=== PATIENT | male | born 1945 | race Caucasian/White ===

== ENCOUNTER 2019-08-05 06:35 | Outpatient (CLI) | payer MEDICARE, SELFPAY ==
[2019-08-05 07:47] LABS: Hemoglobin A1C 5.8 % (<5.7)
[2019-08-05 07:48] LABS: Blood Urea Nitrogen 21 mg/dL (9-20); Calcium 9.7 mg/dL (8.4-10.2); Carbon Dioxide 32 mmol/L (22-30); Chloride 104 mmol/L (98-107); Cholesterol 126 mg/dL (0-200); Estimated Glomerular Filt Rate > 60; Glucose 107 mg/dL (75-110); HDL Direct 40 mg/dL; Potassium 4.3 mmol/L (3.4-5.0); Sodium 141 mmol/L (137-145); Triglycerides 66 mg/dL (<150)
[2019-08-05 08:21] LABS: LDL Cholesterol Direct 67 mg/dL
== END 2019-08-05 06:36 | disposition home or self-care (01) ==
PROVIDERS: PCP Internal Medicine; Visit Provider Internal Medicine
DX: E11.9 Type 2 diabetes mellitus without complications (principal); E78.2 Mixed hyperlipidemia; I10 Essential (primary) hypertension; Z79.899 Other long term (current) drug therapy
CPT/HCPCS: 36415; 80048; 80061; 83036; 84443

== ENCOUNTER 2019-12-15 06:35 | Outpatient (CLI) | payer MEDICARE, SELFPAY ==
[2019-12-15 07:28] LABS: Anion Gap 7 mmol/L (8-16); Blood Urea Nitrogen 20 mg/dL (9-20); Calcium 9.5 mg/dL (8.4-10.2); Carbon Dioxide 30 mmol/L (22-30); Chloride 102 mmol/L (98-107); Cholesterol 118 mg/dL (0-200); Estimated Glomerular Filt Rate > 60; Glucose 111 mg/dL (75-110); HDL Direct 36 mg/dL; Potassium 4.4 mmol/L (3.4-5.0); Sodium 139 mmol/L (137-145); Triglycerides 66 mg/dL (<150)
[2019-12-15 07:39] LABS: LDL Cholesterol Direct 60 mg/dL
[2019-12-15 07:44] LABS: Hemoglobin A1C 5.8 % (<5.7)
== END 2019-12-15 06:36 | disposition home or self-care (01) ==
PROVIDERS: PCP Internal Medicine; Visit Provider Internal Medicine
DX: E11.9 Type 2 diabetes mellitus without complications (principal); I10 Essential (primary) hypertension; E78.2 Mixed hyperlipidemia
CPT/HCPCS: 36415; 80048; 80061; 83036

== ENCOUNTER 2020-03-02 06:36 | Outpatient (CLI) | payer MEDICARE, SELFPAY ==
[2020-03-02 07:44] LABS: Basophils Absolute Auto 0.1 K/mm3 (0.0-0.1); Basophils Percent Auto 0.6 % (0.2-1.2); Eosinophils Absolute Auto 0.3 K/mm3 (0-0.3); Eosinophils Percent Auto 3.2 % (0-4.4); Hematocrit 38.7 % (42.0-52.0); Hemoglobin 13.1 g/dL (14.0-18.0); Immature Granulocyte Absolute 0.03 K/mm3 (0.00-0.031); Immature Granulocyte Percent A 0.4 % (0-0.5); Lymphocytes Absolute Auto 2.14 K/mm3 (0.9-3.2); Lymphocytes Percent Auto 27.5 % (18.3-44.2); Mean Corpuscular HGB Conc 33.9 g/dl (32-36); Mean Corpuscular Hemoglobin 31.9 pg (26-34); Mean Corpuscular Volume 94.2 fl (80-100); Mean Platelet Volume 11.2 fl (7.4-10.4); Monocytes Absolute Auto 0.6 K/mm3 (0.1-0.6); Monocytes Percent Auto 7.4 % (2.6-8.5); Neutrophils Absolute Auto 4.7 K/mm3 (1.3-6.7); Neutrophils Percent Auto 60.9 % (45.5-73.1); Platelet Count Result 259 k/mm3 (150-375); Red Blood Count 4.11 M/mm3 (4.6-6.20); Red Cell Distribution Width 12.6 % (11.5-14.5); White Blood Count 7.8 K/mm3 (4.5-10.0)
[2020-03-02 07:53] LABS: Alanine Aminotransferase 32 U/L (4-50); Albumin Level 4.2 g/dL (3.5-5.1); Alkaline Phosphatase 94 U/L (38-126); Anion Gap 7 mmol/L (8-16); Aspartate Amino Transferase 30 U/L (17-59); Bilirubin,Total 0.9 mg/dL (0.2-1.3); Blood Urea Nitrogen 21 mg/dL (9-20); Calcium 9.8 mg/dL (8.4-10.2); Carbon Dioxide 32 mmol/L (22-30); Chloride 103 mmol/L (98-107); Cholesterol 119 mg/dL (0-200); Estimated Glomerular Filt Rate > 60; Glucose 109 mg/dL (75-110); HDL Direct 40 mg/dL; Potassium 4.7 mmol/L (3.4-5.0); Sodium 142 mmol/L (137-145); Triglycerides 72 mg/dL (<150)
[2020-03-02 08:04] LABS: LDL Cholesterol Direct 58 mg/dL
[2020-03-02 08:10] LABS: Hemoglobin A1C 5.5 % (<5.7)
[2020-03-02 09:43] LABS: Free T4 Free Thyroxine 0.89 ng/mL (0.78-2.19)
== END 2020-03-02 06:37 | disposition home or self-care (01) ==
PROVIDERS: PCP Internal Medicine; Visit Provider Internal Medicine
DX: E78.2 Mixed hyperlipidemia (principal); I10 Essential (primary) hypertension; E11.9 Type 2 diabetes mellitus without complications; Z79.899 Other long term (current) drug therapy
CPT/HCPCS: 36415; 80048; 80061; 80076; 83036; 84439; 84443; 85025

== ENCOUNTER 2020-03-08 07:32 | Outpatient (CLI) | payer MEDICARE, SELFPAY ==
[2020-03-08 09:39] LABS: Iron 112 ug/dL (49-181)
[2020-03-08 09:52] LABS: Percent Iron Saturation 35 % (20-50)
[2020-03-08 10:10] LABS: Prostate Specific Antigen 3.1 ng/mL (< OR = 4.0)
[2020-03-08 10:55] LABS: Folic Acid > 20.0 ng/mL (2.76->20)
[2020-03-10 23:41] LABS: Testosterone Total 671 ng/dL (250-1100)
[2020-03-11 04:32] LABS: Methylmalonic Acid 166 nmol/L (87-318)
[2020-03-11 04:54] LABS: Triiodothyronine T3 Free 2.9 pg/mL (2.3-4.2)
== END 2020-03-08 07:33 | disposition home or self-care (01) ==
PROVIDERS: PCP Internal Medicine; Visit Provider Internal Medicine
DX: R53.83 Other fatigue (principal); E11.9 Type 2 diabetes mellitus without complications; Z79.899 Other long term (current) drug therapy; R97.20 Elevated prostate specific antigen [PSA]; Z12.5 Encounter for screening for malignant neoplasm of prostate
CPT/HCPCS: 36415; 82607; 82728; 82746; 83540; 83550; 83921; 84153; 84403; 84481; G0103

== ENCOUNTER 2020-09-01 06:33 | Outpatient (CLI) | payer MEDICARE, SELFPAY ==
[2020-09-01 07:41] LABS: Potassium 4.3 mmol/L (3.4-5.0)
[2020-09-01 07:42] LABS: Hemoglobin A1C 5.9 % (<5.7)
[2020-09-01 07:44] LABS: Alanine Aminotransferase 36 U/L (4-50); Albumin Level 4.4 g/dL (3.5-5.1); Alkaline Phosphatase 98 U/L (38-126); Anion Gap 5 mmol/L (8-16); Aspartate Amino Transferase 35 U/L (17-59); Bilirubin,Total 0.7 mg/dL (0.2-1.3); Blood Urea Nitrogen 25 mg/dL (9-20); Calcium 10.1 mg/dL (8.4-10.2); Carbon Dioxide 34 mmol/L (22-30); Chloride 103 mmol/L (98-107); Cholesterol 132 mg/dL (0-200); Estimated Glomerular Filt Rate > 60; Glucose 119 mg/dL (75-110); HDL Direct 39 mg/dL; Sodium 142 mmol/L (137-145); Triglycerides 70 mg/dL (<150)
[2020-09-01 07:53] LABS: LDL Cholesterol Direct 72 mg/dL
[2020-09-04 07:56] LABS: Homocysteine 11.5 umol/L (<11.4)
[2020-09-05 12:05] LABS: Vitamin D 1,25 (OH)2 Total 29 pg/mL (18-72); Vitamin D2 1,25 (OH)2 <8 pg/mL; Vitamin D3 1,25 (OH)2 29 pg/mL
== END 2020-09-01 06:34 | disposition home or self-care (01) ==
PROVIDERS: PCP Internal Medicine; Visit Provider Internal Medicine
DX: E55.9 Vitamin D deficiency, unspecified (principal); E11.9 Type 2 diabetes mellitus without complications; E78.2 Mixed hyperlipidemia; R79.89 Other specified abnormal findings of blood chemistry; I10 Essential (primary) hypertension
CPT/HCPCS: 36415; 80053; 80061; 82652; 83036; 83090

== ENCOUNTER 2020-10-01 07:49 | Outpatient (CLI) | payer MEDICARE, SELFPAY ==
[2020-10-01 08:41] LABS: Prostate Specific Antigen 4.9 ng/mL (< OR = 4.0)
== END 2020-10-01 07:50 | disposition home or self-care (01) ==
PROVIDERS: PCP Internal Medicine; Visit Provider Internal Medicine
DX: R97.20 Elevated prostate specific antigen [PSA] (principal)
CPT/HCPCS: 36415; 84153

== ENCOUNTER 2020-11-15 02:33 | Day surgery (SDC) | payer MEDICARE, SELFPAY ==
[2020-11-04 13:46] VITALS: BMI 25.9
[2020-11-15 10:33] VITALS: BP 154/81; PULSE 68; RESP 18; TEMP 36.3; O2SAT 97
[2020-11-15] MEDS: LACTATED RINGERS 1,000 ML 150 ML IV CONT (10:45)
[2020-11-15 10:51] LABS: Glucose Point of Care 89 mg/dl (65-105)
--- NOTE | 2020-11-15 11:19 | WPDANESEPPF ---
Anes - Initial Pre Proc Eval Procedure: Operation Date: 11/15/20 11:00 Proposed Procedures p Colonoscopy - Don Ashby MD Date/Time: 11/15/20 11:19 Surgeon: Don Ashby MD Pre Op Diagnosis: iron deficiency anemia Patient Data Age: 75 Gender: M Height: 1.7 m Weight: 74.8 kg Last Vital Signs Temp 97.3 F L 11/15/20 10:33 Pulse 68 11/15/20 10:33 Resp 18 11/15/20 10:33 BP 154/81 H 11/15/20 10:33 Pulse Ox 97 11/15/20 10:33 Allergies Allergy/AdvReac Type Severity Reaction Status Date / Time adhesive tape Allergy Blister Verified 11/15/20 10:32 Home Medications Medication Instructions Recorded Confirmed Type xdbkqtom-irq-xflna acid 300 1 tablet PO DAILY #90 tablet 03/31/19 11/04/20 Rx mcg-lycopene 600 mcg-lutein 300 mcg tablet atorvastatin 80 mg tablet See Rx Instructions .ROUTE 02/26/20 11/04/20 Rx .COMPLEX #90 tablet famotidine 20 mg tablet See Rx Instructions .ROUTE 03/15/20 11/04/20 Rx .COMPLEX #90 tablet folic acid-vit B6-vit B12 2.2 1 tablet PO DAILY #90 tablet 04/29/20 11/04/20 Rx mg-25 mg-0.5 mg tablet amlodipine 5 mg tablet See Rx Instructions .ROUTE 07/02/20 11/04/20 Rx .COMPLEX #90 tablet losartan 50 mg tablet See Rx Instructions .ROUTE 07/20/20 11/04/20 Rx .COMPLEX #90 tablet isosorbide mononitrate 30 mg See Rx Instructions .ROUTE 08/13/20 11/04/20 Rx tablet,extended release 24 hr .COMPLEX #90 tablet metformin 1,000 mg tablet 1,000 mg PO DAILY #90 tablet 09/09/20 11/04/20 Rx Laboratory Tests 11/15/20 10:43 POC Capillary Glucose 89 mg/dl mg/dl (65-105) Patient hx anesthesia problems: none Family hx anesthesia problems: none PMFSH Past Medical History Medical History (Updated 11/03/20 @ 09:24 by Luda Quinonez) ASHD (arteriosclerotic heart disease) Benign essential HTN BMI 27.0-27.9,adult BMI 29.0-29.9,adult DJD (degenerative joint disease) DM2 (diabetes mellitus, type 2) Elevated PSA Encounter for Medicare annual wellness exam Encounter for routine adult health examination without abnormal findings Fatigue Follow up Grade I diastolic dysfunction Echo Hearing loss Hyperlipidemia Hypogonadism Iron deficiency anemia Lung nodule On penitentiary drug therapy Shingles Trochanteric bursitis, left hip Surgical History Surgical History (Updated 11/03/20 @ 09:24 by Luda Quinonez) History of bowel resection Hx of total knee replacement Family History Family History Mother Family history of diabetes mellitus in first degree relative Diabetes mellitus Other Family history of gout Hypertension Social History Social History Alcohol intake: current Substance use: never Substance use type: does not use Living arrangements: with family Gender identity (if verbalized by the patient): Male Anes - Eval Final PreProcedure Day of Procedure 11/15/20 11:19 Patient weight: overweight Heart: regular rate and rhythm Lungs: clear to auscultation Airway: Mallampati scale class III Neurological: alert and oriented Last oral intake: >/= 8 hours ASA classification: III Emergent: no Anesthetic plan: proceed Anesthesia type and monitoring: general GIVS and standard monitoring Informed Consent: The patient's anesthetic plan and its attendant risks and benefits were discussed with the patient/family/POA. Questions were solicited and answers provided to the satisfaction of the patient/family/POA.
--- NOTE | 2020-11-15 11:28 | PM.HPGS ---
History of Present Illness History of Present Illness Consent: Risks, benefits, and alternatives have been discussed and questions answered. Patient agrees to proceed with procedure. Chief complaint: iron deficiency anemia Narrative: Herb Rendon is a 75 year old male Who has been found to have dropping blood counts. His hemoglobin is now 13.1. 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 After that surgical procedure he lost 3 units of blood. One small polyp was removed when he had a colonoscopy not quite 2 years ago. He does not see blood in his stools Review of Systems Review of Systems: All systems reviewed & are unremarkable except as noted in HPI and below PMFSH Past Medical History Medical History ASHD (arteriosclerotic heart disease) Benign essential HTN BMI 27.0-27.9,adult BMI 29.0-29.9,adult DJD (degenerative joint disease) DM2 (diabetes mellitus, type 2) Elevated PSA Encounter for Medicare annual wellness exam Encounter for routine adult health examination without abnormal findings Fatigue Follow up Grade I diastolic dysfunction Echo Hearing loss Hyperlipidemia Hypogonadism Iron deficiency anemia Lung nodule 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 Shingles Trochanteric bursitis, left hip Surgical History Surgical History History of bowel resection Hx of total knee replacement Family History Family History Mother Family history of diabetes mellitus in first degree relative Diabetes mellitus Other Family history of gout Hypertension Social History Social History Alcohol intake: current Substance use: never Substance use type: does not use Living arrangements: with family Gender identity (if verbalized by the patient): Male Meds Home Medications and Allergies Home Medications Medication Instructions Recorded Confirmed Type fzvqofzx-iai-zipaz acid 300 1 tablet PO DAILY #90 tablet 03/31/19 11/04/20 Rx mcg-lycopene 600 mcg-lutein 300 mcg tablet atorvastatin 80 mg tablet See Rx Instructions .ROUTE 02/26/20 11/04/20 Rx .COMPLEX #90 tablet famotidine 20 mg tablet See Rx Instructions .ROUTE 03/15/20 11/04/20 Rx .COMPLEX #90 tablet folic acid-vit B6-vit B12 2.2 1 tablet PO DAILY #90 tablet 04/29/20 11/04/20 Rx mg-25 mg-0.5 mg tablet amlodipine 5 mg tablet See Rx Instructions .ROUTE 07/02/20 11/04/20 Rx .COMPLEX #90 tablet losartan 50 mg tablet See Rx Instructions .ROUTE 07/20/20 11/04/20 Rx .COMPLEX #90 tablet isosorbide mononitrate 30 mg See Rx Instructions .ROUTE 08/13/20 11/04/20 Rx tablet,extended release 24 hr .COMPLEX #90 tablet metformin 1,000 mg tablet 1,000 mg PO DAILY #90 tablet 09/09/20 11/04/20 Rx Allergies Allergy/AdvReac Type Severity Reaction Status Date / Time adhesive tape Allergy Blister Verified 11/15/20 10:32 Vital Signs Vital Signs - 24 hr 11/15/20 10:33 Temperature 36.3 C L Pulse Rate 68 Respiratory Rate 18 Blood Pressure 154/81 H Pulse Oximetry 97 Exam Resp: Auscultation: clear to auscultation bilaterally Cardio: Rate: regular rate Rhythm: regular rhythm GI: GI Palp: Yes Soft to palpation and No Tenderness to palpation present (GI) Assessment and Plan Assessment and plan (1) Iron deficiency anemia: Code(s): D50.9 - Iron deficiency anemia, unspecified Status: Acute Assessment and Plan: Colonoscopy with possible biopsy or polypectomy or cautery or injection of substances.
[2020-11-15 11:46] VITALS: BP 115/65; PULSE 67; RESP 22; O2SAT 95
[2020-11-15 11:56] VITALS: BP 122/70; PULSE 60; RESP 22; O2SAT 96
[2020-11-15 12:06] VITALS: BP 118/21; PULSE 74; RESP 21; O2SAT 98
[2020-11-15 12:11] VITALS: BP 118/21; PULSE 74; RESP 21; O2SAT 98
== END 2020-11-15 12:41 | disposition home or self-care (01) ==
PROVIDERS: PCP Internal Medicine; Visit Provider Internal Medicine Gastroenterology
PROC: 0DJD8ZZ Inspection of Lower Intestinal Tract, Via Natural or Artificial Opening Endoscopic (ICD-10-PCS; CPT 45378; principal; 2020-11-15 11:00)
DX: D50.9 Iron deficiency anemia, unspecified (principal); I25.10 Atherosclerotic heart disease of native coronary artery without angina pectoris; I10 Essential (primary) hypertension; E11.9 Type 2 diabetes mellitus without complications; E78.5 Hyperlipidemia, unspecified; K57.30 Diverticulosis of large intestine without perforation or abscess without bleeding; K64.8 Other hemorrhoids; M19.90 Unspecified osteoarthritis, unspecified site; R91.1 Solitary pulmonary nodule; R97.20 Elevated prostate specific antigen [PSA]; Z90.49 Acquired absence of other specified parts of digestive tract; Z96.659 Presence of unspecified artificial knee joint; Z79.899 Other long term (current) drug therapy
CPT/HCPCS: 45378; 82948; J7120

== ENCOUNTER 2020-12-22 09:58 | Outpatient (CLI) | payer MEDICARE, SELFPAY ==
[2020-12-22 10:25] LABS: Basophils Absolute Auto 0.1 K/mm3 (0.0-0.1); Basophils Percent Auto 0.5 % (0.2-1.2); Eosinophils Absolute Auto 0.2 K/mm3 (0-0.3); Eosinophils Percent Auto 1.9 % (0-4.4); Hematocrit 37.9 % (42.0-52.0); Hemoglobin 12.7 g/dL (14.0-18.0); Immature Granulocyte Absolute 0.06 K/mm3 (0.00-0.031); Immature Granulocyte Percent A 0.6 % (0-0.5); Lymphocytes Absolute Auto 1.78 K/mm3 (0.9-3.2); Lymphocytes Percent Auto 16.5 % (18.3-44.2); Mean Corpuscular HGB Conc 33.5 g/dl (32-36); Mean Corpuscular Hemoglobin 32.8 pg (26-34); Mean Corpuscular Volume 97.9 fl (80-100); Mean Platelet Volume 10.6 fl (7.4-10.4); Monocytes Absolute Auto 0.8 K/mm3 (0.1-0.6); Monocytes Percent Auto 7.1 % (2.6-8.5); Neutrophils Absolute Auto 7.9 K/mm3 (1.3-6.7); Neutrophils Percent Auto 73.4 % (45.5-73.1); Platelet Count Result 233 k/mm3 (150-375); Red Blood Count 3.87 M/mm3 (4.6-6.20); White Blood Count 10.8 K/mm3 (4.5-10.0)
[2020-12-22 10:39] LABS: Anion Gap 1 mmol/L (8-16); Blood Urea Nitrogen 23 mg/dL (9-20); Calcium 9.7 mg/dL (8.4-10.2); Carbon Dioxide 33 mmol/L (22-30); Chloride 104 mmol/L (98-107); Estimated Glomerular Filt Rate > 60; Glucose 121 mg/dL (65-110); Potassium 4.4 mmol/L (3.4-5.0); Sodium 138 mmol/L (137-145)
[2020-12-22 10:50] LABS: Troponin I < 0.012 ng/mL (0.000-0.034)
== END 2020-12-22 09:59 | disposition home or self-care (01) ==
PROVIDERS: PCP Internal Medicine; Visit Provider Internal Medicine
DX: I25.10 Atherosclerotic heart disease of native coronary artery without angina pectoris (principal); I10 Essential (primary) hypertension; I51.9 Heart disease, unspecified
CPT/HCPCS: 36415; 80048; 84484; 85025

== ENCOUNTER 2021-01-15 07:21 | Outpatient (CLI) | payer MEDICARE, SELFPAY ==
[2021-01-15 08:20] LABS: Basophils Percent Auto 0.4 % (0.2-1.2); Eosinophils Absolute Auto 0.3 K/mm3 (0-0.3); Eosinophils Percent Auto 3.6 % (0-4.4); Hematocrit 37.6 % (42.0-52.0); Hemoglobin 12.8 g/dL (14.0-18.0); Immature Granulocyte Absolute 0.03 K/mm3 (0.00-0.031); Immature Granulocyte Percent A 0.4 % (0-0.5); Lymphocytes Absolute Auto 2.06 K/mm3 (0.9-3.2); Lymphocytes Percent Auto 29.3 % (18.3-44.2); Mean Corpuscular Hemoglobin 32.6 pg (26-34); Mean Corpuscular Volume 95.7 fl (80-100); Mean Platelet Volume 11.1 fl (7.4-10.4); Monocytes Absolute Auto 0.6 K/mm3 (0.1-0.6); Monocytes Percent Auto 8.5 % (2.6-8.5); Neutrophils Absolute Auto 4.1 K/mm3 (1.3-6.7); Neutrophils Percent Auto 57.8 % (45.5-73.1); Platelet Count Result 272 k/mm3 (150-375); Red Blood Count 3.93 M/mm3 (4.6-6.20); Red Cell Distribution Width 12.6 % (11.5-14.5)
[2021-01-15 08:25] LABS: Add Urine Microscopic? YES; Appearance Urine Clear (Clear); Bilirubin Urine Negative (Negative); Blood Urine 3+ (Negative); Color Urine Yellow (Yellow); Glucose Urine UA Negative (Negative); Ketones Urine Negative (Negative); Leukocyte Esterase Ur Negative LEU/UL (Negative); Mucus Urine Rare /lpf; Nitrate Urine Negative (Negative); Protein Urine Negative (Negative); Specific Grav Ur 1.019 (1.001-1.035); Squamous Epithelial Cell Urine Rare /hpf (Few); Urobilinogen Urine Negative mg/dL (<2.0); WBC Urine 0-3 /hpf
[2021-01-15 08:35] LABS: Anion Gap 10 mmol/L (8-16); Blood Urea Nitrogen 24 mg/dL (9-20); Calcium 9.6 mg/dL (8.4-10.2); Carbon Dioxide 29 mmol/L (22-30); Chloride 103 mmol/L (98-107); Cholesterol 128 mg/dL (0-200); Estimated Glomerular Filt Rate > 60; Glucose 107 mg/dL (65-110); HDL Direct 42 mg/dL; Potassium 4.2 mmol/L (3.4-5.0); Sodium 142 mmol/L (137-145); Triglycerides 43 mg/dL (<150)
[2021-01-15 08:36] LABS: Hemoglobin A1C 5.6 % (<5.7)
[2021-01-15 08:45] LABS: LDL Cholesterol Direct 56 mg/dL
[2021-01-20 11:03] LABS: Vitamin D 1,25 (OH)2 Total 28 pg/mL (18-72); Vitamin D2 1,25 (OH)2 <8 pg/mL; Vitamin D3 1,25 (OH)2 28 pg/mL
== END 2021-01-15 07:22 | disposition home or self-care (01) ==
PROVIDERS: PCP Internal Medicine; Visit Provider Internal Medicine
DX: Z51.81 Encounter for therapeutic drug level monitoring (principal); Z79.899 Other long term (current) drug therapy; I25.10 Atherosclerotic heart disease of native coronary artery without angina pectoris; I10 Essential (primary) hypertension; E78.2 Mixed hyperlipidemia; E11.9 Type 2 diabetes mellitus without complications; R79.89 Other specified abnormal findings of blood chemistry; E55.9 Vitamin D deficiency, unspecified
CPT/HCPCS: 36415; 80048; 80061; 81001; 82652; 83036; 85025

== ENCOUNTER 2021-01-31 14:54 | Outpatient (CLI) | payer MEDICARE, SELFPAY ==
--- NOTE | ~2021-01-31 | XR_ITS ---
XR lumbar spine min 4V DATE: 01/31/2021 15:17 INDICATION: Injury 30+ years ago. Mid low back pain radiating to legs and feet TECHNIQUE: AP, lateral, bilateral oblique, coned lateral lumbosacral views COMPARISON: None FINDINGS: There is moderate rotatory levoscoliosis. There is severe degenerative disc disease throughout the lumbar and lumbosacral spine. There is degenerative changes apophyseal joints; the left L5 pars interarticularis area is not defini tively cleared; pars defect is not excluded. No spondylolysis is noted otherwise. There is grade 1 anterolisthesis at L4-5 due to degenerative change at the apophyseal joints. Otherwise no fracture or bone destruction is evident. The lumbar pedicles appear intact. The sacroiliac joints are unremarkable. Pelvis suture overlies the mid pelvic area. Status post bilateral inguinal herniorrhaphy. Prominent abdominal aortic calcification, without evidence of aneurysm IMPRESSION: Moderately prominent rotatory levoscoliosis and multilevel severe degenerative disc disea se of the lumbar spine Grade 1 anterolisthesis at L4-5 due to degenerative change at the apophyseal joints Cannot exclude a left L5 pars interarticularis defect Reviewed, dictated and finalized at location A. IMPRESSION: Moderately prominent rotatory levoscoliosis and multilevel severe d egenerative disc disease of the lumbar spine Grade 1 anterolisthesis at L4-5 due to degenerative change at the apophyseal star ints Cannot exclude a left L5 pars interarticularis defect
== END 2021-01-31 14:55 | disposition home or self-care (01) ==
LOC: ANHIMG 14:58
PROVIDERS: PCP Internal Medicine; Visit Provider Internal Medicine
DX: M54.50 Low back pain, unspecified (principal); M41.86 Other forms of scoliosis, lumbar region; M51.36 Other intervertebral disc degeneration, lumbar region; M43.16 Spondylolisthesis, lumbar region
CPT/HCPCS: 72110

== ENCOUNTER 2021-02-06 07:43 | Outpatient (CLI) | payer MEDICARE, SELFPAY ==
--- NOTE | ~2021-02-06 | MR_ITS ---
EXAMINATION: MR cervical spine wo con EXAM DATE: 02/06/2021 08:29 INDICATION: M54.10 - Radiculopathy, site unspecified. TECHNIQUE: Multi-sequential, multiplanar MR images of the cervical spine were obtained without contra st. Axial T2, axial T2 MERGE sequence. Sagittal T1, T2, T2 fat saturation images also obtained. Com parison is made to prior examination from 10/05/2016. Correlation was made with thyroid ultrasound 10/17. FINDINGS: There is moderate to severe loss of the disc height from C3 through T1. There is 2 mm dege nerative retrolisthesis C2 on C3. The spinal cord signal intensity and intrinsic morphology is normal . Cervicomedullary junction is normal in appearance. There are no suspicious marrow signal abnormalit ies. There is a left thyroid lobe nodule measuring about 4 cm, may have increased in size compared to 2017 thyroid ultrasound. Recommend thyroid ultrasound. Level by level evaluation: C2-C3: Disc does not extend beyond the endplate margin. Uncovertebral joint arthropathy: None. Facet joint arthropathy: Moderate bilateral. Neural foraminal stenosis: No stenosis. Central canal stenosis: No stenosis. C3-C4: There is a mild to moderate diffuse disc bulge. Uncovertebral joint arthropathy: Moderate to severe. Facet joint arthropathy: Moderate to severe. Neural foraminal stenosis: Moderate to severe bilateral, right greater than left. Central canal stenosis: Mild. C4-C5: There is a mild to moderate diffuse disc bulge. Uncovertebral joint arthropathy: Moderate to severe. Facet joint arthropathy: Moderate to severe. Neural foraminal stenosis: Severe left, moderate to severe right. Central canal stenosis: Mild. C5-C6: There is a mild to moderate diffuse disc bulge asymmetric to the right Uncovertebral joint arthropathy: Severe right, moderate left. Facet joint arthropathy: Moderate bilateral. Neural foraminal stenosis: Severe right, moderate to severe left. Central canal stenosis: Mild. C6-C7: There is a mild to moderate diffuse disc bulge. Uncovertebral joint arthropathy: Severe right, moderate to severe left. Facet joint arthropathy: Moderate bilateral. Neural foraminal stenosis: Severe right, moderate to severe left. Central canal stenosis: Mild. C7-T1: There is a mild diffuse disc bulge. Uncovertebral joint arthropathy: Moderate bilateral. Facet joint arthropathy: Mild to moderate bilateral. Neural foraminal stenosis: Moderate left, mild right. Central canal stenosis: Mild. There was advanced arthropathy, significant neural foraminal stenosis on prior study, but this may mcdonald ve demonstrated mild progression. IMPRESSION: 1. Left thyroid lobe nodule; follow-up thyroid ultrasound for risk stratification. 2. Severe cervical spondylosis, significant multilevel neural foraminal stenosis. Reviewed, dictated and finalized at location A. IMPRESSION: 1. Left thyroid lobe nodule; follow-up thyroid ultrasound for risk stratificat ion. 2. Severe cervical spondylosis, significant multilevel neural foraminal stenos is.
== END 2021-02-06 07:44 | disposition home or self-care (01) ==
LOC: ANHIMG 07:44
PROVIDERS: PCP Internal Medicine; Visit Provider Internal Medicine
DX: M47.22 Other spondylosis with radiculopathy, cervical region (principal)
CPT/HCPCS: 72141

== ENCOUNTER 2021-02-08 12:16 | Outpatient (CLI) | payer MEDICARE, SELFPAY ==
--- NOTE | ~2021-02-08 | MR_ITS ---
EXAMINATION: MR thoracic spine wo con DATE: 02/08/2021 13:45 INDICATION: Radiculopathy, site unspecified. TECHNIQUE: Magnetic resonance imaging (MRI) of the thoracic spine was performed without intravenous c ontrast. Sagittal localizer T1-weighted FSE of the cervical spine was obtained. Thoracic spine sequen addis included sagittal T2-weighted FSE, sagittal T1-weighted FSE, sagittal T2-weighted FS FSE, and axi al T2-weighted FSE. COMPARISON: None FINDINGS: There is 13 degrees dextroscoliosis of thoracic spine. There is mild chronic anterior wedgi ng of T3-T8 vertebral bodies. There is decreased disc height at all levels, severe at T4-T5 and from T6-T7 through T10-T11 with endplate remodeling. There is multilevel facet joint osteoarthritis bilate rally, severe on the right at T4-T5. There is multilevel mild neural foraminal stenosis bilaterally. On the right, there is moderate neural foraminal stenosis at T4-T5 and T10-T11. On the left, there is moderate neural foraminal stenosis at T8-T9, T9-T10, and T11-T12. The discs are bulging at all thora cic levels with the exception of T5-T6 with mild central canal stenosis. The spinal cord signal inten sity is normal. IMPRESSION: 1. Severe thoracic spondylosis. 2. Thoracic dextroscoliosis. Reviewed, dictated and finalized at location A.
--- NOTE | ~2021-02-08 | MR_ITS ---
EXAMINATION: MR lumbar spine wo con DATE: 02/08/2021 13:45 INDICATION: Radiculopathy, site unspecified. TECHNIQUE: Magnetic resonance imaging (MRI) of the lumbar spine was performed without intravenous con trast. Sequences included sagittal T2-weighted FSE, sagittal T2-weighted FS FSE, sagittal T1-weighted FSE, and axial T2-weighted FSE. COMPARISON: Lumbar spine MRI 10/18/2015 FINDINGS: There is 22 degrees levoscoliosis of lumbar spine. There is 3 mm retrolisthesis of L2 on L3 and 3 mm anterolisthesis of L4 on L5. Vertebral body heights are normal. There is severely decreased disc height from L1-L2 through L5-S1 with endplate remodeling. Epidural lipomatosis is noted. The di stal spinal cord signal intensity is normal. The conus medullaris is at T12-L1. The following disc le vels are specifically discussed: L1-L2: The disc is bulging. There is moderate right and mild left facet joint osteoarthritis. There i s moderate right and mild left neural foraminal stenosis. There is mild central canal stenosis. L2-L3: The disc is bulging and has an annular fissure. There is severe bilateral facet joint osteoart hritis. There is moderate right and mild left neural foraminal stenosis. There is mild central canal stenosis. L3-L4: The disc is bulging and has an annular fissure. There is severe bilateral facet joint osteoart hritis. There is moderate right and mild left neural foraminal stenosis. There is moderate central ca nal stenosis. L4-L5: The disc is bulging and has an annular fissure. There is severe bilateral facet joint osteoart hritis. There is moderate bilateral neural foraminal stenosis. There is severe central canal stenosis . L5-S1: The disc is bulging and has an annular fissure. There is severe bilateral facet joint osteoart hritis. There is moderate bilateral neural foraminal stenosis. There is mild central canal stenosis. IMPRESSION: 1. Severe lumbar spondylosis, stable from 10/18/15. 2. Lumbar levoscoliosis. Reviewed, dictated and finalized at location A.
== END 2021-02-08 12:17 | disposition home or self-care (01) ==
LOC: ANHIMG 12:19
PROVIDERS: PCP Internal Medicine; Visit Provider Internal Medicine
DX: M54.10 Radiculopathy, site unspecified (principal); M54.14 Radiculopathy, thoracic region; M54.12 Radiculopathy, cervical region; M47.814 Spondylosis without myelopathy or radiculopathy, thoracic region; M41.86 Other forms of scoliosis, lumbar region; M41.84 Other forms of scoliosis, thoracic region; M47.816 Spondylosis without myelopathy or radiculopathy, lumbar region
CPT/HCPCS: 72146; 72148

== ENCOUNTER 2021-03-21 07:47 | Outpatient (CLI) | payer MEDICARE, SELFPAY ==
[2021-03-21 08:40] LABS: Anion Gap 6 mmol/L (8-16); Blood Urea Nitrogen 26 mg/dL (9-20); Calcium 10.1 mg/dL (8.4-10.2); Carbon Dioxide 31 mmol/L (22-30); Chloride 104 mmol/L (98-107); Estimated Glomerular Filt Rate > 60; Glucose 106 mg/dL (65-110); Potassium 4.5 mmol/L (3.4-5.0); Sodium 141 mmol/L (137-145)
== END 2021-03-21 07:48 | disposition home or self-care (01) ==
LOC: ANHSURGERY 07:52
PROVIDERS: Anesthesiology; PCP Internal Medicine; Visit Provider Otolaryngology
DX: Z01.818 Encounter for other preprocedural examination (principal); E11.9 Type 2 diabetes mellitus without complications
CPT/HCPCS: 36415; 80048

== ENCOUNTER 2021-03-29 00:54 | Day surgery (SDC) | payer MEDICARE, SELFPAY ==
[2021-03-15 13:42] VITALS: BMI 26.6
--- NOTE | 2021-03-15 14:01 | PC.NURSE ---
Report to the Outpatient Waiting Room, entrance under the green pavilion located off [facility], at time ___6:00AM____ on date __03/29/21 . OR Time: __7:30AM . - You and your visitor will be asked a series of questions to screen for COVID 19 for your protection. - A mask is required within the hospital. - Only one visitor is allowed at this time. Patient visitors will be guided where to wait when not with patient. Preoperative COVID Testing Requirements: No COVID Test needed if: (proof is required; if not received patient will have Rapid Test prior to entry) - Patient has received COVID Vaccine at least 14 days prior to procedure date or - Patient has positive COVID test result within last 90 days of surgery date. COVID Test needed if above criteria is not met If not COVID vaccinated a COVID test must be conducted within 72 hours of surgery and patient is asked to isolate self from time of testing until procedure. You will go to the [facility] for your COVID testing. The [facility] site is located at the corner of [address] [facility]. You will only be called if COVID results are positive and your surgeon may reschedule your elective surgery date. Patients may have clear liquids (water, carbonated beverages, clear teas, apple juice) until 3 hours prior to surgery with a maximum of 20 ounces. - No food from midnight until time of surgery - Infants may have breast milk until 4 hours before surgery, infant formula 6 hours prior to surgery. - Children will be allowed to drink immediately following surgery. If applicable, please bring a bottle or sippy cup to assist with drinking. Juice, water, soda, and popsicles are readily available. For infants on formula, please bring formula the day of surgery. Pacifiers are allowed. Take the following medications with a SIP of water the morning of surgery: ___AMLODIPINE, ISOSORBIDE Medications to discontinue per physician ASPIRIN-7 DAYS PRE-OP PER DR DUARTE, ALL VITAMINS/SUPPLEMENTS 3 DAYS PRE-OP Date to take last dose__03/22/21 & 03/24/21 Please no make-up, nail kiswahili, hairspray, perfume, deodorant, or body powder the day of surgery. No jewelry (including any body piercings) or valuables the day of surgery, leave them at home. Please take a shower or bath the night before, or the morning of, surgery with an antibacterial soap. Wear comfortable, loose fitting clothing. Children are encouraged to wear pajamas. - Jewelry must be removed prior to entering the operating room. Rings and piercings that are not removed may be cut off. - The hospital will not accept responsibility for valuables. - Please leave all valuables, including medications, at home the day of surgery. If you are going home after surgery, a licensed auto transport driver must drive you home. - NO public transportation without another adult. - We recommend that an adult stay with you for 24 hours following discharge. - We also recommend that you do not drive, make important decision, drink alcoholic beverages, or take any drugs that were not prescribed by your health care provider for at least 24 hours after your discharge time. For Pediatric surgeries, we recommend two adults accompany the child home (only one inside the building at this time). Follow any additional instructions given to you from your surgeon. Telephone instructions given to ____PATIENT and asked if any additional questions and then verbalized understanding. Patient advised to call surgeon office or pre surgery nurse liaison [phone] if any additional questions.
--- NOTE | 2021-03-23 12:07 | P.HP_ITS ---
History of Present Illness History of Present Illness Consent: Risks, benefits, and alternatives have been discussed and questions answered. Patient agrees to proceed with procedure. Chief complaint: left thyroid mass Narrative: Herb Rendon is a 75 year old male with a left thyroid nodule that is been enlarging in the last lolis Review of Systems Review of Systems: All systems reviewed & are unremarkable except as noted in HPI and below PMFSH Past Medical History Medical History ASHD (arteriosclerotic heart disease) Benign essential HTN BMI 26.0-26.9,adult BMI 27.0-27.9,adult BMI 29.0-29.9,adult Diaphoresis DJD (degenerative joint disease) DM2 (diabetes mellitus, type 2) Elevated PSA Encounter for Medicare annual wellness exam Encounter for routine adult health examination without abnormal findings Fatigue Follow up Grade I diastolic dysfunction Echo Hearing loss Hx of colonic polyps Hyperlipidemia Hypogonadism Iron deficiency anemia Levoscoliosis of lumbar spine Light headedness Lung nodule Microscopic hematuria On retirement drug therapy Peripheral neuropathy Shingles Spondylosis Trochanteric bursitis, left hip Surgical History Surgical History History of bowel resection Hx of total knee replacement Family History Family History Mother Family history of diabetes mellitus in first degree relative Diabetes mellitus Other Family history of gout Hypertension Social History Social History Smoking status: Never smoker Alcohol intake: current Substance use: never Substance use type: does not use Additional living arrangements comments: Gender identity (if verbalized by the patient): Male Spiritual care concerns: No Meds Home Medications and Allergies Home Medications Medication Instructions Recorded Confirmed Type bsggfile-oou-bhrcp acid 300 1 tablet PO DAILY #90 tablet 03/31/19 03/15/21 Rx mcg-lycopene 600 mcg-lutein 300 mcg tablet folic acid-vit B6-vit B12 2.2 1 tablet PO DAILY #90 tablet 04/29/20 03/15/21 Rx mg-25 mg-0.5 mg tablet cholecalciferol (vitamin D3) 25 25 mcg PO DAILY 01/26/21 03/15/21 History mcg (1,000 unit) tablet blood sugar diagnostic #100 ea 03/02/21 Rx amlodipine 5 mg PO QAM 03/15/21 03/15/21 History aspirin 81 mg PO DAILY 03/15/21 03/15/21 History atorvastatin 80 mg PO DAILY 03/15/21 03/15/21 History isosorbide mononitrate 30 mg PO QAM 03/15/21 03/15/21 History losartan 50 mg PO QAM 03/15/21 03/15/21 History metformin 1,000 mg PO QAM 03/15/21 03/15/21 History famotidine 20 mg tablet See Rx Instructions .ROUTE 03/21/21 Rx .COMPLEX #90 tablet Allergies Allergy/AdvReac Type Severity Reaction Status Date / Time adhesive tape Allergy Blister Verified 03/15/21 13:35 Exam Narrative: chest clear heart rhythm murmurs abdomen soft extremities negative enlarged a large left thyroid nodule Assessment and Plan Additional Plan plan left thyroidectomy
--- NOTE | 2021-03-28 09:58 | WPDANESEPPF ---
Anes - Initial Pre Proc Eval Procedure: Operation Date: 03/29/21 09:00 Proposed Procedures p Left Thyroidectomy - Errol Hernandez MD Date/Time: 03/28/21 09:58 Surgeon: Errol Hernandez MD Pre Op Diagnosis: left thyroid mass Patient Data Age: 75 Gender: M Height: 1.7 m Weight: 77 kg Allergies Allergy/AdvReac Type Severity Reaction Status Date / Time adhesive tape Allergy Blister Verified 03/29/21 07:12 Home Medications Medication Instructions Recorded Confirmed Type vjmaebau-hxk-aclui acid 300 1 tablet PO DAILY #90 tablet 03/31/19 03/29/21 Rx mcg-lycopene 600 mcg-lutein 300 mcg tablet folic acid-vit B6-vit B12 2.2 1 tablet PO DAILY #90 tablet 04/29/20 03/29/21 Rx mg-25 mg-0.5 mg tablet cholecalciferol (vitamin D3) 25 25 mcg PO DAILY 01/26/21 03/29/21 History mcg (1,000 unit) tablet blood sugar diagnostic #100 ea 03/02/21 Rx amlodipine 5 mg PO QAM 03/15/21 03/29/21 History aspirin 81 mg PO DAILY 03/15/21 03/29/21 History atorvastatin 80 mg PO DAILY 03/15/21 03/29/21 History isosorbide mononitrate 30 mg PO QAM 03/15/21 03/29/21 History losartan 50 mg PO QAM 03/15/21 03/29/21 History metformin 1,000 mg PO QAM 03/15/21 03/29/21 History famotidine 20 mg tablet See Rx Instructions .ROUTE 03/21/21 Rx .COMPLEX #90 tablet Patient hx anesthesia problems: none Family hx anesthesia problems: none Results Review: All pre-operative results and documents have been reviewed as part of the pre-operative evaluation. [facility] Past Medical History Medical History (Updated 03/28/21 @ 10:03 by Flaquito Cespedes DO) ASHD (arteriosclerotic heart disease) Benign essential HTN BMI 26.0-26.9,adult BMI 27.0-27.9,adult BMI 29.0-29.9,adult CAD (coronary artery disease) LAD stenosis Diaphoresis DJD (degenerative joint disease) DM2 (diabetes mellitus, type 2) Elevated PSA Encounter for Medicare annual wellness exam Encounter for routine adult health examination without abnormal findings Fatigue Follow up Grade I diastolic dysfunction Echo Hearing loss Hx of colonic polyps Hyperlipidemia Hypogonadism Iron deficiency anemia Levoscoliosis of lumbar spine Light headedness Lung nodule Microscopic hematuria MVP (mitral valve prolapse) On [employer] drug therapy Peripheral neuropathy Shingles Spondylosis Trochanteric bursitis, left hip Surgical History Surgical History History of bowel resection Hx of total knee replacement Family History Family History Mother Family history of diabetes mellitus in first degree relative Diabetes mellitus Other Family history of gout Hypertension Social History Social History Smoking status: Never smoker Alcohol intake: current Substance use: never Substance use type: does not use Living arrangements: with family Additional living arrangements comments: Gender identity (if verbalized by the patient): Male Spiritual care concerns: No Anes - Eval Final PreProcedure Day of Procedure 03/28/21 09:58 Patient weight: overweight Heart: regular rate and rhythm Lungs: clear to auscultation and normal air movement Airway: Mallampati scale class II Neurological: alert and oriented Last oral intake: >/= 8 hours ASA classification: III Emergent: no Anesthetic plan: proceed Anesthesia type and monitoring: general ETT and standard monitoring Results Review: All pre-operative results and documents have been reviewed as part of the pre-operative evaluation. Informed Consent: The patient's anesthetic plan and its attendant risks and benefits were discussed with the patient/family/POA. Questions were solicited and answers provided to the satisfaction of the patient/family/POA.
[2021-03-29] VITALS (7 sets, daily range): BP systolic 138–175; BP diastolic 76–87; PULSE 62–72; RESP 16; TEMP 36.1–36.4; O2SAT 98–100
--- NOTE | 2021-03-29 05:50 | WPDHPUPDATE1 ---
History and Physical Update Update Date/Time: 03/29/21 05:50 History and Physical has been reviewed, including an updated exam of the patient. There are NO changes in the patient's condition. Risks, benefits, and alternatives have been discussed and questions answered. Patient agrees to proceed with procedure.
[2021-03-29] MEDS: LACTATED RINGERS 1,000 ML 30 ML IV CONT ×2 (07:30→09:59)
[2021-03-29] MEDS: ACETAMINOPHEN 500 MG TABLET 1000 MG PO (07:30)
[2021-03-29 07:36] LABS: Glucose Point of Care 97 mg/dl (65-105)
[2021-03-29] MEDS: ceFAZolin 2 GM/D5W 50 ML 2 GM/50 ML BAG IVPB (08:59)
[2021-03-29] MEDS: LIDO 1%/EPINEPHRINE 1:100,000 50 ML VIAL 10 ML INFILTRATE (09:15)
--- NOTE | 2021-03-29 09:42 | W.PM.PROC2 ---
Procedure Note - Detailed Date of Procedure 03/29/21 Pre-op Diagnosis left thyroid mass Post-op Diagnosis same Procedure Performed Left thyroidectomy Surgeon Errol Hernandez MD Anesthesia general Description of Procedure Patient prepped and draped usual fashion duction general anesthesia a low collar incision was made and subplatysmal flaps elevated midline strap muscle divided the [] thyroid was identified a large cyst was identified in the [] thyroid lobe with the the ligature of the superior mid middle middle pedicles were removed the isthmus was divided the parathyroid was identified and left undisturbed the recurrent laryngeal nerve was identified hematuria placed for hemostasis and closed in layers with chromic and Monocryl Drains No Packing No Pathology yes Complications No immediate complications Condition stable Disposition PACU
[2021-03-29 10:09] LABS: Glucose Point of Care 95 mg/dl (65-105)
[2021-03-29] MEDS: fentaNYL CITRATE INJ (*CRX) 100 MCG/2 ML VIAL 25 MCG IV PUSH ×2 (10:09→10:18)
[2021-03-29] MEDS: oxyCODONE HCL (*CRX) 5 MG TAB IR PO (11:02)
== END 2021-03-29 11:30 | disposition home or self-care (01) ==
PROVIDERS: PCP Internal Medicine; Visit Provider Otolaryngology
PROC: (CPT 60220; principal; 2021-03-29 09:00)
DX: E04.2 Nontoxic multinodular goiter (principal); I25.10 Atherosclerotic heart disease of native coronary artery without angina pectoris; I11.9 Hypertensive heart disease without heart failure; E11.40 Type 2 diabetes mellitus with diabetic neuropathy, unspecified; E78.5 Hyperlipidemia, unspecified; D50.9 Iron deficiency anemia, unspecified; I34.1 Nonrheumatic mitral (valve) prolapse; Z79.84 Long term (current) use of oral hypoglycemic drugs
CPT/HCPCS: 60220; 82948; 88307; A9270; J0330; J0690; J1100; J2405; J2704; J3010; J7120

== ENCOUNTER 2021-05-24 07:18 | Outpatient (CLI) | payer MEDICARE, SELFPAY ==
[2021-05-24 08:04] LABS: Basophils Absolute Auto 0.1 K/mm3 (0.0-0.1); Basophils Percent Auto 0.6 % (0.2-1.2); Eosinophils Absolute Auto 0.3 K/mm3 (0-0.3); Eosinophils Percent Auto 3.3 % (0-4.4); Hematocrit 39.8 % (42.0-52.0); Hemoglobin 13.5 g/dL (14.0-18.0); Immature Granulocyte Absolute 0.04 K/mm3 (0.00-0.031); Immature Granulocyte Percent A 0.5 % (0-0.5); Lymphocytes Absolute Auto 1.87 K/mm3 (0.9-3.2); Lymphocytes Percent Auto 22.3 % (18.3-44.2); Mean Corpuscular HGB Conc 33.9 g/dl (32-36); Mean Corpuscular Hemoglobin 32.5 pg (26-34); Mean Corpuscular Volume 95.7 fl (80-100); Mean Platelet Volume 10.8 fl (7.4-10.4); Monocytes Absolute Auto 0.7 K/mm3 (0.1-0.6); Neutrophils Absolute Auto 5.5 K/mm3 (1.3-6.7); Neutrophils Percent Auto 65.3 % (45.5-73.1); Platelet Count Result 250 k/mm3 (150-375); Red Blood Count 4.16 M/mm3 (4.6-6.20); Red Cell Distribution Width 13.2 % (11.5-14.5); White Blood Count 8.4 K/mm3 (4.5-10.0)
[2021-05-24 09:08] LABS: Alanine Aminotransferase 32 U/L (4-50); Albumin Level 4.5 g/dL (3.5-5.1); Alkaline Phosphatase 107 U/L (38-126); Anion Gap 10 mmol/L (8-16); Aspartate Amino Transferase 34 U/L (17-59); Bilirubin,Total 0.9 mg/dL (0.2-1.3); Blood Urea Nitrogen 29 mg/dL (9-20); Calcium 10.1 mg/dL (8.4-10.2); Carbon Dioxide 28 mmol/L (22-30); Chloride 103 mmol/L (98-107); Cholesterol 141 mg/dL (0-200); Estimated Glomerular Filt Rate > 60; Glucose 111 mg/dL (65-110); HDL Direct 43 mg/dL; Potassium 4.7 mmol/L (3.4-5.0); Sodium 141 mmol/L (137-145); Triglycerides 54 mg/dL (<150)
[2021-05-24 09:09] LABS: Free T4 Free Thyroxine 0.87 ng/mL (0.78-2.19)
[2021-05-24 09:19] LABS: Hemoglobin A1C 5.7 % (<5.7)
[2021-05-24 09:20] LABS: LDL Cholesterol Direct 75 mg/dL
[2021-05-24 10:28] LABS: Folic Acid > 20.0 ng/mL (2.76->20)
== END 2021-05-24 07:19 | disposition home or self-care (01) ==
PROVIDERS: PCP Internal Medicine; Visit Provider Internal Medicine
DX: I10 Essential (primary) hypertension (principal); E11.9 Type 2 diabetes mellitus without complications; R79.89 Other specified abnormal findings of blood chemistry; E78.2 Mixed hyperlipidemia; Z79.899 Other long term (current) drug therapy
CPT/HCPCS: 36415; 80053; 80061; 82607; 82746; 83036; 84439; 84443; 85025

== ENCOUNTER → 2021-06-27 11:02 | Outpatient (CLI) | payer MEDICARE, SELFPAY ==
--- NOTE | ~2021-06-27 | CT_ITS ---
EXAMINATION: CT abdomen pelvis wo con DATE: 06/27/2021 11:18 INDICATION: Incisional hernia without obstruction or gangrene TECHNIQUE: Computed tomography (CT) of the abdomen and pelvis was performed without intravenous contr ast. The dose-length product (DLP) was 776.80 mGy-cm. Automated exposure control and iterative recons truction technique were employed. COMPARISON: 10/21/2015 FINDINGS: A 4 mm nodule of right middle lobe is stable since the 2016 comparison, consistent with old granulomatous disease. The heart size is normal. There is calcified coronary artery atherosclerosis. A small sliding hiatal hernia is noted. The liver, spleen, gallbladder, and adrenal glands are nazia l. Punctate calcifications in the tail of the pancreas are consistent with chronic pancreatitis. Ther e are punctate nonobstructing stones of the kidneys. There is calcified atherosclerosis of the aorta and many of the other arteries. A surgical anastomosis is noted in the sigmoid colon. There are kuhn es of bilateral renal hernia repair. No pathologically enlarged abdominal or pelvic lymph nodes are i dentified. There is no free intraperitoneal gas or evidence of bowel obstruction. There is an umbilic al hernia with a 3.2 cm neck containing fat and a short segment of nonobstructed small bowel. Colonic diverticulosis is present without evidence of diverticulitis. There is severe thoracic and lumbar sp ondylosis. IMPRESSION: 1. Umbilical hernia containing fat and a short segment of nonobstructed small bowel. Reviewed, dictated and finalized at location A. [employer]SEM[employer] SUPERVISOR IMPRESSION: 1. Umbilical hernia containing fat and a short segment of nonobstructed small b owel.
== END ==
PROVIDERS: PCP Internal Medicine; Visit Provider Surgery
DX: K43.2 Incisional hernia without obstruction or gangrene (principal); R10.31 Right lower quadrant pain; K42.9 Umbilical hernia without obstruction or gangrene
CPT/HCPCS: 74176

== ENCOUNTER 2021-07-22 01:45 | Day surgery (SDC) | payer MEDICARE, SELFPAY ==
[2021-07-13 15:14] VITALS: BMI 26.9
--- NOTE | 2021-07-13 15:49 | PC.NURSE ---
Report to the Outpatient Waiting Room, entrance under the green pavilion located off [facility], at time _10:00AM__ on date _07/22/21____. OR Time: ___12:00PM . - You and your visitor will be asked a series of questions to screen for COVID 19 for your protection. - A mask is required within the hospital. Preoperative COVID Testing Requirements: No COVID Test needed if: (proof is required; if not received patient will have Rapid Test prior to entry) - Patient has received COVID Vaccine at least 14 days prior to procedure date or - Patient has positive COVID test result within last 90 days of surgery date. COVID Test needed if above criteria is not met If not COVID vaccinated a COVID test must be conducted within 72 hours of surgery and patient is asked to isolate self from time of testing until procedure. You will go to the [facility] for your COVID testing. The [facility] site is located at the corner of [address] [facility]. You will only be called if COVID results are positive and your surgeon may reschedule your elective surgery date. Patients may have clear liquids (water, carbonated beverages, clear teas, apple juice) until 3 hours prior to surgery with a maximum of 20 ounces. - No food from midnight until time of surgery - Infants may have breast milk until 4 hours before surgery, formula 6 hours prior to surgery. - Children will be allowed to drink immediately following surgery. If applicable, please bring a bottle or sippy cup to assist with drinking. Juice, water, soda, and popsicles are readily available. For infants on formula, please bring formula the day of surgery. Pacifiers are allowed. Take the following medications with a SIP of water the morning of surgery: ____AMLODIPINE, ISOSORBIDE Medications to discontinue per physician ALL VITAMINS/SUPPLEMENTS 3 DAYS PRE-OP.__OK TO CONTINUE ASPIRIN PER DR HAYES Date to take last dose 07/18/21 HIBICLEN SHOWER MORNING OF SURGERY Please no make-up, nail sinhala, hairspray, perfume, deodorant, or body powder the day of surgery. No jewelry (including any body piercings) or valuables the day of surgery, leave them at home. Please take a shower or bath the night before, or the morning of, surgery with an antibacterial soap. Wear comfortable, loose fitting clothing. Children are encouraged to wear pajamas. - Jewelry must be removed prior to entering the operating room. Rings and piercings that are not removed may be cut off. - The hospital will not accept responsibility for valuables. - Please leave all valuables, including medications, at home the day of surgery. If you are going home after surgery, a licensed test car driver must drive you home. - NO public transportation without another adult. - We recommend that an adult stay with you for 24 hours following discharge. - We also recommend that you do not drive, make important decision, drink alcoholic beverages, or take any drugs that were not prescribed by your health care provider for at least 24 hours after your discharge time. For Pediatric surgeries, we recommend two adults accompany the child home (only one inside the building at this time). One visitor will be allowed to accompany the patient into the hospital. Patients visitor will be instructed to remain with patient at all times or leave the building. We will allow the visitor to come back to the postoperative area when patient is ready. Follow any additional instructions given to you from your surgeon. Telephone instructions given to PATIENT & , KUSH and asked if any additional questions and then verbalized understanding. Patient advised to call surgeon office or pre surgery nurse liaison [phone] if any additional questions.
[2021-07-22] VITALS (12 sets, daily range): BP systolic 136–167; BP diastolic 72–102; PULSE 58–80; RESP 12–19; TEMP 36.5; O2SAT 92–100; BMI 27.8
[2021-07-22] MEDS: ACETAMINOPHEN 500 MG TABLET 1000 MG PO (10:32)
[2021-07-22] MEDS: KETOROLAC 15 MG/ML VIAL (*BKC) IV PUSH (10:32)
[2021-07-22 10:37] LABS: Glucose Point of Care 95 mg/dl (65-105)
--- NOTE | 2021-07-22 10:58 | WPDANESEPPF ---
Anes - Initial Pre Proc Eval Procedure: Operation Date: 07/22/21 12:00 Proposed Procedures p Laparoscopic Recurrent Incisional Hernia Repair with Mesh Davinci Assisted - Adria Washington DO Date/Time: 07/22/21 10:58 Surgeon: Adria Washington DO Pre Op Diagnosis: recurrent incisional hernia Patient Data Age: 76 Gender: M Height: 1.7 m Weight: 80.6 kg Last Vital Signs Temp 36.5 C 07/22/21 10:08 Pulse 72 07/22/21 10:08 Resp 18 07/22/21 10:08 BP 136/87 07/22/21 10:08 Pulse Ox 97 07/22/21 10:08 Allergies Allergy/AdvReac Type Severity Reaction Status Date / Time adhesive tape Allergy Blister Verified 07/22/21 09:56 Home Medications Medication Instructions Recorded Confirmed Type itdlstwa-ysf-hpynr acid 300 1 tablet PO DAILY #90 tablet 03/31/19 07/22/21 Rx mcg-lycopene 600 mcg-lutein 300 mcg tablet cholecalciferol (vitamin D3) 25 25 mcg PO DAILY 01/26/21 07/22/21 History mcg (1,000 unit) tablet blood sugar diagnostic #100 ea 03/02/21 06/24/21 Rx aspirin 81 mg PO DAILY 03/15/21 07/22/21 History atorvastatin 80 mg PO DAILY 03/15/21 07/22/21 History folic acid-vit B6-vit B12 2.2 1 tablet PO DAILY #90 tablet 05/05/21 07/22/21 Rx mg-25 mg-0.5 mg tablet amlodipine 5 mg tablet 5 mg PO QAM #90 tablet 07/08/21 07/22/21 Rx isosorbide mononitrate 30 mg 30 mg PO QAM #90 tablet 07/08/21 07/22/21 Rx tablet,extended release 24 hr losartan 50 mg tablet 50 mg PO QAM #90 tablet 07/08/21 07/22/21 Rx metformin 1,000 mg tablet 1,000 mg PO QAM #90 tablet 07/08/21 07/22/21 Rx Prevagen 1 tab-cap PO DAILY 07/13/21 07/22/21 History cyanocobalamin (vitamin B-12) 1,000 mcg PO DAILY 07/13/21 07/22/21 History famotidine 20 mg PO QAM 07/13/21 07/22/21 History Laboratory Tests 07/22/21 10:28 POC Capillary Glucose 95 mg/dl mg/dl (65-105) Patient hx anesthesia problems: none Family hx anesthesia problems: none Results Review: All pre-operative results and documents have been reviewed as part of the pre-operative evaluation. [facility] Past Medical History Medical History ASHD (arteriosclerotic heart disease) Benign essential HTN CAD (coronary artery disease) LAD stenosis Diaphoresis DJD (degenerative joint disease) DM2 (diabetes mellitus, type 2) Elevated PSA Encounter for Medicare annual wellness exam Encounter for routine adult health examination without abnormal findings Fatigue Follow up Grade I diastolic dysfunction Echo Hearing loss Hx of colonic polyps Hyperlipidemia Hypogonadism Iron deficiency anemia Levoscoliosis of lumbar spine Light headedness Lung nodule Microscopic hematuria MVP (mitral valve prolapse) On correction drug therapy Peripheral neuropathy Shingles Spondylosis Trochanteric bursitis, left hip Surgical History Surgical History History of bowel resection Open sigmoid colectomy and incisional hernia [place] [address] Moss History of right inguinal hernia repair Laparoscopic right inguinal hernia repair around 2004. Hx of total knee replacement Family History Family History Mother Family history of diabetes mellitus in first degree relative Diabetes mellitus Other Cancer Family history of gout Hypertension Social History Social History Smoking status: Never smoker Alcohol intake: current Substance use: never Substance use type: does not use Living arrangements: with family Additional living arrangements comments: KUSH- Additional occupation/education comments: [employer] Gender identity (if verbalized by the patient): Male Spiritual care concerns: No Anes - Eval Final PreProcedure Day of Procedure 07/22/21 10:58 Patient weight: overweight He
[2021-07-22] MEDS: LACTATED RINGERS 1,000 ML 30 ML IV CONT ×2 (11:10→14:26)
--- NOTE | 2021-07-22 11:47 | WPDHPUPDATE1 ---
History and Physical Update Update Date/Time: 07/22/21 11:47 History and Physical has been reviewed, including an updated exam of the patient. There are NO changes in the patient's condition. Risks, benefits, and alternatives have been discussed and questions answered. Patient agrees to proceed with procedure.
--- NOTE | 2021-07-22 11:47 | PM.IMHP ---
H&P: HPI History of Present Illness Date/Time: 07/22/21 11:47 Chief Complaint: Incisional hernia Narrative: 76 yo man presents for recurrent incisional hernia repair. He reports no changes since last seen in office. Review of Systems Review of Systems: All systems reviewed & are unremarkable except as noted in HPI and below Constitutional: Constitutional: Denies chills, Denies fever(s), Denies headache(s) and Denies weight loss Eyes: Eyes: Denies change in vision ENT: Denies dizziness, Denies headache(s), Denies neck mass and Denies throat swelling Cardiovascular: Cardiovascular: Denies chest pain, Denies lightheadedness and Denies dyspnea Respiratory: Respiratory: Denies cough, Denies dyspnea and Denies wheezing Gastrointestinal: Gastrointestinal: Denies abdominal pain, Denies change in bowel habits, Denies nausea and Denies vomiting Genitourinary: Genitourinary: Denies hematuria and Denies dysuria Musculoskeletal: Musculoskeletal: Reports as per HPI Integumentary/Breasts: Skin/Breast: Reports as per HPI Neurologic: Denies dizziness and Denies headache(s) Allergic/Immunologic: Allergic/Immunologic: Denies throat swelling and Denies wheezing [facility] Past Medical History Medical History ASHD (arteriosclerotic heart disease) Benign essential HTN CAD (coronary artery disease) LAD stenosis Diaphoresis DJD (degenerative joint disease) DM2 (diabetes mellitus, type 2) Elevated PSA Encounter for Medicare annual wellness exam Encounter for routine adult health examination without abnormal findings Fatigue Follow up Grade I diastolic dysfunction Echo Hearing loss Hx of colonic polyps Hyperlipidemia Hypogonadism Iron deficiency anemia Levoscoliosis of lumbar spine Light headedness Lung nodule Microscopic hematuria MVP (mitral valve prolapse) On prison drug therapy Peripheral neuropathy Shingles Spondylosis Trochanteric bursitis, left hip Surgical History Surgical History History of bowel resection Open sigmoid colectomy and incisional hernia [place] [address] Moss History of right inguinal hernia repair Laparoscopic right inguinal hernia repair around 2004. Hx of total knee replacement Family History Family History Mother Family history of diabetes mellitus in first degree relative Diabetes mellitus Other Cancer Family history of gout Hypertension Social History Social History Smoking status: Never smoker Alcohol intake: current Substance use: never Substance use type: does not use Living arrangements: with family Additional living arrangements comments: KUSH- Additional occupation/education comments: [employer] Gender identity (if verbalized by the patient): Male Spiritual care concerns: No Meds Home Medications and Allergies Home Medications Medication Instructions Recorded Confirmed Type bsmaeofr-cmv-bfdih acid 300 1 tablet PO DAILY #90 tablet 03/31/19 07/22/21 Rx mcg-lycopene 600 mcg-lutein 300 mcg tablet cholecalciferol (vitamin D3) 25 25 mcg PO DAILY 01/26/21 07/22/21 History mcg (1,000 unit) tablet blood sugar diagnostic #100 ea 03/02/21 06/24/21 Rx aspirin 81 mg PO DAILY 03/15/21 07/22/21 History atorvastatin 80 mg PO DAILY 03/15/21 07/22/21 History folic acid-vit B6-vit B12 2.2 1 tablet PO DAILY #90 tablet 05/05/21 07/22/21 Rx mg-25 mg-0.5 mg tablet amlodipine 5 mg tablet 5 mg PO QAM #90 tablet 07/08/21 07/22/21 Rx isosorbide mononitrate 30 mg 30 mg PO QAM #90 tablet 07/08/21 07/22/21 Rx tablet,extended release 24 hr losartan 50 mg tablet 50 mg PO QAM #90 tablet 07/08/21 07/22/21 Rx metformin 1,000 mg tablet 1,000 mg PO QAM #90 tablet 07/08/21 07/22/21 Rx Prevagen 1 tab-cap PO
[2021-07-22] MEDS: ceFAZolin 2 GM/D5W 50 ML 2 GM/50 ML BAG IVPB (12:02)
--- NOTE | 2021-07-22 14:20 | W.PM.PROC2 ---
Procedure Note - Detailed Date of Procedure 07/22/21 Pre-op Diagnosis recurrent incisional hernia Post-op Diagnosis Same Procedure Performed Laparoscopic Recurrent Incisional Hernia Repair with Mesh, da Carrie assisted Surgeon Adria Washington DO Anesthesia General and Local (Exparel) Indications This is a 76-year-old man who presents with a bulge and pain near his umbilicus that he has noticed over the past 2 years. This has gradually increased in size. He has a history of open sigmoid colectomy and ventral hernia repair and 2016. The hernia repair was performed primarily and no mesh was used. A CT of his abdomen and pelvis was performed and this showed evidence of a hernia near the umbilicus containing a loop of small bowel and fat. Discussions were made with the patient about treatment options and decision was made to proceed with robotic assisted laparoscopic recurrent incisional hernia repair with mesh. Findings Laparoscopic recurrent incisional hernia repair was performed. Upon inspecting the abdomen laparoscopically, there were few adhesions that had taken down to adequately visualize hernia defect. Once I was able to visualize the entire abdominal wall actually identified 2 hernias along the scar from his previous colectomy. He had a 3 cm x 3 cm hernia located near the umbilicus and this was containing some omentum and a loop of small bowel. This came down very easily with adhesiolysis. He then also had a 6 cm x 6 cm hernia defect just inferior to this. The total dimensions of the hernias together was 9 cm vertically by 6 cm wide. The decision was made to run the entire length the fascia closed and repair this using a 20 cm x [address] mesh with Echo2 positioning device. No specimens were obtained for pathology. Description of Procedure Procedure as well as risks, benefits, and alternatives were discussed with the patient. Written consent was obtained and placed in chart prior to procedure. Patient was brought back to surgical suite. He was placed supine on operating table. Time-out was done to confirm patient and procedure. He was then intubated by the anesthesia department. A bump was placed under his left hip, and the bed was flexed slightly to extend the space between his costal margin and iliac crest. His abdomen was prepped and draped in sterile fashion using chlorhexidine prep. A 5 millimeter incision was made in the left upper quadrant, and a 5 millimeter Optiview trocar was advanced through the abdominal layers under direct visualization. Once inside the abdominal cavity, carbon dioxide insufflation was used to create a pneumoperitoneum. His abdomen was inspected. An 8 millimeter incision was made in the left lower quadrant, and an 8 millimeter robotic trocar was placed under direct visualization. Another 8 millimeter incision was made in the left lateral abdomen, and an 8 millimeter robotic trocar was placed under direct visualization. Exparel was infiltrated along the lateral abdominal escamilla to perform a transversus abdominis plane block bilaterally. The 5 millimeter port was removed, the incision was extended to 12 millimeters, and a 12 millimeter robotic port was placed under direct visualization. A Luciano-Carreno cone was also used to place an 0-Vicryl simple interrupted suture at this trocar site. The robotic arms were brought up to the patient's bedside and secured to the ports. The camera and instruments were inserted, and I then moved over to the robotic console and took control of the camera and instruments. After careful thorough inspection of the abdominal cavity, I began my dissection at the hernia. The adhesions were carefully taken down using scissors with electrocautery. The falciform ligament was then also taken down for about 5 cm cephalad to allow for adequate space for the mesh placement. I then measured the hernia size. The superior hernia near the umbilicus measured about 3 cm x 3 cm and the
[2021-07-22 14:35] LABS: Glucose Point of Care 87 mg/dl (65-105)
[2021-07-22] MEDS: fentaNYL CITRATE INJ (*CRX) 100 MCG/2 ML VIAL 25 MCG IV PUSH ×6 (14:37→15:22)
--- NOTE | 2021-07-22 16:11 | SUR.PHASEI ---
1600-O2 SATURATION VARIES, PT NOT TAKING DEEP BREATHS, SPLINTING. ASSISTED TO RECLINER AND I/S TEACHING DONE. SATURATIONS IMPROVING IN UPRIGHT POSITION IN RECLINER AFTER I/S COMPLETED.
[2021-07-22] MEDS: oxyCODONE HCL (*CRX) 5 MG TAB IR PO (16:49)
== END 2021-07-22 17:26 | disposition home or self-care (01) ==
PROVIDERS: PCP Internal Medicine; Visit Provider Surgery
PROC: (CPT 49657; principal; 2021-07-22 12:00)
DX: K43.0 Incisional hernia with obstruction, without gangrene (principal); I25.10 Atherosclerotic heart disease of native coronary artery without angina pectoris; E11.42 Type 2 diabetes mellitus with diabetic polyneuropathy; I11.9 Hypertensive heart disease without heart failure; E78.5 Hyperlipidemia, unspecified; D50.9 Iron deficiency anemia, unspecified; I34.1 Nonrheumatic mitral (valve) prolapse; Z79.84 Long term (current) use of oral hypoglycemic drugs
CPT/HCPCS: 49657; S2900; 36415; 82948; 86850; 86900; 86901; 86902; 86922; A9270; C1781; C9290; J0690; J1885; J2704; J3010; J7120

== ENCOUNTER 2021-08-08 13:16 | Outpatient (CLI) | payer MEDICARE, SELFPAY ==
--- NOTE | ~2021-08-08 | CT_ITS ---
EXAMINATION:CT diagnostic chest wo con DATE: 08/08/2021 13:42 INDICATION: Solitary pulmonary nodule. TECHNIQUE: Computed tomography (CT) of the chest was performed without intravenous contrast. Automate d exposure control and iterative reconstruction technique were employed. The dose-length product (DLP ) was 204.12 mGy-cm. COMPARISON: Chest CT 07/13/2017 FINDINGS: There is mild bronchiectasis in the lungs with an inferior predominance. There is mild augusto on artifact. There is a 5 mm nodule in right middle lobe without change, likely benign. No pleural ef fusion. The heart size is normal. There are coronary artery calcifications. No pericardial effusion. There is a small sliding hiatal hernia. There is severe thoracic spondylosis. Thoracic dextroscoliosi s is noted. IMPRESSION: 1. Stable small pulmonary nodule, likely benign. Reviewed, dictated and finalized at location A.
== END 2021-08-08 13:17 | disposition home or self-care (01) ==
LOC: ANHIMG 13:20
PROVIDERS: PCP Internal Medicine; Visit Provider Internal Medicine
DX: R91.1 Solitary pulmonary nodule (principal)
CPT/HCPCS: 71250

== ENCOUNTER 2021-10-17 06:45 | Outpatient (CLI) | payer MEDICARE, SELFPAY ==
[2021-10-17 08:18] LABS: Basophils Absolute Auto 0.1 K/mm3 (0.0-0.1); Basophils Percent Auto 0.7 % (0.2-1.2); Eosinophils Absolute Auto 0.3 K/mm3 (0-0.3); Eosinophils Percent Auto 3.5 % (0-4.4); Hematocrit 36.7 % (42.0-52.0); Hemoglobin 12.5 g/dL (14.0-18.0); Immature Granulocyte Absolute 0.04 K/mm3 (0.00-0.031); Immature Granulocyte Percent A 0.5 % (0-0.5); Lymphocytes Absolute Auto 2.21 K/mm3 (0.9-3.2); Lymphocytes Percent Auto 29.6 % (18.3-44.2); Mean Corpuscular HGB Conc 34.1 g/dl (32-36); Mean Corpuscular Hemoglobin 32.1 pg (26-34); Mean Corpuscular Volume 94.3 fl (80-100); Mean Platelet Volume 11.6 fl (7.4-10.4); Monocytes Absolute Auto 0.7 K/mm3 (0.1-0.6); Monocytes Percent Auto 8.7 % (2.6-8.5); Neutrophils Absolute Auto 4.3 K/mm3 (1.3-6.7); Platelet Count Result 235 k/mm3 (150-375); Red Blood Count 3.89 M/mm3 (4.6-6.20); Red Cell Distribution Width 13.3 % (11.5-14.5); White Blood Count 7.5 K/mm3 (4.5-10.0)
[2021-10-17 08:50] LABS: Free T4 Free Thyroxine 0.97 ng/mL (0.78-2.19); Vitamin D 25 Hydroxy 67.4 ng/mL
[2021-10-17 10:18] LABS: Alanine Aminotransferase 22 U/L (6-50); Albumin Level 4.3 g/dL (3.5-5.1); Alkaline Phosphatase 93 U/L (38-126); Anion Gap 3 mmol/L (8-16); Aspartate Amino Transferase 26 U/L (17-59); Bilirubin,Total 0.9 mg/dL (0.2-1.3); Blood Urea Nitrogen 22 mg/dL (9-20); Carbon Dioxide 31 mmol/L (22-30); Chloride 105 mmol/L (98-107); Cholesterol 119 mg/dL (0-200); Estimated Glomerular Filt Rate > 60; Glucose 113 mg/dL (65-110); HDL Direct 42 mg/dL; Sodium 139 mmol/L (137-145); Triglycerides 62 mg/dL (<150)
[2021-10-17 10:28] LABS: Hemoglobin A1C 5.6 % (<5.7); LDL Cholesterol Direct 51 mg/dL
== END 2021-10-17 06:46 | disposition home or self-care (01) ==
PROVIDERS: PCP Internal Medicine; Visit Provider Internal Medicine
DX: R53.83 Other fatigue (principal); R79.89 Other specified abnormal findings of blood chemistry; M89.49 Other hypertrophic osteoarthropathy, multiple sites; I10 Essential (primary) hypertension; E78.2 Mixed hyperlipidemia; E11.9 Type 2 diabetes mellitus without complications; Z79.899 Other long term (current) drug therapy; I25.10 Atherosclerotic heart disease of native coronary artery without angina pectoris
CPT/HCPCS: 36415; 80053; 80061; 82306; 83036; 84439; 84443; 85025

== ENCOUNTER 2021-10-24 07:41 | Outpatient (CLI) | payer MEDICARE, SELFPAY ==
[2021-10-24 08:34] LABS: Iron 103 ug/dL (49-181)
[2021-10-24 08:43] LABS: Percent Iron Saturation 33 % (20-50)
== END 2021-10-24 07:42 | disposition home or self-care (01) ==
PROVIDERS: PCP Internal Medicine; Visit Provider Internal Medicine
DX: D50.9 Iron deficiency anemia, unspecified (principal)
CPT/HCPCS: 36415; 82728; 83540; 83550

== ENCOUNTER 2021-11-01 17:46 | Outpatient (CLI) | payer MEDICARE, SELFPAY ==
[2021-11-01 18:17] LABS: Basophils Percent Auto 0.3 % (0.2-1.2); Eosinophils Absolute Auto 0.3 K/mm3 (0-0.3); Eosinophils Percent Auto 2.8 % (0-4.4); Immature Granulocyte Absolute 0.03 K/mm3 (0.00-0.031); Immature Granulocyte Percent A 0.3 % (0-0.5); Lymphocytes Absolute Auto 2.32 K/mm3 (0.9-3.2); Lymphocytes Percent Auto 26.2 % (18.3-44.2); Mean Corpuscular HGB Conc 34.3 g/dl (32-36); Mean Corpuscular Hemoglobin 32.3 pg (26-34); Mean Corpuscular Volume 94.3 fl (80-100); Mean Platelet Volume 11.5 fl (7.4-10.4); Monocytes Absolute Auto 1.1 K/mm3 (0.1-0.6); Monocytes Percent Auto 12.5 % (2.6-8.5); Neutrophils Absolute Auto 5.1 K/mm3 (1.3-6.7); Neutrophils Percent Auto 57.9 % (45.5-73.1); Platelet Count Result 243 k/mm3 (150-375); Red Blood Count 3.71 M/mm3 (4.6-6.20); Red Cell Distribution Width 13.3 % (11.5-14.5); White Blood Count 8.9 K/mm3 (4.5-10.0)
== END 2021-11-01 17:47 | disposition home or self-care (01) ==
PROVIDERS: PCP Internal Medicine; Visit Provider Internal Medicine
DX: R30.0 Dysuria (principal); R35.0 Frequency of micturition; R68.83 Chills (without fever)
CPT/HCPCS: 36415; 85025

== ENCOUNTER 2021-11-02 07:34 | Outpatient (CLI) | payer MEDICARE, SELFPAY ==
[2021-11-02 08:37] LABS: Appearance Urine Cloudy (Clear); Bilirubin Urine Negative (Negative); Blood Urine 3+ (Negative); Color Urine Yellow (Yellow); Glucose Urine UA Negative (Negative); Ketones Urine Negative (Negative); Leukocyte Esterase Ur 3+ LEU/UL (Negative); Nitrate Urine Positive (Negative); Protein Urine 2+ mg/dL (Negative); Urobilinogen Urine 0.2 mg/dL (<2.0)
[2021-11-02 08:40] LABS: Bacteria Urine 2+ /hpf; Mucus Urine Few /lpf; RBC Urine >75 /hpf (0-2); WBC Clumps Urine Present /HPF; WBC Urine >75 /hpf
[2021-11-02 08:45] LABS: Add Urine Microscopic? YES
== END 2021-11-02 07:35 | disposition home or self-care (01) ==
LOC: ANHLAB 07:36
PROVIDERS: PCP Internal Medicine; Visit Provider Internal Medicine
DX: R30.0 Dysuria (principal)
CPT/HCPCS: 81001; 87077; 87086; 87186

== ENCOUNTER 2022-03-21 07:21 | Outpatient (CLI) | payer MEDICARE, SELFPAY ==
--- NOTE | ~2022-03-21 | US_ITS ---
EXAMINATION: US thyroid DATE: 03/21/2022 07:47 INDICATION: Nontoxic single thyroid nodule. TECHNIQUE: Multiple ultrasound images of the thyroid were obtained. COMPARISON: Ultrasound 09/2716 FINDINGS: The right thyroid lobe measures 4.0 x 1.5 x 1.4 cm. The left thyroid lobe measures 2.1 x 1.2 x 1.4 c m. In the right thyroid lobe, there is a 9 mm solid, hypoechoic, wider than tall nodule with ill-def ined margin without echogenic foci (TI-RADS TR4). IMPRESSION: 1. Right thyroid nodule, likely not clinically significant. No follow-up is needed. Reviewed, dictated and finalized at location A. ICAL SCRUB TECH IMPRESSION: 1. Right thyroid nodule, likely not clinically significant. No follow-up is nee ded.
== END 2022-03-21 07:22 | disposition home or self-care (01) ==
PROVIDERS: PCP Internal Medicine; Visit Provider Internal Medicine
DX: E04.1 Nontoxic single thyroid nodule (principal); R13.10 Dysphagia, unspecified
CPT/HCPCS: 76536

== ENCOUNTER 2022-05-18 06:34 | Outpatient (CLI) | payer MEDICARE, SELFPAY ==
[2022-05-18 07:20] LABS: Basophils Absolute Auto 0.1 K/mm3 (0.0-0.1); Basophils Percent Auto 0.8 % (0.2-1.2); Eosinophils Absolute Auto 0.4 K/mm3 (0-0.3); Eosinophils Percent Auto 5.1 % (0-4.4); Hematocrit 37.9 % (42.0-52.0); Immature Granulocyte Absolute 0.03 K/mm3 (0.00-0.031); Immature Granulocyte Percent A 0.4 % (0-0.5); Lymphocytes Absolute Auto 2.03 K/mm3 (0.9-3.2); Lymphocytes Percent Auto 27.3 % (18.3-44.2); Mean Corpuscular HGB Conc 34.3 g/dl (32-36); Mean Corpuscular Hemoglobin 33.3 pg (26-34); Mean Corpuscular Volume 97.2 fl (80-100); Monocytes Absolute Auto 0.7 K/mm3 (0.1-0.6); Monocytes Percent Auto 8.7 % (2.6-8.5); Neutrophils Absolute Auto 4.3 K/mm3 (1.3-6.7); Neutrophils Percent Auto 57.7 % (45.5-73.1); Platelet Count Result 271 k/mm3 (150-375); Red Cell Distribution Width 13.2 % (11.5-14.5); White Blood Count 7.4 K/mm3 (4.5-10.0)
[2022-05-18 07:56] LABS: Free T4 Free Thyroxine 1.07 ng/mL (0.78-2.19)
[2022-05-18 08:44] LABS: Alanine Aminotransferase 34 U/L (6-50); Albumin Level 4.4 g/dL (3.5-5.1); Alkaline Phosphatase 108 U/L (38-126); Anion Gap 6 mmol/L (8-16); Aspartate Amino Transferase 33 U/L (17-59); Bilirubin,Total 0.7 mg/dL (0.2-1.3); Blood Urea Nitrogen 25 mg/dL (9-20); Calcium 9.7 mg/dL (8.4-10.2); Carbon Dioxide 31 mmol/L (22-30); Chloride 106 mmol/L (98-107); Cholesterol 122 mg/dL (0-200); Estimated Glomerular Filt Rate > 60; Glucose 103 mg/dL (65-110); HDL Direct 41 mg/dL; Potassium 4.9 mmol/L (3.4-5.0); Sodium 143 mmol/L (137-145); Triglycerides 49 mg/dL (<150)
[2022-05-18 08:55] LABS: LDL Cholesterol Direct 58 mg/dL
[2022-05-18 09:15] LABS: Prostate Specific Antigen 4.5 ng/mL (< OR = 4.0)
[2022-05-18 14:14] LABS: Hemoglobin A1C 5.5 % (<5.7)
== END 2022-05-18 06:35 | disposition home or self-care (01) ==
PROVIDERS: PCP Internal Medicine; Visit Provider Internal Medicine
DX: E04.1 Nontoxic single thyroid nodule (principal); I10 Essential (primary) hypertension; Z79.899 Other long term (current) drug therapy; Z13.29 Encounter for screening for other suspected endocrine disorder; E11.9 Type 2 diabetes mellitus without complications; E78.2 Mixed hyperlipidemia; Z12.5 Encounter for screening for malignant neoplasm of prostate
CPT/HCPCS: 36415; 80053; 80061; 83036; 84153; 84439; 84443; 85025; G0103

== ENCOUNTER 2023-02-26 08:09 | Outpatient (CLI) | payer MEDICARE, SELFPAY ==
[2023-02-26 09:01] LABS: Basophils Percent Auto 0.4 % (0.2-1.2); Eosinophils Absolute Auto 0.3 K/mm3 (0-0.3); Eosinophils Percent Auto 2.5 % (0-4.4); Hematocrit 35.5 % (42.0-52.0); Hemoglobin 11.5 g/dL (14.0-18.0); Immature Granulocyte Absolute 0.06 K/mm3 (0.00-0.031); Immature Granulocyte Percent A 0.6 % (0-0.5); Lymphocytes Absolute Auto 2.37 K/mm3 (0.9-3.2); Lymphocytes Percent Auto 23.1 % (18.3-44.2); Mean Corpuscular HGB Conc 32.4 g/dl (32-36); Mean Corpuscular Hemoglobin 32.1 pg (26-34); Mean Corpuscular Volume 99.2 fl (80-100); Mean Platelet Volume 11.2 fl (7.4-10.4); Monocytes Absolute Auto 0.7 K/mm3 (0.1-0.6); Monocytes Percent Auto 6.5 % (2.6-8.5); Neutrophils Absolute Auto 6.9 K/mm3 (1.3-6.7); Neutrophils Percent Auto 66.9 % (45.5-73.1); Platelet Count Result 306 k/mm3 (150-375); Red Blood Count 3.58 M/mm3 (4.6-6.20); Red Cell Distribution Width 13.2 % (11.5-14.5); White Blood Count 10.3 K/mm3 (4.5-10.0)
[2023-02-26 09:12] LABS: Alanine Aminotransferase 31 U/L (6-50); Albumin Level 4.5 g/dL (3.5-5.1); Alkaline Phosphatase 98 U/L (38-126); Anion Gap 5 mmol/L (8-16); Aspartate Amino Transferase 35 U/L (17-59); Bilirubin,Total 0.7 mg/dL (0.2-1.3); Blood Urea Nitrogen 16 mg/dL (9-20); Calcium 10.2 mg/dL (8.4-10.2); Carbon Dioxide 30 mmol/L (22-30); Chloride 103 mmol/L (98-107); Cholesterol 134 mg/dL (0-200); Estimated Glomerular Filt Rate > 60; Glucose 104 mg/dL (65-110); HDL Direct 46 mg/dL; Potassium 4.4 mmol/L (3.4-5.0); Sodium 138 mmol/L (137-145); Triglycerides 74 mg/dL (<150)
[2023-02-26 09:23] LABS: LDL Cholesterol Direct 66 mg/dL
[2023-02-26 09:42] LABS: Prostate Specific Antigen 4.1 ng/mL (< OR = 4.0)
[2023-02-26 09:50] LABS: Appearance Urine Clear (Clear); Bilirubin Urine Negative (Negative); Blood Urine Negative (Negative); Color Urine Yellow (Yellow); Glucose Urine UA Negative (Negative); Ketones Urine Negative (Negative); Leukocyte Esterase Ur Negative LEU/UL (Negative); Nitrate Urine Negative (Negative); Protein Urine Negative (Negative); Specific Grav Ur 1.012 (1.001-1.035); Urobilinogen Urine 0.2 mg/dL (<2.0); pH Urine 6.5 (5.0-9.0)
[2023-02-26 09:50] LABS: Hemoglobin A1C 5.5 % (<5.7)
[2023-02-26 09:55] LABS: Add Urine Microscopic? NO
[2023-02-26 10:02] LABS: Free T4 Free Thyroxine 0.87 ng/mL (0.78-2.19); Vitamin D 25 Hydroxy 61.3 ng/mL
== END 2023-02-26 08:10 | disposition home or self-care (01) ==
PROVIDERS: PCP Internal Medicine; Visit Provider Internal Medicine
DX: E55.9 Vitamin D deficiency, unspecified (principal); E11.9 Type 2 diabetes mellitus without complications; E78.2 Mixed hyperlipidemia; R97.20 Elevated prostate specific antigen [PSA]; I10 Essential (primary) hypertension; E04.1 Nontoxic single thyroid nodule; Z13.29 Encounter for screening for other suspected endocrine disorder; Z79.899 Other long term (current) drug therapy
CPT/HCPCS: 36415; 80053; 80061; 81003; 82306; 83036; 84153; 84439; 84443; 84550; 85025; 85652; 86038; 86140; 86430; 86812

== ENCOUNTER 2023-02-26 16:52 | Outpatient (CLI) | payer MEDICARE, SELFPAY ==
[2023-02-26 18:15] LABS: Alanine Aminotransferase 31 U/L (6-50); Albumin Level 4.4 g/dL (3.5-5.1); Alkaline Phosphatase 93 U/L (38-126); Anion Gap 7 mmol/L (8-16); Aspartate Amino Transferase 33 U/L (17-59); Bilirubin,Total 0.5 mg/dL (0.2-1.3); Blood Urea Nitrogen 18 mg/dL (9-20); CRP 0.5 mg/dL (<1.0); Calcium 9.9 mg/dL (8.4-10.2); Carbon Dioxide 27 mmol/L (22-30); Chloride 105 mmol/L (98-107); Estimated Glomerular Filt Rate > 60; Glucose 154 mg/dL (65-110); Potassium 4.2 mmol/L (3.4-5.0); Sodium 139 mmol/L (137-145); Uric Acid 5.2 mg/dL (3.5-8.5)
[2023-02-26 18:47] LABS: Rheumatoid Factor < 12.0 IU/ML (<12)
[2023-02-26 19:21] LABS: Erythrocyte Sedimentation Rate 34 mm/hr (0-20)
[2023-02-28 18:38] LABS: HLA B27 Negative (Negative)
== END 2023-02-26 16:53 | disposition home or self-care (01) ==
PROVIDERS: PCP Internal Medicine; Visit Provider Podiatrist Foot & Ankle Surgery
DX: M10.9 Gout, unspecified (principal)
CPT/HCPCS: 36415; 80053; 84550; 85652; 86038; 86140; 86430; 86812

== ENCOUNTER 2023-03-13 14:59 | Outpatient (CLI) | payer MEDICARE, SELFPAY ==
[2023-03-17 11:48] LABS: Testosterone Total 216 ng/dL (250-1100)
== END 2023-03-13 15:00 | disposition home or self-care (01) ==
PROVIDERS: PCP Internal Medicine; Visit Provider Urology
DX: E29.1 Testicular hypofunction (principal)
CPT/HCPCS: 36415; 84403

== ENCOUNTER 2023-06-04 08:29 | Outpatient (CLI) | payer MEDICARE, SELFPAY ==
[2023-06-04 08:55] LABS: Basophils Absolute Auto 0.1 K/mm3 (0.0-0.1); Basophils Percent Auto 0.6 % (0.2-1.2); Eosinophils Absolute Auto 0.3 K/mm3 (0-0.3); Eosinophils Percent Auto 3.4 % (0-4.4); Hematocrit 39.8 % (42.0-52.0); Hemoglobin 13.1 g/dL (14.0-18.0); Immature Granulocyte Absolute 0.04 K/mm3 (0.00-0.031); Immature Granulocyte Percent A 0.4 % (0-0.5); Lymphocytes Absolute Auto 2.16 K/mm3 (0.9-3.2); Lymphocytes Percent Auto 24.2 % (18.3-44.2); Mean Corpuscular HGB Conc 32.9 g/dl (32-36); Mean Corpuscular Hemoglobin 31.6 pg (26-34); Mean Corpuscular Volume 96.1 fl (80-100); Mean Platelet Volume 10.8 fl (7.4-10.4); Monocytes Absolute Auto 0.7 K/mm3 (0.1-0.6); Monocytes Percent Auto 7.4 % (2.6-8.5); Neutrophils Absolute Auto 5.7 K/mm3 (1.3-6.7); Platelet Count Result 276 k/mm3 (150-375); Red Blood Count 4.14 M/mm3 (4.6-6.20); Red Cell Distribution Width 13.1 % (11.5-14.5); White Blood Count 8.9 K/mm3 (4.5-10.0)
[2023-06-04 09:16] LABS: Alanine Aminotransferase 25 U/L (6-50); Albumin Level 4.4 g/dL (3.5-5.1); Alkaline Phosphatase 95 U/L (38-126); Anion Gap 6 mmol/L (8-16); Aspartate Amino Transferase 29 U/L (17-59); Bilirubin,Total 0.7 mg/dL (0.2-1.3); Blood Urea Nitrogen 23 mg/dL (9-20); Calcium 10.3 mg/dL (8.4-10.2); Carbon Dioxide 29 mmol/L (22-30); Chloride 107 mmol/L (98-107); Cholesterol 124 mg/dL (0-200); Estimated Glomerular Filt Rate > 60; Glucose 111 mg/dL (65-110); HDL Direct 45 mg/dL; Potassium 4.3 mmol/L (3.4-5.0); Sodium 142 mmol/L (137-145); Triglycerides 72 mg/dL (<150)
[2023-06-04 09:27] LABS: LDL Cholesterol Direct 59 mg/dL
[2023-06-04 09:34] LABS: Hemoglobin A1C 6.1 % (<5.7)
[2023-06-04 09:59] LABS: Free T4 Free Thyroxine 0.99 ng/mL (0.78-2.19)
== END 2023-06-04 08:30 | disposition home or self-care (01) ==
PROVIDERS: PCP Internal Medicine; Visit Provider Internal Medicine
DX: E78.2 Mixed hyperlipidemia (principal); Z79.899 Other long term (current) drug therapy; Z13.29 Encounter for screening for other suspected endocrine disorder
CPT/HCPCS: 36415; 80053; 80061; 82306; 83036; 84439; 84443; 85025

== ENCOUNTER 2023-08-05 07:37 | Outpatient (CLI) | payer MEDICARE, SELFPAY ==
--- NOTE | ~2023-08-05 | CT_ITS ---
EXAMINATION: CT cervical spine wo con DATE: 08/05/2023 08:13 INDICATION: Stenosis of the cervical spinal canal. TECHNIQUE: Computed tomography (CT) of the cervical spine was performed without intravenous contrast. Automated exposure control and iterative reconstruction technique were employed. The dose-length pro duct was 403.56 mGy-cm. COMPARISON: None FINDINGS: There is kyphosis of cervical spine. There is 3 degrees dextrocurvature of cervical spine. There is mild chronic anterior wedging of C7 and T1 vertebral bodies. There is severely decreased dis c height from C3-C4 through T1-T2. There are changes of posterior fusion procedure from C2 the C6 wit h lateral mass screws. There are laminectomies from C3 to C6. The following disc levels are specifica lly discussed: C2-C3: There is mild bilateral uncovertebral joint osteoarthritis. There is no facet joint hypertroph y. There is no neural foraminal stenosis. There is no central canal stenosis. C3-C4: There is severe bilateral uncovertebral joint osteoarthritis. There is mild bilateral facet star int hypertrophy. There is mild bilateral neural foraminal stenosis. There is mild central canal steno sis with posterior decompression. C4-C5: There is severe bilateral uncovertebral joint osteoarthritis. There is mild bilateral facet star int hypertrophy. There is mild bilateral neural foraminal stenosis. There is mild central canal steno sis with posterior decompression. C5-C6: There is severe bilateral uncovertebral joint osteoarthritis. There is moderate right and mild left facet joint hypertrophy. There is moderate right and mild left neural foraminal stenosis. There is mild central canal stenosis with posterior decompression. C6-C7: There is severe bilateral uncovertebral joint osteoarthritis. There is mild bilateral facet star int hypertrophy. There is moderate right and mild left neural foraminal stenosis. There is mild centr al canal stenosis. C7-T1: There is severe bilateral uncovertebral joint osteoarthritis. There is severe bilateral facet joint osteoarthritis. There is mild bilateral neural foraminal stenosis. There is no central canal st enosis. IMPRESSION: 1. Severe cervical spondylosis. 2. Posterior fusion procedure from C2 to C6. Reviewed, dictated and finalized at location A.
== END 2023-08-05 07:38 | disposition home or self-care (01) ==
LOC: ANHIMG 07:38
PROVIDERS: PCP Internal Medicine
DX: M48.02 Spinal stenosis, cervical region (principal); M43.02 Spondylolysis, cervical region; Z98.1 Arthrodesis status
CPT/HCPCS: 72125

== ENCOUNTER 2023-10-22 07:36 | Outpatient (CLI) | payer MEDICARE, SELFPAY ==
[2023-10-22 08:07] LABS: Basophils Percent Auto 0.5 % (0.2-1.2); Eosinophils Absolute Auto 0.2 K/mm3 (0-0.3); Eosinophils Percent Auto 1.9 % (0-4.4); Hematocrit 40.6 % (42.0-52.0); Hemoglobin 13.3 g/dL (14.0-18.0); Immature Granulocyte Absolute 0.03 K/mm3 (0.00-0.031); Immature Granulocyte Percent A 0.4 % (0-0.5); Lymphocytes Absolute Auto 2.24 K/mm3 (0.9-3.2); Lymphocytes Percent Auto 27.1 % (18.3-44.2); Mean Corpuscular HGB Conc 32.8 g/dl (32-36); Mean Corpuscular Hemoglobin 31.7 pg (26-34); Mean Corpuscular Volume 96.9 fl (80-100); Mean Platelet Volume 11.1 fl (7.4-10.4); Monocytes Absolute Auto 0.7 K/mm3 (0.1-0.6); Monocytes Percent Auto 8.6 % (2.6-8.5); Neutrophils Absolute Auto 5.1 K/mm3 (1.3-6.7); Neutrophils Percent Auto 61.5 % (45.5-73.1); Platelet Count Result 259 k/mm3 (150-375); Red Blood Count 4.19 M/mm3 (4.6-6.20); Red Cell Distribution Width 13.4 % (11.5-14.5); White Blood Count 8.3 K/mm3 (4.5-10.0)
[2023-10-22 09:05] LABS: Alanine Aminotransferase 21 U/L (6-50); Albumin Level 4.3 g/dL (3.5-5.1); Alkaline Phosphatase 96 U/L (38-126); Anion Gap 8 mmol/L (4-12); Aspartate Amino Transferase 29 U/L (17-59); Bilirubin,Total 0.9 mg/dL (0.2-1.3); Blood Urea Nitrogen 29 mg/dL (9-20); Calcium 9.6 mg/dL (8.4-10.2); Carbon Dioxide 27 mmol/L (22-30); Chloride 107 mmol/L (98-107); Cholesterol 110 mg/dL (0-200); Estimated Glomerular Filt Rate > 60; Glucose 90 mg/dL (65-110); HDL Direct 41 mg/dL; Potassium 4.3 mmol/L (3.4-5.0); Sodium 142 mmol/L (137-145); Triglycerides 52 mg/dL (<150)
[2023-10-22 09:16] LABS: Hemoglobin A1C 5.7 % (<5.7); LDL Cholesterol Direct 62 mg/dL
[2023-10-24 23:02] LABS: Testosterone Total 452 ng/dL (250-1100)
== END 2023-10-22 07:37 | disposition home or self-care (01) ==
LOC: ANHLAB 07:39
PROVIDERS: PCP Internal Medicine; Visit Provider Internal Medicine
DX: Z12.5 Encounter for screening for malignant neoplasm of prostate (principal); R97.20 Elevated prostate specific antigen [PSA]; I10 Essential (primary) hypertension; E11.9 Type 2 diabetes mellitus without complications; E34.9 Endocrine disorder, unspecified; E78.2 Mixed hyperlipidemia
CPT/HCPCS: 36415; 80053; 80061; 83036; 84153; 84403; 85025; G0103

== ENCOUNTER 2024-03-05 17:07 | Outpatient (CLI) | payer MEDICARE, SELFPAY ==
[2024-03-05 17:33] LABS: Add Urine Microscopic? NO; Appearance Urine Clear (Clear); Bilirubin Urine Negative (Negative); Blood Urine Negative (Negative); Color Urine Yellow (Yellow); Glucose Urine UA 3+ mg/dL (Negative); Ketones Urine Negative (Negative); Leukocyte Esterase Ur Negative LEU/UL (Negative); Nitrate Urine Negative (Negative); Protein Urine Negative (Negative); Specific Grav Ur 1.024 (1.001-1.035); Urobilinogen Urine 0.2 mg/dL (<2.0); pH Urine 5.5 (5.0-9.0)
[2024-03-05 17:57] LABS: Alanine Aminotransferase 27 U/L (6-50); Albumin Level 4.5 g/dL (3.5-5.1); Alkaline Phosphatase 94 U/L (38-126); Anion Gap 8 mmol/L (4-12); Aspartate Amino Transferase 38 U/L (17-59); Bilirubin,Total 0.6 mg/dL (0.2-1.3); Blood Urea Nitrogen 20 mg/dL (9-20); Calcium 9.9 mg/dL (8.4-10.2); Carbon Dioxide 30 mmol/L (22-30); Chloride 103 mmol/L (98-107); Cholesterol 129 mg/dL (0-200); Estimated Glomerular Filt Rate > 60; Glucose 96 mg/dL (65-110); HDL Direct 43 mg/dL; Potassium 4.1 mmol/L (3.4-5.0); Sodium 141 mmol/L (137-145); Triglycerides 168 mg/dL (<150); Uric Acid 4.3 mg/dL (3.5-8.5)
[2024-03-05 18:09] LABS: LDL Cholesterol Direct 52 mg/dL
[2024-03-05 18:12] LABS: Free T4 Free Thyroxine 0.97 ng/mL (0.78-2.19)
[2024-03-05 18:29] LABS: Hemoglobin A1C 5.8 % (<5.7)
== END 2024-03-05 17:08 | disposition home or self-care (01) ==
LOC: ANHLAB 17:12
PROVIDERS: PCP Internal Medicine; Visit Provider Internal Medicine
DX: E78.2 Mixed hyperlipidemia (principal); I10 Essential (primary) hypertension; E11.9 Type 2 diabetes mellitus without complications; M10.9 Gout, unspecified; Z79.899 Other long term (current) drug therapy; Z13.29 Encounter for screening for other suspected endocrine disorder
CPT/HCPCS: 36415; 80053; 80061; 81003; 83036; 84439; 84443; 84550

== ENCOUNTER 2024-07-14 14:17 | Outpatient (CLI) | payer MEDICARE, SELFPAY ==
[2024-07-14 15:52] LABS: Basophils Absolute Auto 0.1 K/mm3 (0.0-0.1); Basophils Percent Auto 0.6 % (0.2-1.2); Eosinophils Absolute Auto 0.3 K/mm3 (0-0.3); Eosinophils Percent Auto 3.1 % (0-4.4); Hematocrit 40.6 % (42.0-52.0); Hemoglobin 13.4 g/dL (14.0-18.0); Immature Granulocyte Absolute 0.02 K/mm3 (0.00-0.031); Immature Granulocyte Percent A 0.2 % (0-0.5); Lymphocytes Absolute Auto 2.08 K/mm3 (0.9-3.2); Mean Corpuscular Hemoglobin 32.2 pg (26-34); Mean Corpuscular Volume 97.6 fl (80-100); Mean Platelet Volume 11.1 fl (7.4-10.4); Monocytes Absolute Auto 0.7 K/mm3 (0.1-0.6); Monocytes Percent Auto 8.9 % (2.6-8.5); Neutrophils Absolute Auto 5.2 K/mm3 (1.3-6.7); Neutrophils Percent Auto 62.2 % (45.5-73.1); Platelet Count Result 295 k/mm3 (150-375); Red Blood Count 4.16 M/mm3 (4.6-6.20); Red Cell Distribution Width 13.4 % (11.5-14.5); White Blood Count 8.3 K/mm3 (4.5-10.0)
[2024-07-14 16:05] LABS: Alanine Aminotransferase 28 U/L (6-50); Albumin Level 4.2 g/dL (3.5-5.1); Alkaline Phosphatase 94 U/L (38-126); Anion Gap 10 mmol/L (4-12); Aspartate Amino Transferase 31 U/L (17-59); Bilirubin,Total 0.6 mg/dL (0.2-1.3); Blood Urea Nitrogen 21 mg/dL (9-20); Calcium 9.6 mg/dL (8.4-10.2); Carbon Dioxide 29 mmol/L (22-30); Chloride 105 mmol/L (98-107); Cholesterol 108 mg/dL (0-200); Estimated Glomerular Filt Rate > 60; Glucose 88 mg/dL (65-110); HDL Direct 41 mg/dL; Sodium 144 mmol/L (137-145); Triglycerides 133 mg/dL (<150)
[2024-07-14 16:16] LABS: LDL Cholesterol Direct 40 mg/dL
--- OUTSIDE RECORDS SUMMARY | 2024-07-14 16:53 | XMS_ITS | Encounter Summary ---
Author Organization [facility] Address [address] [place] [address] Care Team Providers Care Visitor Services Assistant Name Role Phone Joel Graff MD Primary Care Provider Beny Mauricio MD Unavailable [phone] Encounter Details Date Type Department Care Team (Late st Contact Info) Description 11/07/2018 Hospital Follow-up Call [facility] [place] [address] Vianca Vaughn Social History Tobacco Use Types Packs/Day Years Used Date Smoking Tobacco: Never Smokeless Tobacco: Never Sex and Gender Information Value Date Recorded Sex Assigned at Not on file Legal Sex Male 7:10 PM CDT Gender Identity Not on file Sexual Orientation Not on file documented as of this encounter Functional Status * RETIRED Are you deaf or do you have serious difficulty hearing Answer Date of Assessment Author Status No 11/01/2018 6:39 PM CDT Activ e * RETIRED Are you blind or do you have serious difficulty seeing, even when wearing glasses? Answer Date of Assessment Author Status No 11/01/2018 6:39 PM CDT Activ e * Do you have serious difficulty walking or climbing stairs? Answer Date of Assessment Author Status No 11/01/2018 6:39 PM CDT Luis Ann, RN Active * Do you have difficulty dressing or bathing? Answer Date of Assessment Author Status No 11/01/2018 6:39 PM MIKET Luis Ann, RN Active * Because of a physical, mental, or emotional condition, do you have difficulty doing errands alone such as visiting a doctor's office or shopping? Answer Date of Assessment Author Status No 11/01/2018 6:39 PM CDT Luis Ann, RN Active documented as of this encounter Mental Status * Because of a physical, mental, or emotional condition, do you have serious difficulty concentrating, remembering, or making decisions? Answer Entry Date Author Status No 11/01/2018 6:39 PM CDT Luis Ann, RN Active documented in this encounter Plan of Treatment Upcoming Encounters Date Type Department Care Team (Late st Contact Info) Description 10/28/2024 8:45 AM CDT Office Visit [facility] [place] [place] [address] Jean-Paul Turner MD Three [facility]. [facility] [address] [place] [address] documented as of this encounter Visit Diagnoses Not on filedocumented in this encounter Care Teams Visitor Services Assistant Relationship Specialty Start Date End Date Joel Graff MD [address] [place] [address] PCP - General INTERNAL MEDICINE 10/30/18 Beny Mauricio MD [address] [facility] [address] [place] [id number] [place] Size Roller Operator CARDIOVASCULAR DISEASE 07/09/19 documented as of this encounter
--- OUTSIDE RECORDS SUMMARY | 2024-07-14 16:53 | XMS_ITS | Continuity of Care Document ---
Author Organization [facility] Address [address] [place] [address] [place] [address] Phone Care Team Providers Care Mud Analysis Well Logging Captain Name Role Phone Shepard OD, Rai Unavailable Unavailable Procedures Procedure Date Contact Lens Check Contact Lens Check Contact Lens Check Contact Lens Check Post-op Follow-up Visit Tax - Medical Contact Lens/es Other Type Eye Exam & Treatment Refraction Office/outpatient Visit, Est Office/outpatient Visit, New Advance Directives Directive Yes / No Effective Date File Name No Information Encounters Encounter Description Practice Location Reason(s) For Visit Diagnoses Date Provider Providers Copied on Encounter [facility], [address] [place] [address] [address], [place], [place], [id number], tel:[phone] [facility] No Information Dec-0 4-200 9 Shepard OD Rai. [address], [place], [address], [place]. tel:[phone] [facility], [address] [place] [address] [address], [place], [place], [id number], [place] tel:[phone] [facility] No Information Oct-2 9-200 9 Shepard OD Rai. [address] , [address], [place], [address], [place]. tel:[phone] [facility], [address], [place], [place], [id number], [place] tel:[phone] [facility] No Information Oct-2 2-200 9 Shepard OD Rai. [address], [place], [place], [facility], [place]. tel:[phone] [facility], [address] [place] [address] [address], [place], [place], [id number], [place] tel:[phone] [facility] No Information Oct-0 1-200 9 Shepard OD Rai. [address], [place], [place], [facility], [place]. tel:[phone] [facility], [address] [place] [address] [address], [place], [place], [id number], [place] tel:[phone] [facility] No Information Sep-2 4-200 9 Shepard OD Rai. [address], [place], [place], [facility], [place]. tel:[phone] [facility], [address] [place] [address] [address], [place], [place], [id number], [place] tel:[phone] [facility] No Information Sep-0 3-200 9 Shepard OD Rai. [address], [place], [place], [facility], [place]. tel:[phone] Office/outpat ient Visit, [facility], [address] [place] [address] [address], [place], [place], [id number], [place] tel:[phone] [facility] No Information May-2 0-200 9 Krishnasamy John. [address], [place], [facility], [place]. tel:[phone] Office/outpat ient Visit, [facility], [address], [place], [place], [id number], [place] tel:[phone] [facility] No Information 9200 8 Juju Lopez. [address] [facility] [address], [place], [address], [place]. tel:[phone] Family History Family Member Type Diagnosis Age At Onset No Information Payers Payer name Insurance type Covered republican ID Authoriza tion(s) No Information Social History Type Description Quantity Date Captured Comments Sex Male Smoking Status No Information Chief Complaint And Reason For Visit No Information Reason For Referral Reason For Referral No Information History Of Present Illness Encounter Date Complaint History Of Prese nt Illness No Information Functional Status Date Functional Assessmen t No Information Instructions Date Instruction Additional Infor mation No Information Assessments Type Assessment Date No Information Patient Care Teams Name Effective Dates (start - stop) Status Members No Information
--- OUTSIDE RECORDS SUMMARY | 2024-07-14 16:53 | XMS_ITS | Encounter Summary ---
Author Organization [facility] Address [address] [place] [address] Care Team Providers Care Cleaner Name Role Phone Joel Graff MD Primary Care Provider [phone] Beny Mauricio MD Unavailable [phone] Encounter Details Date Type Department Care Team (Late st Contact Info) Description 10/24/2021 Abstract [facility] [address] Lorna Galloway MA Social History Tobacco Use Types Packs/Day Years Used Date Smoking Tobacco: Never Smokeless Tobacco: Never Alcohol Use Standard Drinks/Week Comments Yes 0 (1 standard drink = 0.6 oz pur e alcohol) rarely AUDIT-C Answer Date Recorded Frequency of Alcohol Consumption Monthly or less 07/25/2019 Average Number of Drinks Not on file 020 Frequency of Binge Drinking Not on file 06/29 Sex and Gender Information Value Date Recorded Sex Assigned at Not on file Legal Sex Male 7:10 PM CDT Gender Identity Not on file Sexual Orientation Not on file COVID-19 Exposure Response Date Recorded In the last 10 days, have yo u been in contact with someone who was confirmed or suspected to have Coronavirus/COVID-19? Unable to assess 10/21/2021 9:23 AM CDT documented as of this encounter Functional Status [...] No 11/01/2018 6:39 PM CDT Luis Ann, DI Active * Do you have difficulty dressing or bathing? Answer Date of Assessment Author Status No 11/01/2018 6:39 PM CDT Luis Ann, RN Active * Because of [...] CDT Office Visit [facility], [address] [address] Jean-Paul Turner MD Three [facility]. [address] [id number] documented as of this encounter Procedures Procedure Name Priority Date/Time Associated Diagnosis Comments COMPREHENSIVE METABOLIC PANEL Routine 05/18/2022 LIPID PANEL Routine 05/18/2022 CBC, MANUAL DIFF Routine 05/18/2022 THYROXINE, FREE (FT4) Routine 05/18/2022 THYROID STIM HORMONE TSH Routine 05/18/2022 CBC, MANUAL DIFF Routine 11/01/2021 COMPREHENSIVE METABOLIC PANEL Routine 10/17/2021 LIPID PANEL Routine 10/17/2021 CBC, MANUAL DIFF Routine 10/17/2021 THYROXINE, FREE (FT4) Routine 10/17/2021 THYROID STIM HORMONE TSH Routine 10/17/2021 CBC (OUTSIDE LAB) Routine 09/19/2021 COMPREHENSIVE METABOLIC PANEL Routine 09/19/2021 LIPID PANEL Routine 09/19/2021 HEMOGLOBIN, GLYCOSYLATED Routine 09/19/2021 THYROID STIM HORMONE TSH Routine 09/19/2021 VITAMIN D, 25 OH Routine 09/19/2021 documented in this encounter Results * COMPREHENSIVE METABOLIC PANEL (05/18/2022) Pathologist [facility] SODIUM S/P/B 143 GLUCOSE 103 mg/dL AST 33 BUN 25 CREATININE S/P/B 1.10 0.7 - 1.3 CALCIUM S/P/B 9.7 POTASSIUM S/P/B 4.9 CHLORIDE S/P/B 106 ALT 34 GFR ESTIMATE >60 Narrative Resulting Agency Comment Default History Genericprovider LABORATORY Final Result * LIPID PANEL (05/18/2022) Pathologist [facility] CHOLESTEROL 122 TRIGLYCERIDES 49 HDL 41 DIRECT LDL 58 Narrative Resulting Agency Comment Default History Genericprovider LABORATORY Final Result * CBC, MANUAL DIFF (05/18/2022) Pathologist [facility] WBC 7.4 HGB 13.0 HCT 37.9 PLT 271 Narrative Resulting Agency Comment Default History Genericprovider LABORATORY Final Result * THYROXINE, FREE (FT4) (05/18/2022) Pathologist [facility] FREE T4 1.07 Narrative Resulting Agency Comment Default History Genericprovider LABORATORY Final Result * THYROID STIM HORMONE, TSH (05/18/2022) Pathologist [facility] TSH 2.440 Narrative Resulting Agency Comment Result [facility] History Genericprovider LABORATORY Final Result * CBC, MANUAL DIFF (11/01/2021) [facility] WBC 8.9 HGB 12.0 HCT 35.0 PLT 243 Narrative Resulting Agency Comment Result [facility] Genericprovider LABORATORY Final Result * COMPREHENSIVE METABOLIC PANEL (10/17/2021) Pathologist [facility] SODIUM S/P/B 139 GLUCOSE 113 mg/dL AST 26 BUN 22 CREATININE S/P/B 1.0 0.7 - 1.3 CALCIUM S/P/B 9.0 POTASSIUM S/P/B 4.0 CHLORIDE S/P/B 106 ALT 22 GFR ESTIMATE >60 Narrative Resulting Agency Comment Result [facility] Genericprovider LABORATORY Final Result * LIPID PANEL (10/17/2021) Pathologist [facility] CHOLESTEROL 119 TRIGLYCERIDES 62 HDL 42 LDL (CALCULATED) 51 Narrative Resulting Agency Comment Result [facility] Genericprovider LABORATORY Final Result * CBC, MANUAL DIFF (10/17/2021) [facility] WBC 7.6 HGB 12.5 HCT 36.7 PLT 235 Narrative Resulting Agency Comment Result [facility] Genericprovider LABORATORY Final Result * THYROXINE, FREE (FT4) (10/17/2021) [facility] FREE T4 0.97 Narrative Resulting Agency Comment Result [facility] Default History Genericprovider LABORATORY Final Result * THYROID STIM HORMONE, TSH (10/17/2021) Pathologist [facility] TSH 2.320 Narrative Resulting Agency Comment Result [facility] Genericprovider LABORATORY Final Result * HEMOGLOBIN, GLYCOSYLATED (09/19/2021) [facility] HGB A1C 6.0 % 09/19/2021 us Doc [facility] LABORATORY Final Result * CBC (OUTSIDE LAB) (09/19/2021) Pathologist [facility] WBC 9.1 HGB 12.8 HCT 37.9 PLT 270 09/19/2021 us Doc [facility] Abstract LAB-OUTSIDE/ABSTRACTED Final Result * THYROID STIM HORMONE, TSH (09/19/2021) Pathologist [facility] TSH 2.340 09/19/2021 us Doc [facility] LABORATORY Final Result * VITAMIN D, 25 OH (09/19/2021) Pathologist [facility] VITAMIN D 25 HYDROXY S/P/B 60.8 09/19/2021 us Doc [facility] LABORATORY Final Result * LIPID PANEL (09/19/2021) [facility] CHOLESTEROL 117 HDL 42 TRIGLYCERIDES 70 LDL (CALCULATED) 61 09/19/2021 us Doc [facility] LABORATORY Final Result * COMPREHENSIVE METABOLIC PANEL (09/19/2021) Pathologist [facility] SODIUM S/P/B 140 POTASSIUM S/P/B 3.6 CO2 26 CHLORIDE S/P/B 104 GLUCOSE 118 mg/dL CALCIUM S/P/B 10.0 BUN 17 CREATININE S/P/B 1.02 0.7 - 1.3 EGFR NON-AFR. AMER. 77.1 <=90 ALKALINE PHOSPHATASE S/P/B 111 ALT 26 AST 25 BILIRUBIN TOTAL S/P/B 1.2 ALBUMIN S/P/B 4.5 3.5 - 5.0 TOTAL PROTEIN S/P/B 7.4 09/19/2021 us Doc [facility] LABORATORY Final Result documented in this encounter Visit Diagnoses Not on filedocumented in this encounter Care Teams Cleaner Relationship Specialty Start Date End Date Joel Graff MD [address] [place] [address] PCP - General INTERNAL MEDICINE 10/30/18 Beny Mauricio MD [address] [facility] [address] [place] [address] [place] [employer] Mixer Operator CARDIOVASCULAR DISEASE 07/09/19 documented as of this encounter
--- OUTSIDE RECORDS SUMMARY | 2024-07-14 16:53 | XMS_ITS | Referral Summary ---
Author Organization [facility] Address [address] [place] [address] Care Team Providers Care Rubber Turner Name Role Phone Joel Graff MD Primary Care Provider [phone] Fred Staples Unavailable [phone] Bertin Kelley MD PhD Unavailable [phone] Allergies Active Allergy Reactions Criticality Noted Date Comments Adhesive Rash Medium 07/25/2019 Medications amLODIPine (NORVASC) 5 mg tabletIndication s:hypertension Take 1 tablet (5 mg total) by mouth every morning 3 Active atorvastatin (LIPITOR) 80 mg tabletIndication s:hyperlipidemia Take 1 tablet (80 mg total) by mouth bone worker before breakfast 3 Active Folplex 2.2 2.2-25-0.5 mg tabletIndication s:Vitamin Deficiency Prevention Take 1 tablet by mouth bone worker before breakfast 3 Active famotidine (PEPCID) 20 mg tabletIndication s:Heartburn Prevention Take 1 tablet (20 mg total) by mouth bone worker before breakfast 3 Active isosorbide mononitrate ER (IMDUR) 30 mg 24 hr tabletIndication s:prevention of anginal pain in coronary artery disease Take 1 tablet (30 mg total) by mouth bone worker before breakfast 3 Active losartan (COZAAR) 50 mg tabletIndication s:hypertension Take 1 tablet (50 mg total) by mouth bone worker before breakfast 3 Active metFORMIN (GLUCOPHAGE) 1,000 mg tabletIndication s:type 2 diabetes mellitus Take 1 tablet (1,000 mg total) by mouth every morning 3 Active cholecalciferol, vitamin D3, 1,000 unit tablet,chewableI ndications:Preve ntion of Vitamin D Deficiency Take 1 tablet/chew tab by mouth bone worker before breakfast Active UNABLE TO FINDIndications: supplement Take 1 each by mouth bone worker before breakfast Med Name: Prevagen Active vitamin b complex tabletIndication s:Vitamin Deficiency Prevention Take 1 tablet by mouth bone worker before breakfast Active docusate sodium (COLACE) 100 mg capsuleIndicatio ns:constipation Take 1 capsule (100 mg total) by mouth 2 (two) times a day 60 capsule 3 Active tamsulosin (FLOMAX) 0.4 mg extended release capsule Take 1 capsule (0.4 mg total) by mouth daily with dinner 30 capsule 3 Active cyclobenzaprine (FLEXERIL) 5 mg tablet Take 1 tablet (5 mg total) by mouth every 8 (eight) hours as needed for muscle spasms 30 tablet 3 Active traMADoL (ULTRAM) 50 mg tablet Take 1 tablet (50 mg total) by mouth every 6 (six) hours as needed for pain for up to 10 days 40 tablet 3 Active Farxiga 10 mg tablet 3 Active empagliflozin (JARDIANCE) 25 mg tablet 0.5 tablets (12.5 mg total) 3 Active methylPREDNISolo ne (MEDROL DOSEPACK) 4 mg Dosepack 4 Active doxycycline hyclate 100 mg capsule Take 1 tablet/capsule (100 mg total) by mouth 2 (two) times a day 4 Active colchicine (COLCRYS) 0.6 mg tablet Take 1 tablet (0.6 mg total) by mouth 3 (three) times a day PRN 4 Active aspirin 81 mg enteric coated tablet Take 1 tablet (81 mg total) by mouth 0 Active Active Problems Problem Noted Date Diagnosed Date Exposure to potentially hazardous substance 11/29 Chronic back pain greater than 3 months duration 03/08/2023 Depressive disorder 03/08/2023 Diabetic neuropathy 03/08/2023 Gastroesophageal reflux disease without esophagi tis 03/08/2023 High prostate specific antigen (PSA) 03/08/2023 Overview (03/08/2023): Mar 07, 2021 Entered By: LORAINE RUTLEDGE Comment: neg biopsy dec 2020 - [facility] Chronic post-traumatic stress disorder (PTSD) Spinal stenosis of lumbar region 03/08/2023 Testicular hypofunction 03/08/2023 Tremor 03/08/2023 Vitamin D3 deficiency 03/08/2023 Cervical disc disorder with myelopathy of mid-cervical region 12/26/2022 Coronary artery disease of n ative artery of [place] heart with stable angina pectoris 07/25/2019 09/20/2022 NSTEMI (non-ST elevated myocardial infarction) 0 11/01/2018 09/20/2022 [facility] 10/30/2018 09/20/2022 Overview (09/20/2022): Last Assessment & Plan: Acute, stable Found to have frequent PVCs in PCP office. [facility] tele[facility] Known mitral valve prolapse Chest pain 10/30/2018 09/20/2022 Overview (09/20/2022): Last Assessment & Plan: Acute, resolved. Positive stress test. Heart score: 5 - monitor on telemetry - cont home lipitor and antihypertensives - Tylenol prn for mild pain, nitrostat PRN - continue ASA 81 mg daily - cardiology consulted, cath tomorrow Diabetes mellitus, type 2 10/30/20182022 Overview (09/20/2022): Last Assessment & Plan: Chronic, A1C 6.3 - continue home metformin Essential hypertension 10/30/2018 Overview (09/20/2022): Last Assessment & Plan: Chronic, uncontrolled Found to be hypertensive in ED above goal (<140/90 due to DM2 history) -cont home cozaar 50mg - hold amlodipine prior to procedure Hyperlipidemia 10/30/2018 09/20/2022 Overview (09/20/2022): Last Assessment & Plan: Cont home lipitor 20mg Immunizations Immunization Administration Dates Next Due Influenza, Quad, Adjuvantate d, Intramuscular 01/21/2022,12/19/2020 Influenza, Quadrivalent, Hig h Dose, Preservative Free, Intrr 12/28/2019 Influenza, Trivalent, Adjuva nted, Intramuscular 02/10/2017 Influenza, Trivalent, High D ose, Split, Preservative Free, Intramuscular 01/26/2019,02/03/2018,01/29/2016,02/06 Influenza, Trivalent, IM (MDV) 01/31/2013 Influenza, Unspecified 01/29/2020,2018,01/27/2016,01/28,01/18/2014,03/09/2012 Pfizer SARS-CoV-2 Monovalent Vaccination (12+ Yrs) PURPLE 06/14/2020,05/23/2020 Pneumococcal Conjugate PCV 13 07/19/2015, 015 Pneumococcal Polysaccharide PPV23 02/10/2017, Tdap 02/26/2022,03/15/2015 ZOSTER LIVE 06/03/2018,03/15/2015 Social History Tobacco Use Types Packs/Day Years Used Date Smoking Tobacco: Never Smokeless Tobacco: Never Tobacco Cessation:Counseling Given: Not Answered AUDIT-C Answer Date Recorded Q1: How often do you have a drink containing alcohol? Never 12/20/2023 Q2: How many drinks containi ng alcohol do you have on a typical day when you are drinking? Patient does not drink Q3: How often do you have si x or more drinks on one occasion? Never 12/20/2023 Personal Safety Answer Date Recorded Have you ever been in or are you currently in a harmful physical or emotional relationship or is someone making you feel afraid or unsafe? 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[employer]IN Gender Identity Not on file Sexual Orientation Not on file Occupation Industry Job Start Date Job End Date Still Operator [employer] Not on file Not on file Not on file Last Filed Vital Signs Vital Sign Reading Time Taken Comments Blood Pressure 157/77 01/30/2024 8:21 AM CDT Pulse 66 01/30/2024 8:21 AM CDT Temperature 36.7 C (98.1 F) 01/30/2024 7:52 AM CDT Respiratory Rate 18 01/30/2024 8:21 AM CDT Oxygen Saturation 98% 01/30/2024 8:21 AM CDT Inhaled Oxygen Concentration - - Weight 76.2 kg (168 lb) 12/20/2023 1:11 PM CDT Height 165.1 cm (5' 5 ) 12/20/2023 1:11 PM CDT Body Mass Index 27.96 12/20/2023 1:11 PM CDT Plan of Treatment Not on file Medical Devices Implanted Type Area Recorder Gravity Prospecting Device Identifier Shelf Expiration Date Model / Serial / Lot Rt Total Knee Arthroplasty Knee [employer] Allograft Bone Putty 2.5cc 700-025 - [id number] Implanted:Qty: 1 on 01/24/2023 by Bertin Kelley MD PhD at [facility] N/A: Spine Cervical [employer] [id number] 03/29/2025 700-025 / / [id number] [employer] Canpac Nonpurge Frozen Graft 50cc Bone [id number] - [id number] - [id number] Implanted:Qty: 1 on 01/24/2023 by Bertin Kelley MD PhD at [facility] N/A: Spine Cervical [employer] 10/16/2027 [id number] / [id number] / [employer] Virage 3.5mm 14mm Polyaxial Spine Screw Bone Nonsterile 07.20992.007 - [id number] Implanted:Qty: 8 on 01/24/2023 by Bertin Kelley MD PhD at [facility] N/A: Spine Cervical [employer] [id number] 07 / / [employer] Virage 4mm 28mm Self Tap Polyaxial Friction Fit Spine Screw Bone 07.98057.064 - [id number] Implanted:Qty: 2 on 01/24/2023 by Bertin Kelley MD PhD at [facility] N/A: Spine Cervical [employer] .[id number] 64 / / [employer] Virage 3.5mm 70mm Branden Spinal Titanium Nonsterile .51235.007 - [id number] Implanted:Qty: 2 on 01/24/2023 by Bertin Kelley MD PhD at [facility] N/A: Spine Cervical [employer] .[id number] 07 / / [employer] Virage Closure Top Lid Sterilization Nonsterile Disposable Screw 28.001 - [id number] Implanted:Qty: 10 on 01/24/2023 by Bertin Kelley MD PhD at [facility] N/A: Spine Cervical [employer] 28.0 01 / / Procedures Procedure Name Priority Date/Time Associated Diagnosis Comments EGFR Routine 01/15/2023 3:16 PM CDT Cervical disc disorder with myelopathy of mid-cervical region POCT HEMOGLOBIN A1C Routine 01/15/2023 2 :26 PM CDT from Last 3 Months or Most Recently Relevant to Health Maintenance Results * (ABNORMAL) eGFR (01/15/2023 3:16 PM CDT) eGFR 78(L) 90 - 130 mL/min/1. 73 m2 [facility] Comment: Interpretive Data Reference Interval Normal >/= 90 mL/min/1.73m2 Mildly decreased* 60 - 89 mL/min/1.73m2 Mildly to moderately decreased 45 - 59 mL/min/1.73m2 Moderately to severely decreased 30 - 44 mL/min/1.73m2 Severely decreased 15 - 29 mL/min/1.73m2 Kidney Failure < 15 mL/min/1.73m2 *Relative to young adult level Estimated glomerular filtration rate is determined by the 2020 CKD-EPI equation recommended by the National Kidney Foundation (A Unifying Approach to GFR Estimation: Recommendations of the NKF-ASK Task Force on Reassessing the Inclusion of Race in Diagnosing Kidney Disease, JASN 202). The CKD-EPI equation should not be used for patients with unstable renal function and has not been validated in children and those over 70. Current interpretive data was last reviewed 2021. Blood 01/15/2023 3:16 PM CDT 01/15/2023 4:21 PM CDT Bertin Kelley MD PhD LAB BLOOD ORDERABLES Jennifer l Result Performing Organization Address [facility] de Phone Number [facility] [place] [address] * POCT hemoglobin A1c (01/15/2023 2:26 PM CDT) [facility] Hgb A1C, POC 5.2 4.0 - 5.6 % [facility] Est Average Gluc POC 103 mg/dL [facility] Comment: The ADA recommends reporting an estimated Average Glucose (eAG) with all Hemoglobin A1c results using the equation derived from a study of 507 normal and diabetic adults. Minority populations were underrepresented and children were not included. (Diabetes Care 31:7926-6918, 2008). The eAG is not equivalent to a fasting glucose. Blood 01/15/2023 2:26 PM CDT 01/15/2023 2:26 PM CDT Bertin Kelley MD PhD POINT OF CARE TEST ORDERA BLES Final Result Performing Organization Address [facility] Co de Phone Number [facility] [place] [address] from Last 3 Months or Most Recently Relevant to Health Maintenance Insurance MEDICARE BLUE CROSS MEDICARE SUPPLEMENT MEDICARE [facility] Advance Directives For more information, please contact: [phone] Documents on File Type Date Recorded Patient Manager Animation Expl anation ADVANCE DIRECTIVE 01/18/2023 11:56 PM PHIL R OF DIE TRIMMER[employer] * Full Code (Latest Code Status on File) Date Activated Date Inactivated Comments 01/24/2023 7:10 PM 01/26/2023 7:31 PM Care Teams Rubber Turner Relationship Specialty Start Date End Date Joel Graff MD [address] [place] [address] PCP - General Internal Medicine 08/14/22 Fred Staples PA [address] [place] [address] Physician Jig And Fixture Maker Neurosurgery 01/14/24 Bertin Kelley MD PhD [id number] [facility] [place] [address] Consulting Physician Neurosurgery 01/14/24
--- OUTSIDE RECORDS SUMMARY | 2024-07-14 16:53 | XMS_ITS | Continuity of Care Document ---
Author Name [facility] Organization [facility] Care Team Providers Care Stripper Soft Plastic Name Role Phone [facility] Unavailable Unavailable Problems Combined list of problems from Department of Defense and Veterans Affairs facilities. It does not include entries that were removed or entered in error. Problem Status Onset Date Problem Type Date of Resolution Comments Source Benign essential hypertension Active Condition [facility] CAD - Coronary Artery Disease ([facility] [id number]) Active Condition Feb 22, 2019 Entered By: LAURA MANLEY Comment: 10/2018 Positive stress test while inpatient at [facility]. Cardiac cath showed 90% blockage of distal LAD. No stent placement. Medical management. [facility] Chronic back pain greater than three months duration Active Condition [facility] Chronic Post-Traumatic Stress Disorder ([facility] [id number]) Active Condition [facility] Deficiency of vitamin D3 Active Condition [facility] Depression ([facility] [id number]) Active Condition [facility] Diabetic neuropathy Active Condition [facility] Elevated PSA ([facility] [id number]) Active Condition Mar 07, 2021 Entered By: LORAINE RUTLEDGE Comment: neg biopsy dec 2020 - [facility] Exposure to potentially hazardous substance Active Condition [facility] Gastroesophageal reflux disease without esophagitis Active Condition [facility] H/O: surgery Active Condition September 12, 2021 Entered By: LORAINE RUTLEDGE Comment: Lft thyroidectomy ( benign) 02/2021,; ventral hernia repair (mesh) 06/2021Feb 2023 Entered By: LORAINE RUTLEDGE Comment: c-spine fusion 12/2022 [facility] History of Polyp of Colon ([facility] [id number]) Active Condition Mar 07, 2021 Entered By: LORAINE RUTLEDGE Comment: scope 06/16/2019- polyp [facility] Spinal stenosis of lumbar region Active Condition [facility] Testicular hypofunction Active Condition Jun 14, 2023 Entered By: LORAINE RUTLEDGE Comment: androgel per NON [facility] u[facility] Tremor Active Condition [facility] Type 2 diabetes mellitus without complication Active Condition [facility] Diagnosis: ICD-10-CM E29.1 Testicular hypofunction Active Diagnosis [facility] Diagnosis: ICD-10-CM H90.3 Sensorineural hearing loss, bilateral Active Diagnosis [facility] Diagnosis: ICD-10-CM F43.12 Post-traumatic stress disorder, chronic Active Diagnosis [facility] Diagnosis: ICD-10-CM E11.9 Type 2 diabetes mellitus without complications Active Diagnosis [facility] Medications Combined list of outpatient medications from Department of Defense and [facility] Affairs facilities.Medications provided include 1) outpatient medications from the last 15 months, and 2) patient-reported medications. Medication Details Route Status Patient Instructions Prescription Expires Prescription Number Last Dispense Date Ordering Provider Order Date Order Qty Source ACCU-CHEK KARRI PLUS (GLUCOSE) TEST STRIP USE 1 STRIP FOR BLOOD TEST TWO TIMES PER WEEK SUBCUT ANEOUS ACTIVE Mau ELMORE 2016 [facility] AL [place] 400MG/MG [place] 400MG/SIMET HICONE 40MG/5ML LIQUID(360M L) TAKE 30 ML BY MOUTH PRN ORAL ACTIVE PROUHET,R SIENNA M 2018 [facility] AMLODIPINE BESYLATE 5MG TAB TAKE ONE TABLET BY MOUTH ONCE A DAY ORAL ACTIVE PROUHET,R SIENNA M 2018 [facility] ASPIRIN 81MG TAB,EC TAKE ONE TABLET BY MOUTH ONCE A DAY ORAL ACTIVE RUTLEDGE,A RMIDA A 2019 [facility] ATORVASTATI N CA 80MG TAB TAKE ONE TABLET BY MOUTH EVERY EVENING ORAL ACTIVE BARBRA OLIVARES 2021 [facility] CHOLECALCIF JACINTO 25MCG (1,000UNIT) TAB TAKE ONE TABLET BY MOUTH ONCE A DAY ORAL ACTIVE Mau ELMORE 2017 [facility] DIVANSELMOIO N CYANOCOBALA MIN 500MCG TAB TAKE FIVE TABLETS BY MOUTH ONCE A DAY ORAL ACTIVE PROUHET,R SIENNA M 2018 [facility] DICLOFENAC NA 1% GEL,TOP APPLY 2 GM TO AFFECTED AREA(S) FOUR TIMES A DAY NEEDED FOR OSTEOART HRITIS DO NOT EXCEED MORE THAN 16 GRAMS DAILY TO ANY LOWER EXTREMIT Y JOINT. NOT MORE THAN 8 GRAMS DAILY TO ANY UPPER EXTREMIT Y JOINT. MAX 32GM/DAY OVER ALL JOINTS. (MEASURE DOSE WITH RULER ATTACHED INSIDE BOX) TOPICA L 09/12/2023 [id number] RUTLEDGE,A RMIDA A 2022 200 [facility] EMPAGLIFLOZ IN 25MG TAB TAKE ONE-HALF TABLET BY MOUTH ONCE A DAY FOR DIABETES ORAL ACTIVE 01/31/2025 [id number] RUTLEDGE,A RMIDA A 2023 45 [facility] EMPAGLIFLOZ IN 25MG TAB TAKE ONE-HALF TABLET BY MOUTH ONCE A DAY FOR DIABETES ORAL DISCONT INUED 01/30/2024 [id number] RUTLEDGE,A RMIDA A 2022 45 [facility] FAMOTIDINE 20MG TAB TAKE ONE TABLET BY MOUTH TWICE A DAY ORAL ACTIVE PROUHET,R SIENNA M 2018 [facility] FAMOTIDINE 20MG TAB TAKE ONE TABLET BY MOUTH ONCE A DAY ORAL ACTIVE PROUHET,R SIENNA M 2018 [facility] FISH OIL 1000MG (500MG DHA/EPA) CAP,ORAL TAKE 2 CAPSULES BY MOUTH ONCE A DAY ORAL ACTIVE PROUHET,R SIENNA M 2018 [facility] FLUTICASONE PROPIONATE 50MCG/SPRAY SOLN,NASAL, 16GM INSTILL 1 SPRAY IN EACH NOSTRIL ONCE A DAY NEEDED NASAL ACTIVE PROUHET,R SIENNA M 2018 [facility] ISOSORBIDE MONONITRATE TAB,SA TAKE BY MOUTH ONCE A DAY ORAL ACTIVE PROUHETJeff M 2018 [facility] LOSARTAN POTASSIUM 100MG TAB TAKE ONE-HALF TABLET BY MOUTH ONCE A DAY ORAL ACTIVE Mau ELMORE 2016 [facility] MECLIZINE HCL 25MG TAB,CHEWABL E CHEW AND SWALLOW ONE TABLET BY MOUTH THREE TIMES A DAY NEEDED FOR VERTIGO CHEWABLE TABLETS MAY BE CHEWED OR SWALLOWE D WHOLE. MAY CAUSE DROWSINE SS. ORAL ACTIVE 01/21/2025 [id number] RUTLEDGE,A RMIDA A 2023 60 [facility] METFORMIN HCL 1000MG TAB TAKE ONE-HALF TABLET BY MOUTH TWICE A DAY WITH MEALS ORAL ACTIVE Mau LEMORE 2016 [facility] MULTIVITAMI NS CAP/TAB TAKE ONE TABLET BY MOUTH ONCE A DAY ORAL ACTIVE PROUHET,Jeff EL M 2018 [facility] NITROGLYCER IN 0.4MG TAB,SUBLING UAL DISSOLVE ONE TABLET UNDER THE TONGUE PRN SUBLIN GUAL ACTIVE PROUHET,R SIENNA M 2018 [facility] TESTOSTERON E 1.62% 20.25MG/PUM P GEL,TOP APPLY 2 PUMPS (40.5MG) TO AFFECTED AREA(S) ONCE A DAY FOR LOW TESTOSTE KOFFI APPLY TO CLEAN DRY SKIN OF UPPER ARMS OR UPPER SHOULDER ONLY TOPICA L ACTIVE 01/04/2025 [id number] KAMINI HU E 2024 1 [facility] TESTOSTERON E 1.62% 20.25MG/PUM P GEL,TOP APPLY 2 PUMPS (40.5MG) TO AFFECTED AREA(S) ONCE A DAY FOR LOW TESTOSTE KOFFI APPLY TO CLEAN DRY SKIN OF UPPER ARMS OR UPPER SHOULDER ONLY TOPICA L DISCONT INUED BY PROVIDE R 08/20/2024 [id number] KAMINI HU E 2023 1 [facility] TESTOSTERON E 1.62% 20.25MG/PUM P GEL,TOP APPLY 2 PUMPS (40.5MG) TO AFFECTED AREA(S) ONCE A DAY FOR LOW TESTOSTE KOFFI (APPLY TO CLEAN DRY SKIN OF UPPER ARMS OR UPPER SHOULDER ONLY) FOR HORMONE SUPPLEME NTATION. HALEY Frost 09/27/2023 [id number] WALTER JIMENEZ 2022 1 [facility] Immunizations Combined list of available immunizations from the Department of Defense and Veterans Affairs facilities. Immunization Series Date Given Administered By Site Reaction Lot Number CVX Code Drug Store Operations Manager Status Comments Source COVID-19 ([employer]), MRNA, LNP-S, PF, LIYA-SUCROSE, 30 MCG/0.3 ML (AGES 12+ YEARS) 5 2023 309 complet [facility] ([facility]), MRNA, LNP-S, PF, LIYA-SUCROSE, 30 MCG/0.3 ML (AGES 12+ YEARS) 4 2022 309 complet ed [facility] RSV, BIVALENT, PROTEIN SUBUNIT RSVPREF, DILUENT RECONSTITUTED , 0.5 ML, PF 1 2022 305 complet [facility] INFLUENZA, HIGH-DOSE, QUADRIVALENT 2022 197 complet [facility] N TDAP 1 2021 115 complet [facility] COVID-19 ([facility]), MRNA, LNP-S, BIVALENT, PF, 30 MCG/0.3 ML DOSE 3 2021 300 complet [facility] N INFLUENZA VACCINE, QUADRIVALENT, ADJUVANTED 2021 205 complet [facility] COVID-19 ([employer]), MRNA, LNP-S, PF, 30 MCG/0.3 ML DOSE, LIYA-SUCROSE (AGES 12+ YEARS) 2 2021 217 complet [facility] DIVIS N COVID-19 ([employer]), MRNA, LNP-S, PF, 30 MCG/0.3 ML DOSE 1 2020 208 complet ed [facility] INFLUENZA VACCINE, QUADRIVALENT, ADJUVANTED 2020 205 complet ed [facility] COVID-19 ([facility]), MRNA, LNP-S, PF, 30 MCG/0.3 ML DOSE 2 2020 208 complet ed PFR; [id number]; 1 [facility] N COVID-19 ([employer]), MRNA, LNP-S, PF, 30 MCG/0.3 ML DOSE 1 2020 208 complet ed PFR; [id number]; 1 [facility] INFLUENZA, UNSPECIFIED FORMULATION 2019 88 complet ed [facility] INFLUENZA, HIGH-DOSE, QUADRIVALENT 2019 197 complet ed [facility] INFLUENZA, UNSPECIFIED FORMULATION 2018 88 complet ed per [facility] INFLUENZA, HIGH DOSE SEASONAL 8 2018 135 complet ed [facility] N ZOSTER LIVE 1 2018 121 complet ed [facility] INFLUENZA, HIGH DOSE SEASONAL 7 2017 135 complet ed [facility] INFLUENZA, TRIVALENT, ADJUVANTED 6 2016 168 complet ed [facility] N PNEUMOCOCCAL POLYSACCHARID E PPV23 2 2016 33 complet ed [facility] PNEUMOCOCCAL POLYSACCHARID E PPV23 2016 33 complet ed [facility] INFLUENZA, HIGH DOSE SEASONAL 5 2015 135 complet ed [facility] INFLUENZA, UNSPECIFIED FORMULATION 2015 88 complet ed [facility] PNEUMOCOCCAL CONJUGATE PCV 13 2015 133 complet ed [facility] N TDAP 2014 115 complet ed Left Deltoid [facility] ZOSTER LIVE 2014 121 complet ed [facility] INFLUENZA, HIGH DOSE SEASONAL 4 2014 135 complet ed [facility] PNEUMOCOCCAL CONJUGATE PCV 13 1 2014 133 complet ed [facility] INFLUENZA, UNSPECIFIED FORMULATION 2014 88 complet ed [facility] INFLUENZA, UNSPECIFIED FORMULATION 3 2013 88 complet ed [facility] INFLUENZA, SEASONAL, INJECTABLE 2 2012 141 complet ed [facility] INFLUENZA, UNSPECIFIED FORMULATION 1 2011 88 complet ed [facility] Results Combined list of recent chemistry, hematology and other laboratory results from Department of Defense and Veterans Affairs, ranging from 15 months to all on record, depending upon the facility. Order Name Results Value Reference Range Date Interpretation Specimen Comments Source PROST. SPECIFIC AG.(PB-ST L) PROSTATE SPECIFIC AG [MASS/VOLUM E] IN SERUM OR PLASMA 3.775 ng/mL 0 - 4 02/24 Specimen Type: SERUM Comment: The listed sex of this patient may not be a typical indication for this test. Therefore, reference ranges or interpretiv e criteria listed may not be valid. Clinical correlation suggested. Ordering Provider: KATELYN HU Report Released Date/Time: Feb 18, 2024 12:27 PM Reporting Lab: [address] [address] Performing Lab: [address] [address] [facility] TESTOSTER ONE, FREE PANEL TESTOSTERON E [MASS/VOLUM E] IN SERUM OR PLASMA 350 ng/dL 250 - 1100 01/27 Specimen Type: SERUM Comment: Men with clinically significant hypogonadal symptoms and testosteron e values repeatedly in the range of the 200-300 ng/dL or less, may benefit from testosteron e treatment after adequate risk and benefits counseling. For additional information , please refer to http://educ ation.[employer] History [employer] .com/faq/ TotalTestos teroneLCMSM [id number] (This link is being provided for information al/ educational purposes only.) This test was developed and its analytical performance characteris tics have been determined by [employer] [place], [place]. It has not been cleared or approved by the U.S. Food and Drug Administrat ion. This assay has been validated pursuant to the CLIA regulations and is used for clinical purposes. Test Performed by [facility], [employer] [place], [address] [place], [place] Rod Cutler M.D., Ph.D., Director of Laboratorie s , CLIA [id number] Ordering Provider: GADIEL JIMENEZ Report Released Date/Time: Jul 06, 2023 08:46 AM Reporting Lab: [facility] [address] [facility] [address] Performing Lab: [address] [facility] TESTOSTER ONE, FREE PANEL ALBUMIN [MASS/VOLUM E] IN SERUM OR PLASMA 4.4 g/dL 3.6 - 5.1 01/27 Specimen Type: SERUM Comment: Men with clinically significant hypogonadal symptoms and testosteron e values repeatedly in the range of the 200-300 ng/dL or less, may benefit from testosteron e treatment after adequate risk and benefits counseling. For additional information , please refer to http://educ ation.[employer] History [employer] .[employer]/faq/ TotalTestos teroneLCMSM [id number] (This link is being provided for information al/ educational purposes only.) This test was developed and its analytical performance characteris tics have been determined by [employer] [place], [place]. It has not been cleared or approved by the U.S. Food and Drug Administrat ion. This assay has been validated pursuant to the CLIA regulations and is used for clinical purposes. Test Performed by [facility], [employer] [place], [address] [place], [place] Rod Cutler M.D., Ph.D., Director of Laboratorie s , CLIA [id number] Ordering Provider: GADIEL JIMENEZ Report Released Date/Time: Jul 06, 2023 08:46 AM Reporting Lab: [address] [address] Performing Lab: [address] [facility] TESTOSTER ONE, FREE PANEL TESTOSTERON E FREE [MOLES/VOLU ME] IN SERUM OR PLASMA 46.5 pg/mL 6.0 - 73.0 01/27 Specimen Type: SERUM Comment: Men with clinically significant hypogonadal symptoms and testosteron e values repeatedly in the range of the 200-300 ng/dL or less, may benefit from testosteron e treatment after adequate risk and benefits counseling. For additional information , please refer to http://educ ation.The History [employer] .com/faq/ TotalTestos teroneLCMSM [id number] (This link is being provided for information al/ educational purposes only.) This test was developed and its analytical performance characteris tics have been determined by [employer] [place], [place]. It has not been cleared or approved by the U.S. Food and Drug Administrat ion. This assay has been validated pursuant to the CLIA regulations and is used for clinical purposes. Test Performed by [facility], [employer] [facility], [address] [place] [address] Rod Cutler M.D., Ph.D., Director of Laboratorie s , CLIA [id number] Ordering Provider: GADIEL JIMENEZ Report Released Date/Time: Jul 06, 2023 08:46 AM Reporting Lab: [place] [address] [facility] [address] Performing Lab: [address] [facility] TESTOSTER ONE, FREE PANEL TESTOSTERON E.FREE+WEAK LY BOUND [MASS/VOLUM E] IN SERUM OR PLASMA 93.6 ng/dL 15.0 - 150.0 01/27 Specimen Type: SERUM Comment: Men with clinically significant hypogonadal symptoms and testosteron e values repeatedly in the range of the 200-300 ng/dL or less, may benefit from testosteron e treatment after adequate risk and benefits counseling. For additional information , please refer to http://[employer]/faq/ TotalTestos teroneLCMSM [id number] (This link is being provided for information al/ educational purposes only.) This test was developed and its analytical performance characteris tics have been determined by [employer] [place], [place]. It has not been cleared or approved by the U.S. Food and Drug Administrat ion. This assay has been validated pursuant to the CLIA regulations and is used for clinical purposes. Test Performed by [facility], [employer] [place], [address] [place], [place] Rod Cutler M.D., Ph.D., Director of Laboratorie s , CLIA [id number] Ordering Provider: GADIEL JIMENEZ Report Released Date/Time: Jul 06, 2023 08:46 AM Reporting Lab: [facility] [address] [facility] [address] Performing Lab: [facility] [address] [facility] TESTOSTER ONE, FREE PANEL SEX HORMONE BINDING GLOBULIN [MOLES/VOLU ME] IN SERUM OR PLASMA 32 nmol/L 22 - 77 01/27 Specimen Type: SERUM Comment: Men with clinically significant hypogonadal symptoms and testosteron e values repeatedly in the range of the 200-300 ng/dL or less, may benefit from testosteron e treatment after adequate risk and benefits counseling. For additional information , please refer to http://[employer] History [employer] .[employer]/faq/ TotalTestos teroneLCMSM [id number] (This link is being provided for information al/ educational purposes only.) This test was developed and its analytical performance characteris tics have been determined by [employer] [place], [place]. It has not been cleared or approved by the U.S. Food and Drug Administrat ion. This assay has been validated pursuant to the CLIA regulations and is used for clinical purposes. Test Performed by [facility], [employer] [facility], [address] [place], [place] Rod Cutler M.D., Ph.D., Director of Laboratorie s , CLIA [id number] Ordering Provider: GADIEL JIMENEZ Report Released Date/Time: Jul 06, 2023 08:46 AM Reporting Lab: [address] [address] Performing Lab: [facility] [address] [facility] LIPID PANEL (STL) CHOLESTEROL [MASS/VOLUM E] IN SERUM OR PLASMA 133 mg/dL 0 - 200 01/27 Specimen Type: PLASMA Comment: No hemolysis noted. Ordering Provider: SUZANNE RUTLEDGE Report Released Date/Time: Jun 14, 2023 02:34 PM Reporting Lab: [address] [address] Performing Lab: [address] [phone] [place] [address] LIPID PANEL (STL) TRIGLYCERID E [MASS/VOLUM E] IN SERUM OR PLASMA 49 mg/dL 0 - 150 01/27 Specimen Type: PLASMA Comment: No hemolysis noted. Ordering Provider: SUZANNE RUTLEDGE Report Released Date/Time: Jun 14, 2023 02:34 PM Reporting Lab: [facility] [address] [place] [phone] Performing Lab: [address] [phone] [place] [address] LIPID PANEL (STL) CHOLESTEROL IN LDL [MASS/VOLUM E] IN SERUM OR PLASMA BY CALCULATION 77 mg/dL 01/27 Specimen Type: PLASMA Comment: No hemolysis noted. Ordering Provider: SUZANNE RUTLEDGE Report Released Date/Time: Jun 14, 2023 02:34 PM Reporting Lab: [facility] [address] [place] [address] [place] [address] Performing Lab: [facility] [address] [facility] [address] [facility] LIPID PANEL (STL) CHOLESTEROL IN HDL [MASS/VOLUM E] IN SERUM OR PLASMA 46 mg/dL 40 01/27 Specimen Type: PLASMA Comment: No hemolysis noted. Ordering Provider: SUZANNE RUTLEDGE Report Released Date/Time: Jun 14, 2023 02:34 PM Reporting Lab: [facility] [address] [place] [phone] Performing Lab: [facility] [address] [place] [phone] [facility] HGA1C HEMOGLOBIN A1C/HEMOGLO BIN.TOTAL IN BLOOD 6.1 4.0 - 6.0 01/27 H Specimen Type: BLOOD No comment entered. Ordering Provider: SUZANNE RUTLEDGE Report Released Date/Time: Jun 14, 2023 02:34 PM Reporting Lab: [facility] [address] [place] [phone] Performing Lab: [facility] [address] [place] [phone] [facility] COMPREHEN SIVE METABOLIC PANEL CREATININE [MASS/VOLUM E] IN SERUM OR PLASMA 1.09 mg/dL 0.7 - 1.3 01/27 Specimen Type: PLASMA Comment: No hemolysis noted. Ordering Provider: SUZANNE RUTLEDGE Report Released Date/Time: Jun 14, 2023 02:34 PM Reporting Lab: [facility] [address] [facility] [address] Performing Lab: [facility] [address] [place] [phone] [facility] COMPREHEN SIVE METABOLIC PANEL UREA NITROGEN [MASS/VOLUM E] IN SERUM OR PLASMA 24.7 mg/dL 9.0 - 25.0 01/27 Specimen Type: PLASMA Comment: No hemolysis noted. Ordering Provider: SUZANNE RUTLEDGE Report Released Date/Time: Jun 14, 2023 02:34 PM Reporting Lab: [facility] [address] [facility] [address] Performing Lab: [facility] [address] [facility] [address] [facility] COMPREHEN SIVE METABOLIC PANEL GLUCOSE [MASS/VOLUM E] IN SERUM OR PLASMA 100 mg/dL 72 - 99 01/27 H Specimen Type: PLASMA Comment: No hemolysis noted. Ordering Provider: SUZANNE RUTLEDGE Report Released Date/Time: Jun 14, 2023 02:34 PM Reporting Lab: [facility] [address] [facility] [address] Performing Lab: [facility] [address] [facility] [address] [facility] COMPREHEN SIVE METABOLIC PANEL SODIUM [MOLES/VOLU ME] IN SERUM OR PLASMA 141 meq/L 136 - 145 01/27 Specimen Type: PLASMA Comment: No hemolysis noted. Ordering Provider: SUZANNE RUTLEDGE Report Released Date/Time: Jun 14, 2023 02:34 PM Reporting Lab: [facility] [address] Performing Lab: [facility] [address] [facility] [address] [facility] COMPREHEN SIVE METABOLIC PANEL POTASSIUM [MOLES/VOLU ME] IN SERUM OR PLASMA 4.9 meq/L 3.5 - 5 01/27 Specimen Type: PLASMA Comment: No hemolysis noted. Ordering Provider: SUZANNE RUTLEDGE Report Released Date/Time: Jun 14, 2023 02:34 PM Reporting Lab: [facility] [address] [facility] [address] Performing Lab: [facility] [address] [facility] [address] [facility] COMPREHEN SIVE METABOLIC PANEL CHLORIDE [MOLES/VOLU ME] IN SERUM OR PLASMA 107 meq/L 98 - 107 01/27 Specimen Type: PLASMA Comment: No hemolysis noted. Ordering Provider: SUZANNE RUTLEDGE A Report Released Date/Time: Jun 14, 2023 02:34 PM Reporting Lab: [facility] [address] [facility] [address] Performing Lab: [facility] [address] [place] [phone] [facility] COMPREHEN SIVE METABOLIC PANEL CARBON DIOXIDE, TOTAL [MOLES/VOLU ME] IN SERUM OR PLASMA 25 meq/L 22 - 31 01/27 Specimen Type: PLASMA Comment: No hemolysis noted. Ordering Provider: SUZANNE RUTLEDGE A Report Released Date/Time: Jun 14, 2023 02:34 PM Reporting Lab: [facility] [address] [place] [phone] Performing Lab: [facility] [address] [place] [phone] [place] [address] COMPREHEN SIVE METABOLIC PANEL CALCIUM [MASS/VOLUM E] IN SERUM OR PLASMA 10.4 mg/dL 8.4 - 10.4 01/27 Specimen Type: PLASMA Comment: No hemolysis noted. Ordering Provider: SUZANNE RUTLEDGE A Report Released Date/Time: Jun 14, 2023 02:34 PM Reporting Lab: [facility] [address] [facility] [address] Performing Lab: [facility] [address] [place] [address] [phone] [facility] COMPREHEN SIVE METABOLIC PANEL PROTEIN [MASS/VOLUM E] IN SERUM OR PLASMA 7.3 g/dL 6 - 8.6 01/27 Specimen Type: PLASMA Comment: No hemolysis noted. Ordering Provider: SUZANNE RUTLEDGE A Report Released Date/Time: Jun 14, 2023 02:34 PM Reporting Lab: [facility] [address] [facility] [phone] Performing Lab: [facility] [address] [facility] [phone] [facility] COMPREHEN SIVE METABOLIC PANEL ALBUMIN [MASS/VOLUM E] IN SERUM OR PLASMA 4.4 g/dL 3.4 - 5 01/27 Specimen Type: PLASMA Comment: No hemolysis noted. Ordering Provider: SUZANNE RUTLEDGE Report Released Date/Time: Jun 14, 2023 02:34 PM Reporting Lab: [facility] [address] [place] [phone] Performing Lab: [facility] [address] [place] [phone] [place] [address] COMPREHEN SIVE METABOLIC PANEL BILIRUBIN.T OTAL [MASS/VOLUM E] IN SERUM OR PLASMA 1.0 mg/dL 0.2 - 1.2 01/27 Specimen Type: PLASMA Comment: No hemolysis noted. Ordering Provider: SUZANNE RUTLEDGE Report Released Date/Time: Jun 14, 2023 02:34 PM Reporting Lab: [address] [address] Performing Lab: [facility] [address] [facility] [address] [facility] COMPREHEN SIVE METABOLIC PANEL ALKALINE PHOSPHATASE [ENZYMATIC ACTIVITY/VO LUME] IN SERUM OR PLASMA 113 U/L 40 - 150 01/27 Specimen Type: PLASMA Comment: No hemolysis noted. Ordering Provider: SUZANNE RUTLEDGE Report Released Date/Time: Jun 14, 2023 02:34 PM Reporting Lab: [address] [address] Performing Lab: [facility] [address] [place] [phone] [facility] COMPREHEN SIVE METABOLIC PANEL ASPARTATE AMINOTRANSF ERASE [ENZYMATIC ACTIVITY/VO LUME] IN SERUM OR PLASMA 22 U/L 5 - 34 01/27 Specimen Type: PLASMA Comment: No hemolysis noted. Ordering Provider: SUZANNE RUTLEDGE Report Released Date/Time: Jun 14, 2023 02:34 PM Reporting Lab: [facility] [address] [place] [phone] Performing Lab: [place] [address] [facility] [phone] [place] [address] COMPREHEN SIVE METABOLIC PANEL ALANINE AMINOTRANSF ERASE [ENZYMATIC ACTIVITY/VO LUME] IN SERUM OR PLASMA 26 U/L 8 - 40 01/27 Specimen Type: PLASMA Comment: No hemolysis noted. Ordering Provider: SUZANNE RUTLEDGE Report Released Date/Time: Jun 14, 2023 02:34 PM Reporting Lab: [facility] [address] [place] [phone] Performing Lab: [phone] [place] [address] COMPREHEN SIVE METABOLIC PANEL GLOMERULAR FILTRATION RATE/1.73 SQ M.PREDICTED [VOLUME RATE/AREA] IN SERUM, PLASMA OR BLOOD BY CREATININE- BASED FORMULA (CKD-EPI 2020) 70.3 60 01/27 Specimen Type: PLASMA Comment: No hemolysis noted. Ordering Provider: SUZANNE RUTLEDGE Report Released Date/Time: Jun 14, 2023 02:34 PM Reporting Lab: [facility] [address] [place] [phone] Performing Lab: [facility] [address] [place] [phone] [place] [address] MICRAL/CR EAT PROFILE (STL) ALBUMIN [MASS/VOLUM E] IN URINE 18.8 mg/L 01/27 Specimen Type: URINE No comment entered. Ordering Provider: SUZANNE RUTLEDGE Report Released Date/Time: Jun 14, 2023 02:34 PM Reporting Lab: [facility] [address] [facility] [address] Performing Lab: [facility] [address] [place] [phone] [place] [address] MICRAL/CR EAT PROFILE (STL) ALBUMIN/CRE ATININE [MASS RATIO] IN URINE 18 mg/g 0 - 29 01/27 Specimen Type: URINE No comment entered. Ordering Provider: SUZANNE RUTLEDGE A Report Released Date/Time: Jun 14, 2023 02:34 PM Reporting Lab: [facility] [address] [facility] [phone] Performing Lab: [facility] [address] [place] [phone] [place] [address] MICRAL/CR EAT PROFILE (STL) CREATININE [MASS/VOLUM E] IN URINE 106.7 mg/dL 63 - 166 01/27 Specimen Type: URINE No comment entered. Ordering Provider: SUZANNE RUTLEDGE Report Released Date/Time: Jun 14, 2023 02:34 PM Reporting Lab: [facility] [address] [place] [phone] Performing Lab: [address] [phone] [place] [address] TSH (MA-PB) THYROTROPIN [UNITS/VOLU ME] IN SERUM OR PLASMA 1.653 u[IU]/ mL 0.47 - 5 01/27 Specimen Type: SERUM Comment: No hemolysis noted. Ordering Provider: SUZANNE RUTLEDGE A Report Released Date/Time: Jun 14, 2023 02:34 PM Reporting Lab: [facility] [address] [place] [phone] Performing Lab: [address] [address] [facility] VITAMIN D, 25-HYDROX Y 25-HYDROXYV ITAMIN D3 [MASS/VOLUM E] IN SERUM OR PLASMA 61.6 ng/mL 30 - 96 01/27 Specimen Type: SERUM No comment entered. Ordering Provider: SUZANNE RUTLEDGE Report Released Date/Time: Jun 14, 2023 02:34 PM Reporting Lab: [facility] [address] [place] [phone] Performing Lab: [facility] [address] [place] [phone] [facility] CBC LEUKOCYTES [#/VOLUME] IN BLOOD BY AUTOMATED COUNT 8.3 10*3/u L 3.6 - 11.2 01/27 Specimen Type: BLOOD No comment entered. Ordering Provider: SUZANNE RUTLEDGE A Report Released Date/Time: Jun 14, 2023 02:34 PM Reporting Lab: [facility] [address] [place] [phone] Performing Lab: [facility] [address] [place] [phone] [facility] CBC ERYTHROCYTE S [#/VOLUME] IN BLOOD BY AUTOMATED COUNT 4.27 10*6/u L 4.10 - 5.70 01/27 Specimen Type: BLOOD No comment entered. Ordering Provider: SUZANNE RUTLEDGE A Report Released Date/Time: Jun 14, 2023 02:34 PM Reporting Lab: [facility] [address] [place] [phone] Performing Lab: [address] [phone] [place] [address] CBC HEMOGLOBIN [MASS/VOLUM E] IN BLOOD 13.8 g/dL 13.1 - 16.8 01/27 Specimen Type: BLOOD No comment entered. Ordering Provider: SUZANNE RUTLEDGE A Report Released Date/Time: Jun 14, 2023 02:34 PM Reporting Lab: [facility] [address] [place] [phone] Performing Lab: [address] [phone] [place] [address] CBC HEMATOCRIT [VOLUME FRACTION] OF BLOOD 40.8 38.2 - 48.4 01/27 Specimen Type: BLOOD No comment entered. Ordering Provider: SUZANNE RUTLEDGE A Report Released Date/Time: Jun 14, 2023 02:34 PM Reporting Lab: [facility] [address] [place] [phone] Performing Lab: [address] [address] [facility] CBC MCV [ENTITIC VOLUME] BY AUTOMATED COUNT 95.6 fL 80.0 - 100.0 01/27 Specimen Type: BLOOD No comment entered. Ordering Provider: SUZANNE RUTLEDGE A Report Released Date/Time: Jun 14, 2023 02:34 PM Reporting Lab: [facility] [address] [place] [phone] Performing Lab: [facility] [address] [place] [phone] [facility] CBC MCH [ENTITIC MASS] BY AUTOMATED COUNT 32.3 pg 27.0 - 34.0 01/27 Specimen Type: BLOOD No comment entered. Ordering Provider: SUZANNE RUTLEDGE A Report Released Date/Time: Jun 14, 2023 02:34 PM Reporting Lab: [facility] [address] [place] [phone] Performing Lab: [facility] [address] [place] [address] [phone] [place] [address] CBC MCHC [MASS/VOLUM E] BY AUTOMATED COUNT 33.8 g/dL 33.0 - 36.0 01/27 Specimen Type: BLOOD No comment entered. Ordering Provider: SUZANNE RUTLEDGE A Report Released Date/Time: Jun 14, 2023 02:34 PM Reporting Lab: [facility] [address] [place] [phone] Performing Lab: [facility] [address] [place] [address] [phone] [place] [address] CBC PLATELETS [#/VOLUME] IN BLOOD BY AUTOMATED COUNT 253 10*3/u L 150 - 400 01/27 Specimen Type: BLOOD No comment entered. Ordering Provider: SUZANNE RUTLEDGE A Report Released Date/Time: Jun 14, 2023 02:34 PM Reporting Lab: [facility] [address] [place] [phone] Performing Lab: [facility] [address] [place] [phone] [facility] CBC PLATELET MEAN VOLUME [ENTITIC VOLUME] IN BLOOD BY AUTOMATED COUNT 11.7 fL 7.5 - 11.2 01/27 H Specimen Type: BLOOD No comment entered. Ordering Provider: SUZANNE RUTLEDGE A Report Released Date/Time: Jun 14, 2023 02:34 PM Reporting Lab: [facility] [address] [facility] [phone] Performing Lab: [facility] [address] [facility] [phone] [facility] CBC ERYTHROCYTE DISTRIBUTIO N WIDTH [RATIO] BY AUTOMATED COUNT 13.2 11.8 - 15.1 01/27 Specimen Type: BLOOD No comment entered. Ordering Provider: SUZANNE RUTLEDGE A Report Released Date/Time: Jun 14, 2023 02:34 PM Reporting Lab: [facility] [address] [facility] [phone] Performing Lab: [facility] [address] [facility] [phone] [place] [address] CBC LYMPHOCYTES /100 LEUKOCYTES IN BLOOD BY AUTOMATED COUNT 25 01/27 Specimen Type: BLOOD No comment entered. Ordering Provider: SUZANNE RUTLEDGE A Report Released Date/Time: Jun 14, 2023 02:34 PM Reporting Lab: [facility] [address] [facility] [phone] Performing Lab: [facility] [address] [place] [phone] [facility] CBC MONOCYTES/1 00 LEUKOCYTES IN BLOOD BY AUTOMATED COUNT 10 01/27 Specimen Type: BLOOD No comment entered. Ordering Provider: SUZANNE RUTLEDGE A Report Released Date/Time: Jun 14, 2023 02:34 PM Reporting Lab: [facility] [address] [facility] [address] Performing Lab: [facility] [address] [place] [phone] [facility] CBC NEUTROPHILS /100 LEUKOCYTES IN BLOOD BY AUTOMATED COUNT 62 01/27 Specimen Type: BLOOD No comment entered. Ordering Provider: SUZANNE RUTLEDGE A Report Released Date/Time: Jun 14, 2023 02:34 PM Reporting Lab: [facility] [address] [facility] [phone] Performing Lab: [facility] [address] [place] [phone] [facility] CBC EOSINOPHILS /100 LEUKOCYTES IN BLOOD BY AUTOMATED COUNT 2 01/27 Specimen Type: BLOOD No comment entered. Ordering Provider: SUZANNE RUTLEDGE Report Released Date/Time: Jun 14, 2023 02:34 PM Reporting Lab: [facility] [address] [place] [phone] Performing Lab: [address] [phone] [place] [address] CBC BASOPHILS/1 00 LEUKOCYTES IN BLOOD BY AUTOMATED COUNT 1 01/27 Specimen Type: BLOOD No comment entered. Ordering Provider: SUZANNE RUTLEDGE A Report Released Date/Time: Jun 14, 2023 02:34 PM Reporting Lab: [facility] [address] [place] [phone] Performing Lab: [facility] [address] [place] [phone] [facility] CBC LYMPHOCYTES [#/VOLUME] IN BLOOD BY AUTOMATED COUNT 2.09 10*3/u L 0.77 - 4.50 01/27 Specimen Type: BLOOD No comment entered. Ordering Provider: SUZANNE RUTLEDGE A Report Released Date/Time: Jun 14, 2023 02:34 PM Reporting Lab: [facility] [address] [place] [phone] Performing Lab: [facility] [address] [place] [phone] [facility] CBC MONOCYTES [#/VOLUME] IN BLOOD BY AUTOMATED COUNT 0.80 10*3/u L 0.19 - 0.80 01/27 Specimen Type: BLOOD No comment entered. Ordering Provider: SUZANNE RUTLEDGE A Report Released Date/Time: Jun 14, 2023 02:34 PM Reporting Lab: [facility] [address] [place] [phone] Performing Lab: [facility] [address] [place] [address] [phone] [place] [address] CBC NEUTROPHILS [#/VOLUME] IN BLOOD BY AUTOMATED COUNT 5.16 10*3/u L 2.10 - 8.00 01/27 Specimen Type: BLOOD No comment entered. Ordering Provider: SUZANNE RUTLEDGE A Report Released Date/Time: Jun 14, 2023 02:34 PM Reporting Lab: [facility] [address] [place] [phone] Performing Lab: [address] [phone] [place] [address] CBC EOSINOPHILS [#/VOLUME] IN BLOOD BY AUTOMATED COUNT 0.17 10*3/u L 0.00 - 0.60 01/27 Specimen Type: BLOOD No comment entered. Ordering Provider: SUZANNE RUTLEDGE A Report Released Date/Time: Jun 14, 2023 02:34 PM Reporting Lab: [facility] [address] [place] [phone] Performing Lab: [facility] [address] [place] [address] [phone] [place] [address] CBC BASOPHILS [#/VOLUME] IN BLOOD BY AUTOMATED COUNT 0.06 10*3/u L 0.00 - 0.20 01/27 Specimen Type: BLOOD No comment entered. Ordering Provider: SUZANNE RUTLEDGE A Report Released Date/Time: Jun 14, 2023 02:34 PM Reporting Lab: [facility] [address] [place] [phone] Performing Lab: [facility] [address] [place] [phone] [facility] HGA1C HEMOGLOBIN A1C/HEMOGLO BIN.TOTAL IN BLOOD 6.0 4.0 - 6.0 03/12 Specimen Type: BLOOD No comment entered. Ordering Provider: SUZANNE RUTLEDGE A Report Released Date/Time: Jan 29, 2023 05:02 PM Reporting Lab: [facility] [address] [facility] [phone] Performing Lab: [facility] [address] [facility] [address] [facility] Vital Signs Combined list of inpatient and outpatient Vital Signs from Department of Defense and Veterans Affairs, ranging from 12 months to all on record, depending upon the facility. Vital Sign Value Date Comments Source SYSTOLIC BLOOD PRESSURE 154 02/18/2024 12:10:43 [facility] DIASTOLIC BLOOD PRESSURE 73 02/18/2024 12:10:43 [facility] PULSE OXIMETRY 95 02/18/2024 12:10:43 S Kaylen [facility] WEIGHT 170.8 02/18/2024 12:10:43 [facility] BMI 27 kg/m2 02/18/2024 12:10:43 [facility] PAIN 6 02/18/2024 12:10:43 [facility] HEIGHT 67 02/18/2024 12:10:43 [facility] TEMPERATURE 98.2 02/18/2024 12:10:43 [facility] PULSE 89 02/18/2024 12:10:43 [facility] RESPIRATION 22 02/18/2024 12:10:43 [facility] SYSTOLIC BLOOD PRESSURE 134 01/21/2024 14:37:52 [facility] DIASTOLIC BLOOD PRESSURE 76 01/21/2024 14:37:52 [facility] PULSE OXIMETRY 95 01/21/2024 14:37:52 S [place] WEIGHT 169 01/21/2024 14:37:52 [facility] BMI 27 kg/m2 01/21/2024 14:37:52 [facility] PAIN 6 01/21/2024 14:37:52 [facility] HEIGHT 67 01/21/2024 14:37:52 [facility] TEMPERATURE 97.8 01/21/2024 14:37:52 [facility] PULSE 90 01/21/2024 14:37:52 STDilcia [facility] RESPIRATION 18 01/21/2024 14:37:52 [facility] Encounters Combined list of: 1) Encounters from Department of [facility] Affairs facilities going backup to the last 18 months, not all VA inpatient encounters are included; 2) Encounters from the Department of [place] facilities going backup to 280 months. Location Location Details Encounter Type Encounter Number Reason For Visit Attending Provider ADM Date DC Date Status Disposition Source [facility] Outpatient Encounter [id number] 01/16 [facility] Outpatient Encounter [id number] 01/19 [facility] Outpatient Encounter [id number] PLACIDO SCHULZ 01/19 [facility] Outpatient Encounter [id number] 01/19 [facility] Outpatient Encounter [id number] PLACIDO SCHULZ 01/30 [facility] Outpatient Encounter [id number] 02/15 [facility] Outpatient Encounter [id number] 03/27 [facility] Outpatient Encounter [id number] PLACIDO SCHULZ 03/27 [facility] OFFICE O/P EST SF 10 MIN [id number] Diagnos is: ICD-10- CM E11.9 Type 2 diabete s mellitu s without complic ations RUTLEDGE,AR MIDA A 05/[address] [facility] OFFICE O/P EST MOD 30 MIN [id number] Diagnos is: ICD-10- CM F43.12 Post-tr aumatic stress disorde r, chronic RUTLEDGE,AR MIDA A 06/14 [facility] OFFICE O/P EST MOD 30 MIN [id number] Diagnos is: ICD-10- CM E29.1 Testicu lar hypofun ctJOSEMANUEL Omalley WNTayla K 07/05 [facility] Outpatient Encounter [id number] 10/08 [facility] Outpatient Encounter [id number] 01/01 [facility] OFFICE O/P EST MOD 30 MIN [id number] Diagnos is: ICD-10- CM F43.12 Post-tr aumatic stress disorde r, chronic RUTLEDGE,AR MIDA A 01/20 [facility] Outpatient Encounter [id number] 01/21 [facility] Outpatient Encounter [id number] 01/21 [facility] Outpatient Encounter [id number] 01/23 [facility] Outpatient Encounter [id number] 01/23 [facility] OFFICE O/P EST LOW 20 MIN [id number] Diagnos is: ICD-10- CM E29.1 Testicu lar hypofun ction FRITZKATELYN 02/17 [facility] XM&SLCTN BINAURL [id number] Diagnos is: ICD-10- CM H90.3 Sensori neural hearing loss, Cristiano Johnson 05/02 [facility] N [facility] SUP/ACCESS /DEV [id number] Diagnos is: ICD-10- CM H90.3 Sensori neural hearing loss, maryDANIELA Knox 06/09 [facility] N [facility] OFFICE O/P EST LOW 20 MIN [id number] Diagnos is: ICD-10- CM E29.1 Testicu lar hypofun óscarKATELYN Gracia 07/04 [facility] Outpatient Encounter [id number] 07/07 [facility] N Social History Combined list of available smoking, tobacco, and other social history from Department of Defense and Veterans Affairs facilities. Social History Type Response Date Comment [facility] e Tobacco smoking status ALIS VA-TOBACCO NEVER USED 09/11/2022 Dil[facility] History of tobacco use VA-TOBACCO NEVER USED 03/07/2021 [facility] History of tobacco use VA-TOBACCO NEVER USED 09/26/2019 [facility] History of tobacco use [place]-TO[place]ACCO NEVER USED 04/12/2018 [facility] History of tobacco use LIFETIME NON-USER OF TOBACCO 03/13/2016 [facility] History of tobacco use LIFETIME NON-USER OF TOBACCO 03/15/2015 [facility] Plan of Care List of future care activities from Department [facility] facilities. Additional future care activities may be listed in the Assessment and Plan section. Date/Time Care Activity Care Activity Detail Facili ty 08/18/2024 AMBULATORY - MEDICINE AMBULATORY - MEDICI NE [facility] 08/18/2024 Laboratory - Potato Spotter ry Order PROST. SPECIFIC AG.(PB-STL) GOLD/RED SST SERUM [facility] 08/18/2024 Laboratory - Potato Spotter ry Order TESTOSTERONE, FREE PANEL RED/NO-GEL SERUM SP [facility] 08/18/2024 Laboratory - Potato Spotter ry Order HGB,HCT,PLT BLOOD [facility]
--- OUTSIDE RECORDS SUMMARY | 2024-07-14 16:53 | XMS_ITS | Referral Summary ---
Author Organization [facility] Address [address] [place] [address] Care Team Providers Care Emt Driver Name Role Phone Joel Graff MD Primary Care Provider [phone] Source Comments [facility],non-owned Affiliates and Associated Physician Practices is amultiple site organization consisting of ambulatory clinics and hospital sitesin [place], [place], [place]. This disclosure is being madepursuant to the Care Everywhere program and may not contain all information available regarding this patient. Last updated 18.[facility] [employer] Allergies No known active allergies Immunizations Name Administration Dates Next Due INFLUENZA VACCINE, HIGH-DOSE , QUADR. (FLUZONE HIGH-DOSE QUADRIVALENT; 65Y+), 0.7 ML ([id number]) 02/03/2018 Social History Tobacco Use Types Packs/Day Years Used Date Smoking Tobacco: Never Assessed Sex and Gender Information Value Date Recorded Sex Assigned at Not on file Gender Identity Not on file Sexual Orientation Not on file Plan of Treatment Not on file Care Teams Emt Driver Relationship Specialty Start Date End Date Joel Graff MD [address] [facility] [[email or web address] [address] [place] [id number] PCP - General 10/04/20
--- OUTSIDE RECORDS SUMMARY | 2024-07-14 16:53 | XMS_ITS | Clinical Summary ---
Author Organization [facility] Address [address] [place] [address] Care Team Providers Care Mixing And Molding Machine Operator Name Role Phone Joel Graff MD Primary Care Provider [phone] Beny Mauricio MD Unavailable [phone] Allergies Active Allergy Reactions Criticality Noted Date Comments Tape Rash Low 07/25/2019 Medications amlodipine 5 MG tablet Take 1 tablet (5 mg total) by mouth daily. 10/16/2018 Active losartan 50 MG tablet Take 1 tablet (50 mg total) by mouth daily. 08/05/2018 Active famotidine 20 MG tablet Take 1 tablet (20 mg total) by mouth daily. 09/01/2018 Active multi vitamin/minerals tablet Take 1 tablet by mouth daily. Active testosterone (ANDROGEL) 20.25 MG/ACT (1.62%) Gel Place 2 Pump onto the skin daily. Active cholecalciferol 5000 units Tab Take 1 tablet (5,000 Units total) by mouth daily. Active FLUTICASONE PROPIONATE HFA IN Inhale into the lungs as needed. Active nitroglycerin 0.[address] 1 tablet (0.4 mg total) under the tongue every 5 (five) minutes as needed (if taking third dose, contact 911). 25 tablet 07/25/2019 Active atorvastatin 80 MG tablet Take 1 tablet (80 mg total) by mouth daily. 11/01/2019 Active isosorbide mononitrate ER 30 MG 24 hr tablet Take 1 tablet (30 mg total) by mouth every morning. 11/01/2019 Active FOLPLEX 2.2 2.2-25-0.5 MG Tab Take 1 tablet by mouth daily. 07/27/2020 Active metFORMIN 1000 MG tablet Take 1 tablet (1,000 mg total) by mouth daily. 09/09/2020 Active aspirin EC (ECOTRIN) 81 MG tablet Take 1 tablet (81 mg total) by mouth daily. Active Apoaequorin (PREVAGEN OR) Take 1 tablet by mouth daily. Active doxycycline hyclate (VIBRAMYCIN) 100 MG capsule Take 1 capsule (100 mg total) by mouth 2 (two) times daily. 10/17/2023 Active empagliflozin (JARDIANCE) 25 MG tablet Take 0.5 tablets (12.5 mg total) by mouth. 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 Positive stress test. Heart score: 5 - monitor on telemetry - cont home lipitor and antihypertensives - Tylenol prn for mild pain, nitrostat PRN - continue ASA 81 mg daily - cardiology consulted, cath tomorrow Essential hypertension 10/30/2018 Assessment & Plan (10/31/2018 12:28 PM CDT): Chronic, uncontrolled Found to be hypertensive in ED above goal (<140/90 due to DM2 history) -cont home cozaar 50mg - hold amlodipine prior to procedure Diabetes mellitus, type 2 ([facility]) 06/2018 Assessment & Plan (10/31/2018 12:27 PM CDT): Chronic, A1C 6.3 - continue home metformin Hyperlipidemia 10/30/2018 Assessment & Plan (10/31/2018 12:34 PM CDT): Cont home lipitor 20mg [place] 10/30/2018 Assessment & Plan (10/31/2018 12:25 PM CDT): Acute, stable Found to have frequent PVCs in PCP office. On telemetry in ED in [place] Known mitral valve prolapse Social History Tobacco Use Types Packs/Day Years [...] on file Sexual Orientation Not on file Last Filed Vital Signs Vital Sign Reading Time Taken Comments Blood Pressure 120/70 10/23/2023 8:33 AM CDT Pulse 73 10/23/2023 8:33 AM CDT Temperature 37 C (98.6 F) 11/01/2018 7:23 PM CDT Respiratory Rate 16 07/25/2019 8:30 AM CDT Oxygen Saturation 97% 10/23/2023 8:33 AM CDT Inhaled Oxygen Concentration - - Weight 77.2 kg (170 lb 3.2 oz) 10/23/2023 8:33 A M CDT Height 165.1 cm (5' 5 ) 10/23/2023 8:33 AM CDT Body Mass Index 28.32 10/23/2023 8:33 AM CDT Plan of Treatment Upcoming Encounters Date Type Department Care Team (Late st Contact Info) Description 10/28/2024 8:45 AM CDT Office Visit [facility], [address] [address] Jean-Paul Turner MD [facility]. [facility] [address] [place] [address] Health Maintenance Due Date Last Done Comments ASCVD Statin 1945 Kidney Health Evaluation 1945 Diabetes: Retinopathy Eye Exam 1965 Hepatitis C 1965 Annual Medicare Wellness Visit 2012 Zoster Vaccines (2 of 3) 07/29/2018 06/03/2018, 02/28 ASCVD LDL 05/18/2023 05/18/2022, 09/29, 09/19/2021, Additional history exists Lipid Panel 05/18/2023 05/18/2022, 09/29, 09/19/2021, Additional history exists Hemoglobin A1C 07/16/2023 01/15/2023, 08/29, 12/15/2019, Additional history exists COVID-19 Vaccine ( season) 2023 01/16/2023, 01/28/2022, 09/18/2021, Additional history exists Influenza Adult (#1) 2024 01/29/2020, 12/28/2019, 01/28/2019, Additional history exists DTaP, Tdap and Td Vaccines (3 - Td or Tdap) 02/27/2032 02/26/2022, 03/15/2015 Pneumococcal Vaccine: 65+ Years Completed 02/10/2017, 09/11/2016, 07/19/2015, Additional history exists RSV Immunization or 60+ Years Completed 01/16/2023 Meningococcal B Vaccine Aged Out No l onger eligible based on patient's age to complete this topic Meningococcal Vaccine Aged Out No thanh oneyda eligible based on patient's age to complete this topic RSV Immunizations Under 20 Months Aged Out No longer eligible based on patient's age to complete this topic Procedures Procedure Name Priority Date/Time Associated Diagnosis Comments LIPID PANEL Routine 05/18/2022 HEMOGLOBIN, GLYCOSYLATED Routine 09/19/2021 from Last 3 Months or Most Recently Relevant to Health Maintenance Results * LIPID PANEL (05/18/2022) CHOLESTEROL 122 TRIGLYCERIDES 49 HDL 41 DIRECT LDL 58 Narrative Resulting Agency Comment us Default History Genericprovider LABORATORY Final Result * HEMOGLOBIN, GLYCOSYLATED (09/19/2021) HGB A1C 6.0 % 09/19/2021 us Doc [facility] LABORATORY Final Result from Last 3 Months or Most Recently Relevant to Health Maintenance Insurance MEDICARE [facility] MEDICARE Advance Directives * Full Code (Latest Code Status on File) Date Activated Date Inactivated Comments 10/30/2018 10:59 PM 11/02/2018 1:53 AM Care Teams Mixing And Molding Machine Operator Relationship Specialty Start Date End Date Joel Graff MD [address] [place] [address] PCP - General INTERNAL MEDICINE 10/30/18 Beny Mauricio MD [address] [facility] [address] [place] [id number] [place] Scale Technician CARDIOVASCULAR DISEASE 07/09/19
--- OUTSIDE RECORDS SUMMARY | 2024-07-14 16:53 | XMS_ITS | Clinical Summary ---
Author Organization [facility] Address [facility] [place] [address] Care Team Providers Care Talent Solutions Manager Name Role Phone Joel Graff MD Primary Care Provider [phone] Fred Staples Unavailable [phone] Bertin Kelley MD PhD Unavailable [phone] Allergies Active Allergy Reactions Criticality Noted Date Comments Adhesive Rash Medium 07/25/2019 Medications amLODIPine (NORVASC) 5 mg tabletIndication s:hypertension Take 1 tablet (5 mg total) by mouth every morning 3 Active atorvastatin (LIPITOR) 80 mg tabletIndication s:hyperlipidemia Take 1 tablet (80 mg total) by mouth leak patcher before breakfast 3 Active Folplex 2.2 2.2-25-0.5 mg tabletIndication s:Vitamin Deficiency Prevention Take 1 tablet by mouth leak patcher before breakfast 3 Active famotidine (PEPCID) 20 mg tabletIndication s:Heartburn Prevention Take 1 tablet (20 mg total) by mouth leak patcher before breakfast 3 Active isosorbide mononitrate ER (IMDUR) 30 mg 24 hr tabletIndication s:prevention of anginal pain in coronary artery disease Take 1 tablet (30 mg total) by mouth leak patcher before breakfast 3 Active losartan (COZAAR) 50 mg tabletIndication s:hypertension Take 1 tablet (50 mg total) by mouth leak patcher before breakfast 3 Active metFORMIN (GLUCOPHAGE) 1,000 mg tabletIndication s:type 2 diabetes mellitus Take 1 tablet (1,000 mg total) by mouth every morning 3 Active cholecalciferol, vitamin D3, 1,000 unit tablet,chewableI ndications:Preve ntion of Vitamin D Deficiency Take 1 tablet/chew tab by mouth leak patcher before breakfast Active UNABLE TO FINDIndications: supplement Take 1 each by mouth leak patcher before breakfast Med Name: Prevagen Active vitamin b complex tabletIndication s:Vitamin Deficiency Prevention Take 1 tablet by mouth leak patcher before breakfast Active docusate sodium (COLACE) 100 [...] (03/08/2023): Mar 07, 2021 Entered By: LORAINE RUTELDGE Comment: neg biopsy dec 2020 - [facility] Chronic post-traumatic stress disorder (PTSD) Spinal stenosis of lumbar region 03/08/2023 Testicular hypofunction 03/08/2023 Tremor 03/08/2023 Vitamin D3 deficiency 03/08/2023 Cervical disc disorder with myelopathy of mid-cervical region 12/26/2022 Coronary artery disease of n ative artery of [place] heart with stable angina pectoris 07/25/2019 09/20/2022 NSTEMI (non-ST elevated myocardial infarction) 0 11/01/2018 09/20/2022 [facility] 10/30/2018 09/20/2022 Overview (09/20/2022): Last Assessment & Plan: Acute, stable Found to have frequent PVCs in PCP office. 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 Gender Identity Not on file Sexual Orientation Not on file 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 Not on file Not on file Not on file Obstetrics History Last Filed Vital Signs Vital Sign Reading [...] 12/20/2023 1:11 PM CDT Plan of Treatment Health Maintenance Due Date Last Done Comments Albumin Creatinine Ratio, Urine 1945 Depression Screening 1945 Hepatitis C Screening 1945 Dilated Eye Exam 1945 Foot Exam 1945 Hepatitis B Screening 1965 Well Visit 65+ 2012 Zoster Vaccine (2 of 3) 07/29/2018 06/03/2018, 03/15 Lipid Panel 05/18/2023 05/18/2022, 10/30/2018 Hemoglobin A1C 07/16/2023 01/15/2023 Covid-19 Vaccine (6 - 2023-2 5 season) 2023 01/28/2022, 09/18/2021, 01/30/2021, Additional history exists Influenza Vaccine (#1) 2023 , 12/19/2020, 01/29/2020, Additional history exists eGFR 01/16/2024 01/15/2023 Fall Risk Assessment 01/27/2024 01/26/2023 DTaP/Tdap/Td Vaccine (3 - Td or Tdap) 02/27/2032 02/26/2022, 03/15/2015 Pneumococcal vaccine 65+ Completed 017, 09/11/2016, 07/19/2015, Additional history exists Medical Devices Implanted Type Area Personal Lines Appraiser Device Identifier Shelf Expiration Date Model / Serial / Lot Rt Total Knee Arthroplasty Knee [employer] Allograft Bone Putty 2.5cc 700-025 - [id number] Implanted:Qty: 1 on 01/24/2023 by Bertin Kelley MD PhD at [facility] N/A: Spine Cervical [employer] [id number] 03/29/2025 700-025 / / [id number] Allosource Canpac Nonpurge Frozen Graft 50cc Bone [id number] - [id number] - [id number] Implanted:Qty: 1 on 01/24/2023 by Bertin Kelley MD PhD at [facility] N/A: Spine Cervical Allosource 10/16/2027 [id number] / [id number] / Jeanette [employer] Virage 3.5mm 14mm Polyaxial Spine Screw Bone Nonsterile 07.48250.007 - [id number] Implanted:Qty: 8 on 01/24/2023 by Bertin Kelley MD PhD at [facility] N/A: Spine Cervical JEAN[employer]TE [employer] [id number] 07 / / [employer] Virage 4mm 28mm Self Tap Polyaxial Friction Fit Spine Screw Bone 07.15022.064 - [id number] Implanted:Qty: 2 on 01/24/2023 by Bertin Kelley MD PhD at [facility] N/A: Spine Cervical [employer] 07.26552.0 64 / / [employer] Virage 3.5mm 70mm Branden Spinal Titanium Nonsterile 07.40143.007 - [id number] Implanted:Qty: 2 on 01/24/2023 by Bertin Kelley MD PhD at [facility] N/A: Spine Cervical [employer] 07.98346.0 07 / / [employer] Virage Closure Top Lid Sterilization Nonsterile Disposable Screw 07.26929.001 - [id number] Implanted:Qty: 10 on 01/24/2023 by Bertin Kelley MD PhD at [facility] N/A: Spine Cervical [employer] 07.58643.0 01 / / Procedures Procedure Name Priority Date/Time Associated Diagnosis Comments EGFR Routine 01/15/2023 3:16 PM CDT Cervical disc disorder with myelopathy of mid-cervical region POCT HEMOGLOBIN A1C Routine 01/15/2023 2 :26 PM CDT from Last 3 Months or Most Recently Relevant to Health Maintenance Results * (ABNORMAL) eGFR (01/15/2023 3:16 PM CDT) Pathologist [facility] eGFR 78(L) 90 - 130 mL/min/1. 73 m2 [facility] Comment: Interpretive Data Reference Interval Normal >/= [...] of Race in Diagnosing Kidney Disease, JASN 2020). The CKD-EPI equation should not be used for patients with unstable renal function and has not been validated in children and those over 70. Current interpretive data was last reviewed 2021. Blood 01/15/2023 3:16 PM CDT 01/15/2023 4:21 PM CDT us Bertin Kelley MD PhD LAB BLOOD ORDERABLES Jennifer l Result [facility] [address] [facility] Department [place] [address] * POCT hemoglobin A1c (01/15/2023 2:26 PM CDT) Hgb A1C, POC 5.2 4.0 - 5.6 % [facility] Est Average Gluc POC 103 mg/dL [facility] Comment: The ADA recommends reporting an estimated Average Glucose (eAG) with all Hemoglobin A1c results using the equation derived from a study of 507 normal and diabetic adults. Minority populations were underrepresented and children were not included. (Diabetes Care 31:9167-3789, 2008). The eAG is not equivalent to a fasting glucose. Blood 01/15/2023 2:26 PM CDT 01/15/2023 2:26 PM CDT Bertin Kelley MD PhD POINT OF CARE TEST ORDERA BLES Final Result [facility] Department [place] [address] from Last 3 Months or Most Recently Relevant to Health Maintenance Insurance MEDICARE [facility] MEDICARE SUPPLEMENT Member Subscriber Plan / Payer (Ef fective 2022-Present) Name:Herb Rendon Relation to Subscriber:Self Name:Herb Rendon Payer ID:[id number] Group ID:[id number] Type:COMMERCIAL Address: [address] [place] [id number] MEDICARE [facility] Advance Directives For more information, please contact: [phone] Documents on File Type Date Recorded Patient Telecasting Technician Expl anation ADVANCE DIRECTIVE 01/18/2023 11:56 PM PHIL R OF AIRLINE PILOT FLIGHT INSTRUCTOR-MEDICAL * Full Code (Latest Code Status on File) Date Activated Date Inactivated Comments 01/24/2023 7:10 PM 01/26/2023 7:31 PM Care Teams Talent Solutions Manager Relationship Specialty Start Date End Date Joel Graff MD [address] [place] [address] PCP - General Internal Medicine 08/14/22 Fred Staples PA [address] [place] [address] Physician Launching Pad Mechanic Neurosurgery 01/14/24 Bertin Kelley MD PhD [address] [facility] [place] [address] Consulting Physician Neurosurgery 01/14/24
--- OUTSIDE RECORDS SUMMARY | 2024-07-14 16:53 | XMS_ITS | Clinical Summary ---
Author Organization [facility] Address [address] [place] [address] Care Team Providers Care Marine Machinist Name Role Phone Joel Graff MD Primary Care Provider [phone] Source Comments [facility],non-owned Affiliates and Associated Physician Practices is amultiple site organization consisting of ambulatory clinics and hospital sitesin [place], [place], [place] and [place]. This disclosure is being madepursuant to the Care Everywhere program and may not contain all information available regarding this patient. Last updated 18.[facility] Qubole Allergies No known active allergies Immunizations Name Administration Dates Next Due INFLUENZA VACCINE, HIGH-DOSE , QUADR. (FLUZONE HIGH-DOSE QUADRIVALENT; 65Y+), 0.7 ML (HD-IIV4) 02/03/2018 Social History Tobacco Use Types Packs/Day Years Used Date Smoking Tobacco: Never Assessed Sex and Gender Information Value Date Recorded Sex Assigned at Not on file Gender Identity Not on file Sexual Orientation Not on file Plan of Treatment Health Maintenance Due Date Last Done Comments MEDICARE AWV 12 MONTHS 1945 HEPATITIS C SCREENING 04/18/1965 DTAP/TDAP/TD VACCINES (1 - Tdap) 1966 PNEUMOCOCCAL VACCINE 50+ (1 of 1 - PCV) 1997 ZOSTER VACCINE (1 of 2) 1997 Respiratory Syncytial Virus (RSV) Vaccine Pt: or over 60 yrs (1 - 1-dose 75+ series) 2022 COVID-19 VACCINE ( - 2023-2 5 season) 2023 INFLUENZA VACCINE (#1) 2023 02/03/2018 DEPRESSION SCREENING 04/30/2024 HEPATITIS B VACCINE Aged Out No longe r eligible based on patient's age to complete this topic HIB VACCINE Aged Out No longer eligi ble based on patient's age to complete this topic HPV VACCINE Aged Out No longer eligi ble based on patient's age to complete this topic MENINGOCOCCAL (Group B) VACC INE SHARED DECISION-MAKING Aged Out No longer eligibl e based on patient's age to complete this topic MENINGOCOCCAL GROUPS A/C/Y/W VACCINE Aged Out No longer eligible b ased on patient's age to complete this topic Care Teams Marine Machinist Relationship Specialty Start Date End Date Joel Graff MD [address] [facility] [address] [place] [address] PCP - General 10/04/20
--- OUTSIDE RECORDS SUMMARY | 2024-07-14 16:53 | XMS_ITS | Encounter Summary ---
Author Organization [facility] Address [address] [place] [address] Care Team Providers Care Sewing Machine Operator Name Role Phone Joel Graff MD Primary Care Provider [phone] Encounter Details Date Type Department Care Team (Late st Contact Info) Description 10/05/2020 Lab Requisition [facility] [address] [facility] [place] [address] Ellen Cardenas DO [address] [facility] [address] [place] [address] Social History Tobacco Use Types Packs/Day Years Used Date Smoking Tobacco: Never Assessed Sex and Gender Information Value Date Recorded Sex Assigned at Not on file Gender Identity Not on file Sexual Orientation Not on file documented as of this encounter Plan of Treatment Not on file documented as of this encounter Procedures Procedure Name Priority Date/Time Associated Diagnosis Comments DERMATOPATHOLOGY Routine 10/04/2020 12:0 0 AM CDT documented in this encounter Results * DERMATOPATHOLOGY (10/04/2020 12:00 AM CDT) Case Report Dermatopathology Report Case: [id number] Authorizing Provider: Ellen Cardenas DO Collected: 10/04/2020 12:00 AM Ordering Location: [facility] Received: 10/05/2020 11:04 AM Pathologist: Katrina Rao MD Specimens: A) - Skin, mid back superior B) - Skin, mid back inferior C) - Skin, right chin 2:00 PM T DERMATOPATHOLOGY LABORATORY Final Diagnosis Specimen A. SKIN, mid back superior: DERMAL FIBROSIS (L90.5) (see microscopic description) Specimen B. SKIN, mid back inferior: COMPOUND MELANOCYTIC NEVUS (D22.5) Specimen C. SKIN, right chin: SEBACEOUS HYPERPLASIA (L73.8) (see microscopic description) 2:00 PM T DERMATOPATHOLOGY LABORATORY Clinical History A: Nevus vs cyst R/O atypia, changing per patient. B: Nevus R/O atypia. C: R/O NMSC. 2:00 PM T DERMATOPATHOLOGY LABORATORY Gross Description Specimen A: Received is one formalin filled container labeled with the patient's name and designated mid back superior. The specimen consists of a shave measuring [id number]. Jar 0. Specimen B: Received is one formalin filled container labeled with the patient's name and designated mid back inferior. The specimen consists of a shave measuring [id number]. Jar 0. Specimen C: Received is one formalin filled container labeled with the patient's name and designated right chin. The specimen consists of a shave measuring [id number]. Jar 0. 2:00 PM T DERMATOPATHOLOGY LABORATORY Microscopic Description Specimen A. SKIN, mid back superior: The epidermis is unremarkable. There is focal dermal fibrosis. Additional deeper sections were obtained and reviewed. Specimen B. SKIN, mid back inferior: There are nests of melanocytes at the dermal-epidermal junction and within the dermis. Specimen C. SKIN, right chin: There are prominent sebaceous gland lobules surrounding a dilated hair follicle. Additional deeper sections were obtained and reviewed. 2:00 PM T DERMATOPATHOLOGY LABORATORY Disclaimer An external and internal positive and negative controls are appropriate for the histochemical, immunohistochemical and immunofluorescence stain(s) in this case (if any), except where stated explicitly. The performance characteristics of the stain(s) cited in this report were developed and its performance characteristic determined by the Dermatopathology Laboratory at [facility], directed by Dr. Lionel Dumont. These tests need not be, and therefore are not, approved by the [place] Food and Drug Administration. The tests are used for clinical purposes. Billing Codes Specimen Charges Stain Charges 66923 11235 28355 1 1 1 1 2:00 PM CDT DERMATOPATHOLOGY LABORATORY Embedded Images 1 2:00 PM CDT DERMATOPATHOLOGY LABORATORY Pathology/Cytology TISSUE SPECIMEN FROM SKIN / Unknown 10/04/2020 10/05/2020 11:04 AM CDT Miscellaneous samples (specimen) TISSUE SPECIMEN FROM SKIN / Unknown 10/04/2020 10/05/2020 11:04 AM CDT Miscellaneous samples (specimen) TISSUE SPECIMEN FROM SKIN / Unknown 10/04/2020 10/05/2020 11:04 AM CDT Ellen Cardenas DO LAB - PATHOLOGY/C YTOLOGY ORDERABLES Performing Organization Address [facility]/State/ZIP Co de Phone Number DERMATOPATHOLOGY LABORATORY [facility] - Department of Dermatology [facility] Specialized Medicine [address] [place] [address], [address] [phone] documented in this encounter Visit Diagnoses Not on filedocumented in this encounter Care Teams Sewing Machine Operator Relationship Specialty Start Date End Date Joel Graff MD [address] [facility] [address] [facility] [address] [place] [address] PCP - General 10/04/20 documented as of this encounter
--- OUTSIDE RECORDS SUMMARY | 2024-07-14 16:53 | XMS_ITS | Patient Health Summary ---
Author Organization [facility] Address [address] [place] [address] Care Team Providers Care Aerial Tram Operator Name Role Phone Joel Graff MD Primary Care Provider [phone] Note from [facility],non-owned Affiliates and Associated Physician Practices is amultiple site organization consisting of ambulatory clinics and hospital sitesin [place], [place], [place] and [place]. This disclosure is being madepursuant to the Care Everywhere program and may not contain all information available regarding this patient. Last updated 18.[facility] Allergies No known active allergies Immunizations * INFLUENZA VACCINE, HIGH-DOSE, QUADR. (FLUZONE HIGH-DOSE QUADRIVALENT; 65Y+), 0.7 ML (HD-IIV4)(Given 02/03/2018) Social History Tobacco Use Types Packs/Day Years Used Date Smoking Tobacco: Never Assessed Sex and Gender Information Value Date Recorded Sex Assigned at Not on file Gender Identity Not on file Sexual Orientation Not on file Procedures * DERMATOPATHOLOGY(Performed 10/04/2020) Results * DERMATOPATHOLOGY (10/04/2020 12:00 AM CDT) Case Report Dermatopathology Report Case: [id number] Authorizing Provider: Ellen Cardenas DO Collected: 10/04/2020 12:00 AM Ordering Location: [facility] DermPath Lab Received: 10/05/2020 11:04 AM Pathologist: Katrina Rao MD Specimens: A) - Skin, mid back superior B) - Skin, mid back inferior C) - Skin, right chin 2:00 [facility] Final Diagnosis Specimen A. SKIN, mid back superior: DERMAL FIBROSIS (L90.5) (see microscopic description) Specimen B. SKIN, mid back inferior: COMPOUND MELANOCYTIC NEVUS (D22.5) Specimen C. SKIN, right chin: SEBACEOUS HYPERPLASIA (L73.8) (see microscopic description) 2:00 PM [facility] Clinical History A: Nevus vs cyst R/O atypia, changing per patient. B: Nevus R/O atypia. C: R/O NMSC. 2:00 PM [facility] Gross Description Specimen A: Received is one formalin filled container labeled with the patient's name and designated mid back superior. The specimen consists of a shave measuring [id number]. Jar 0. Specimen B: Received is one formalin filled container labeled with the patient's name and designated mid back inferior. The specimen consists of a shave measuring 5e0y1yc. Jar 0. Specimen C: Received is one formalin filled container labeled with the patient's name and designated right chin. The specimen consists of a shave measuring 6b0t3xs. Jar 0. 2:00 PM [facility] Microscopic Description Specimen A. SKIN, [...] sections were obtained and reviewed. 2:00 PM [facility]ORY Disclaimer An external and internal positive and negative controls are appropriate for the histochemical, immunohistochemical and immunofluorescence stain(s) in this case (if any), except where stated explicitly. The performance characteristics of the stain(s) cited in this report were developed and its performance characteristic determined by the Dermatopathology Laboratory at [facility], directed by Dr. Lionel Dumont. These tests need not be, and therefore are not, approved by the [place] Food and Drug Administration. The tests are used for clinical purposes. Billing Codes Specimen Charges Stain Charges 91678 [id number] 1 1 1 1 2:00 PM CDT [...] Cardenas DO LAB - PATHOLOGY/C YTOLOGY ORDERABLES DERMATOPATHOLOGY LABORATORY [facility] - Department of Dermatology [facility] [address] [place] [address], [address] [phone] Care Teams Aerial Tram Operator Relationship Specialty Start Date End Date Joel Graff MD [address] [facility] [address] [facility] [address] [place] [address] PCP - General 10/04/20
--- OUTSIDE RECORDS SUMMARY | 2024-07-14 16:53 | XMS_ITS ---
Author Name [facility] Organization [facility] Address [address] [place] [address] Care Team Providers Care Improvement Rn Name Role Phone LORAINE MORGAN Primary Care Provider Unavailabl e Insurance Providers: All historical and current Section Date Range: From patient's date of to the date document was created. This section includes the names of all active insurance providers for the patient. Insurance Provider Type of Coverage Plan Name Start of Policy Coverage End of Policy Coverage Group Number Member ID Insurance Provider's Telephone Number Policy Howard's Name Patient's Relationship to Policy Howard AN[place] SUPPLEMEN [place]UD[place] MEDIC ARE SUPPL EMEMT May 31, 2022 [id number] [phone] Hemalatha RENDON ERRY PATIENT ANTHEM [place] MEDICARE SUPPLEMEN [place]UD[place] MEDIC ARE SUPPL EMEMT May 31, 2022 [id number] [phone] Hemalatha RENDON ERRY PATIENT ANTHEM [place] MEDICARE SUPPLEMEN [place]UDY MEDIC ARE SUPPL EMENT May 31, 2022 [id number] [phone] Hemalatha RENDON ERRY PATIENT [place] MED[place] SUPPLEMEN [place]UDY MEDIC ARE SUPPL EMEMT May 31, 2022 [id number] [phone] Hemalatha RENDON ERRY PATIENT MEDICARE (WNR) MEDICARE (M) PART A Mar 30, 2012 PART A [id number] BIEGERT,T ERRY PATIENT MEDICARE (WNR) MEDICARE (M) PART B Mar 30, 2012 PART B [id number] BIEGERT,T ERRY PATIENT MEDICARE (WNR) MEDICARE (M) PART A Mar 30, 2012 PART A [id number] BIEGERT,T ERRY PATIENT MEDICARE (WNR) MEDICARE (M) PART B Mar 30, 2012 PART B [id number] BIEGERT,T ERRY PATIENT Selected Encounter This section includes the information on record at DC for the Encounter. Date/Time Encounter Type Encounter Description Reason Provider Source Feb 18, 2024 12:30 PM OFFICE O/P EST LOW 20 MIN ENDOCRINOLOGY ICD-10-CM E29.1 Testicular hypofunction KATELYN GREENE Nicky Encounter Template Text not used by DC Assessments - Encounter Diagnoses This section includes the primary and secondary diagnoses documented for the Encounter. Date/Time Primary/Secondary Diagnosis Diagnosis Name Provider Source Feb 27, 2024 10:02 PM PRIMARY Testicular hypofunction KATELYN GREENE [facility] Feb 27, 2024 10:02 PM SECONDARY Type 2 diabetes mellitus without complications KATELYN GREENE [facility] Plan of Treatment: Future Appointments (+ 6 months) and Future Tests (+/- 45 days) The Plan of Treatment section includes future care activities for the patient from all DC treatmentfacilities. This section includes future appointments and future orders which are active, pending or scheduled. Future Appointments This section includes appointments that were scheduled to occur 6 months from the date of the Encounter, up to a maximum of 20 appointments. The data comes from all [place] treatment facilities. Appointment Date/Time Appointment Type Appointme nt Facility Name May 02, 2024 08:45 AM AMBULATORY - SURGERY [facility] Jun 09, 2024 08:00 AM AMBULATORY - SURGERY [facility] Jul 04, 2024 08:00 AM AMBULATORY - MEDICINE [facility] Aug 18, 2024 09:30 AM AMBULATORY - MEDICINE [facility] Lab Results: +/- 30 days of the encounter This section includes the Chemistry and Hematology Lab Results on record with DC for the patient. Radiology Reports and Pathology Reports are provided separately, in subsequent sections. Lab Results This section contains the Chemistry/Hematology Results that were resulted 30 days before or 30 daysafter the date of the Encounter. Date/Time Source Result Type Result - Unit Interpretation Reference Range Comment Feb 25, 2024 09:45 AM [facility] PROST. SPECIFIC AG.(PB-STL) Specimen Type: SERUM Comment: The listed sex of this patient may not be a typical indication for this test. Therefore, reference ranges or interpretive criteria listed may not be valid. Clinical correlation suggested. Ordering Provider: KATELYN GREENE Report Released Date/Time: Feb 18, 2024 12:27 PM Reporting Lab: [facility] [address] [facility] [address] Performing Lab: [facility] [address] [facility] [address] PROST. SPECIFIC AG.(PB-STL) 3.775 ng/mL 0-4 Jan 28, 2024 08:44 AM [facility] TESTOSTERONE, FREE PANEL Specimen Type: SERUM Comment: Men with clinically significant hypogonadal symptoms and testosterone values repeatedly in the range of the 200-300 ng/dL or less, may benefit from testosterone treatment after adequate risk and benefits counseling. For additional information, please refer to http://education .Case Commons/faq/ TotalTestosteron [id number] (This link is being provided for informational/ educational purposes only.) This test was developed and its analytical performance characteristics have been determined by [employer] [place], [place]. It has not been cleared or approved by the U.S. Food and Drug Administration. This assay has been validated pursuant to the CLIA regulations and is used for clinical purposes. Test Performed by [employer], [employer] [place], [address] [place] [address] Rod Cutler M.D., Ph.D., Director of Laboratories , CLIA [id number] Ordering Provider: LEE JIMENEZ Report Released Date/Time: Jul 06, 2023 08:46 AM Reporting Lab: [facility] [address] [place] [place] [address] Performing Lab: [facility] [address] [facility] TESTOSTERONE, TOTAL 350 ng/dL 250-1100 ALBUMIN (PB-sendout) 4.4 g/dL 3.6-5.1 TESTOSTERONE,FR EE (sendout) 46.5 pg/mL 6.0-73.0 TESTOSTERONE,BI OAVAILABLE (MA-PB-SO 93.6 ng/dL 15.0-150.0 SEX HORMONE BINDING GLOBULIN 32 nmol/L 22-77 Jan 28, 2024 08:44 AM [facility] LIPID PANEL (STL) Specimen Type: PLASMA Comment: No hemolysis noted. Ordering Provider: LORAINE MORGAN Report Released Date/Time: Jun 14, 2023 02:34 PM Reporting Lab: [address] [address] Performing Lab: [address] [address] CHOLESTEROL 133 mg/dL 0-200 TRIGLYCERIDE 49 mg/dL 0-150 CALCULATED LDL 77 mg/dL HDL(New) 46 mg/dL >40 Jan 28, 2024 08:44 AM [facility] HGA1C Specimen Type: BLOOD No comment entered. Ordering Provider: LORAINE MORGAN Report Released Date/Time: Jun 14, 2023 02:34 PM Reporting Lab: [address] [address] Performing Lab: [address] [address] HGA1C 6.1 H 4.0-6.0 Jan 28, 2024 08:44 AM [facility] MICRAL/CREAT PROFILE (STL) Specimen Type: URINE No comment entered. Ordering Provider: LORAINE MORGAN Report Released Date/Time: Jun 14, 2023 02:34 PM Reporting Lab: [address] [address] Performing Lab: [facility] [address] [facility] [place] [address] URINE ALBUMIN (PB-STL) 18.8 mg/L uACR (STL) 18 mg/g 0-29 CREATININE URINE/OTHERS 106.7 mg/dL 63-166 Jan 28, 2024 08:44 AM [facility] COMPREHENSIVE METABOLIC PANEL Specimen Type: PLASMA Comment: No hemolysis noted. Ordering Provider: LORAINE MORGAN Report Released Date/Time: Jun 14, 2023 02:34 PM Reporting Lab: [address] [address] Performing Lab: [address] [address] CREATININE 1.09 mg/dL 0.7-1.3 UREA NITROGEN 24.7 mg/dL 9.0-25.0 GLUCOSE 100 mg/dL H 72-99 SODIUM 141 meq/L 136-145 POTASSIUM 4.9 meq/L 3.5-5 CHLORIDE 107 meq/L 98-107 CARBON DIOXIDE 25 meq/L 22-31 CALCIUM 10.4 mg/dL 8.4-10.4 PROTEIN 7.3 g/dL 6-8.6 ALBUMIN 4.4 g/dL 3.4-5 TOTAL BILIRUBIN 1.0 mg/dL 0.2-1.2 ALKALINE PHOSPHATASE 113 U/L 40-150 AST/SGOT 22 U/L 5-34 ALT/SGPT 26 U/L 8-40 EGFR (CKD-EPI 2020) 70.3 >60 Jan 28, 2024 08:44 AM [facility] TSH (MA-PB) Specimen Type: SERUM Comment: No hemolysis noted. Ordering Provider: LORAINE MORGAN Report Released Date/Time: Jun 14, 2023 02:34 PM Reporting Lab: [facility] [address] [place] [address] Performing Lab: [address] [address] TSH 1.653 u[IU]/mL 0.47-5 Jan 28, 2024 08:44 AM [facility] CBC Specimen Type: BLOOD No comment entered. Ordering Provider: LORAINE MORGAN Report Released Date/Time: Jun 14, 2023 02:34 PM Reporting Lab: [facility] [address] [place] [address] Performing Lab: [facility] [address] [facility] [address] WBC 8.3 10*3/uL 3.6-11.2 RBC 4.27 10*6/uL 4.10-5.70 HGB 13.8 g/dL 13.1-16.8 HCT 40.8 38.2-48.4 MCV 95.6 fL 80.0-100.0 MCH 32.3 pg 27.0-34.0 MCHC 33.8 g/dL 33.0-36.0 PLT 253 10*3/uL 150-400 MPV 11.7 fL H 7.5-11.2 RDW 13.2 11.8-15.1 LYMPHOCYTES, AUTO % 25 MONOCYTES, AUTO % 10 NEUTROPHILS, AUTO % 62 EOSINOPHILS, AUTO % 2 BASOPHILS, AUTO % 1 LYMPHOCYTES, ABSOLUTE 2.09 10*3/uL 0.77-4.50 MONOCYTES, ABSOLUTE 0.80 10*3/uL 0.19-0.80 NEUTROPHILS, ABSOLUTE 5.16 10*3/uL 2.10-8.00 EOSINOPHILS, ABSOLUTE 0.17 10*3/uL 0.00-0.60 BASOPHILS, ABSOLUTE 0.06 10*3/uL 0.00-0.20 Jan 28, 2024 08:44 AM [facility] VITAMIN D, 25-HYDROXY Specimen Type: SERUM No comment entered. Ordering Provider: LORAINE MORGAN Report Released Date/Time: Jun 14, 2023 02:34 PM Reporting Lab: [facility] [address] [facility] [address] Performing Lab: [facility] [address] [place] [phone] VITAMIN D, 25-HYDROXY 61.6 ng/mL 30-96 Vital Signs: All taken on the encounter date This section contains inpatient and outpatient Vital Signs collected on the date of the Encounter. Date/Time Temperature Pulse Blood Pressure Respiratory Rate SP02 Pain Height Weight Body Mass Index Source Feb 18, 2024 12:10 PM 142/70 [facility] Feb 18, 2024 12:10 PM 98.2 89 154/73 22 95 6 67 170.8 27 [facility] Social History: Smoking Status (Most current) and Tobacco Use (All prior to encounter date) This section includes the most current, and the historical, smoking and tobacco- related health factors from the DC facility where the Encounter took place. Current Smoking Status This section includes the most current smoking, or tobacco-related health factor, from the DC facility where the Encounter took place. Date/Time Current Smoking Status Comment Facil ity September 26, 2019 11:27 AM VA-TOBACCO NEVER USED [facility] Radiology Reports: +/- 30 days of the encounter Radiology Reports For cases when an order for radiology services may have been completed prior to the date of the Encounter, the report list includes the Radiology Reports that were completed up to 30 days before dateof the Encounter. For cases when an order for radiology services may have been completed after the date of the Encounter, the report list also includes the Radiology Reports that were completed up to30 days after date of the Encounter. The data comes from all [place] treatment facilities. Date/Time Radiology Report Provider Source Feb 04, 2024 02:[address] HEAD W/O CONT: SUNNY RENDON [id number] M Exm Date: FEB 04, 2024@14:50 Req Phys: LORAINE MORGAN Loc: [facility]ST CLR PACT 6 PCP (Fern'abdelrahman Gillis Img Loc: [facility] IMAGING [facility] Service: Unknown [address] [address] (Case [id number] COMPLETE) CT HEAD W/O CONT (CT Detailed) CPT:54478 Reason for Study: dizziness r/o BPPV Clinical History: Responsible Attending: Loraien Morgan Attending Contact Number: [phone] Resident Contact Number: dizziness r/o BPPV Allergies listed in CPRS chart: Patient has answered NKA Creatinine: CREATININE 0.86 mg/dL 03/12/2023 08:43 /eGFR: STL EGFR (within one year). CREATININE 0.86 mg/dL (03/12/23 08:43) Wt: 169 lb [76.66 kg] (01/21/2024 14:37) History of: Renal failure, chronic or acute renal disease: NO Report Status: Verified Date Reported: FEB 04, 2024 Date Verified: FEB 04, 2024 Regional Hr Manager E-Sig:/ES/Aletha Bosch MD. FACR. Report: History: dizziness r/o BPPV. Comparison: No previous pertinent examination is available. Technique: Axial slices from cranial base to vertex without contrast. From the original axial data, coronal and sagittal reconstructions were performed. Findings: Atherosclerotic mural calcification is visible in the vertebral arteries and the carotid arteries bilaterally. Age-related volume loss is noted. No mass, midline shift, obstructive hydrocephalus or acute intracranial hemorrhage is seen. The visible orbits, sinuses and mastoids are unremarkable. The calvaria appear intact. Metallic shadows are noted in the lowest slice adjacent to the posterior C2 vertebra suspicious for prior cervical spine surgery. Impression: No acute intracranial abnormality. See above. Primary Interpreting Staff: Aletha Bosch MD. FACR, Neuroradiologist (Regional Hr Manager) /ALETHA JOVEL [facility] Encounter Notes: All associated encounter notes This section contains the clinical notes associated to the Encounter. Date/Time Encounter Note(s) Provider Source Feb 26, 2024 07:58 AM PHYSICIAN LETTERS: LOCAL TITLE: TEST RESULT GENERAL LETTER STL STANDARD TITLE: PHYSICIAN LETTERS DATE OF NOTE: FEB 26, 2024@07:58 ENTRY DATE: FEB 26, 2024@07:58:53 AUTHOR: KATELYN GREENE EXP COSIGNER: URGENCY: STATUS: COMPLETED [facility] [address] [place] [address] FEB 26, 2024 SUNNY RENDON [address] [place], [place] [address] Dear Sunny Rendon, I would like to update you on your recent test results. PSA - Prostate-specific antigen is a protein produced by cells of the prostate gland. The PSA test measures the level of PSA in the blood. PSA PROST. SPECIFIC AG.(PB-STL) 3.775 ng/mL 02/25/2024 09:45 These readings are within normal limits. Better. Down from 5 in 2022 FUTURE APPOINTMENTS: 05/02/2024 08:45 UX-AUDIOLOGY JS 07/04/2024 08:00 [facility] ENDOCRINOLOGY JC 08/18/2024 09:30 [facility] CLR PACT 6 PCP Sincerely, KATELYN QUIÑONEZ [facility] ENDOCRINE NURSE PRACTITIONER MAXWELLLUPEKATELYN CHURCH [facility] Feb 18, 2024 12:26 PM ACCOUNTING OF DISC LOSURES NOTE: LOCAL TITLE: STATE PRESCRIPTION DRUG MONITORING PROGRAM STANDARD TITLE: ACCOUNTING OF DISCLOSURES NOTE DATE OF NOTE: FEB 18, 2024@12:26:43 ENTRY DATE: FEB 18, 2024@12:26:43 AUTHOR: KATELYN GREENE EXP YOLIIGNER: URGENCY: STATUS: COMPLETED This PDMP query was submitted by Katelyn Greene NP. The clinical justification for this PDMP query is to review controlled substances prescribed outside of the [facility], and any additional information that may become available, as an important component of standard clinical care, and in accordance with [facility] policy. Patient information was shared with the PDMP [place]. No prescription(s) for controlled substances outside the [facility] were found in the last 90 days. /marisa/ KATELYN QUIÑONEZ [facility] ENDOCRINE NURSE PRACTITIONER Signed: 02/18/2024 12:26 KATELYN GREENE [facility] Feb 18, 2024 12:11 PM ENDOCRINOLOGY OUTP ATIENT NOTE: LOCAL TITLE: ENDOCRINOLOGY OUTPATIENT FOLLOW UP STL STANDARD TITLE: ENDOCRINOLOGY OUTPATIENT NOTE DATE OF NOTE: FEB 18, 2024@12:11 ENTRY DATE: FEB 18, 2024@12:11:55 AUTHOR: KATELYN GREENE EXP YOILIGNER: URGENCY: STATUS: COMPLETED ENDOCRINOLOGY OUTPATIENT FOLLOW UP STL Has ADDENDA HPI: SUNNY RENDON is a 78yo WHITE MALE f/b endocrinology for hypogonadism Pt is WM c Hx of ED x 12 years, HG x 12 years on HRT for years. Also had T2DM, on empagliflozin now instead of metformin, HTN. 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 16 samples all negative. Apr 05, 2021 had hemithyroidectomy for golf-ball sized thyroid nodule. Benign path. no changes in social hx ROS: 10 point ROS negative x above Allergies: Patient has answered NKA Active Outpatient Medications (including Supplies): Active Outpatient Medications Status 1) EMPAGLIFLOZIN 25MG TAB TAKE ONE-HALF TABLET BY MOUTH ACTIVE ONCE A DAY FOR DIABETES 2) MECLIZINE HCL 25MG CHEW TAB CHEW AND SWALLOW ONE ACTIVE TABLET BY MOUTH THREE TIMES A DAY NEEDED FOR VERTIGO CHEWABLE TABLETS MAY BE CHEWED OR SWALLOWED WHOLE. MAY CAUSE DROWSINESS. Active Non-VA Medications Status 1) Non-VA ACCU-CHEK KARRI PLUS(GLUCOSE) TEST STRIP 1 ACTIVE STRIP BLOOD TEST TWO TIMES PER WEEK 2) Non-VA ALOH/MGOH/SIMTH XTRA STRENGTH SUSP 30 ML BY ACTIVE MOUTH NEEDED 3) Non-VA AMLODIPINE BESYLATE 5MG TAB 5MG BY MOUTH ONCE ACTIVE A DAY 4) Non-VA ASPIRIN 81MG EC TAB 81MG BY MOUTH ONCE A DAY ACTIVE 5) Non-VA ATORVASTATIN CALCIUM 80MG TAB 80MG BY MOUTH ACTIVE EVERY EVENING 6) Non-VA CHOLECALCIF 25MCG (D3-1,000UNIT) TAB 1000UNIT ACTIVE BY MOUTH ONCE A DAY 7) Non-VA CYANOCOBALAMIN 500MCG TAB 2500MCG BY MOUTH ACTIVE ONCE A DAY 8) Non-VA FAMOTIDINE 20MG TAB 20MG BY MOUTH ONCE A DAY ACTIVE 9) Non-VA FAMOTIDINE 20MG TAB 20MG BY MOUTH TWICE A DAY ACTIVE 10) Non-VA FISH OIL 1000MG (500MG DHA/EPA) CAP 2000MG BY ACTIVE MOUTH ONCE A DAY 11) Non-VA FLUTICASONE PROP 50MCG 120D NASAL INHL 1 SPRAY ACTIVE EACH NOSTRIL ONCE A DAY NEEDED 12) Non-VA ISOSORBIDE MONONITRATE TAB,SA BY MOUTH ONCE A ACTIVE DAY 13) Non-VA LOSARTAN 100MG TAB 50MG BY MOUTH ONCE A DAY ACTIVE 14) Non-VA METFORMIN HCL 1000MG TAB 500MG BY MOUTH TWICE ACTIVE A DAY WITH MEALS 15) Non-VA MULTIVITAMIN CAP/TAB 1 TABLET BY MOUTH ONCE A ACTIVE DAY 16) Non-VA NITROGLYCERIN 0.4MG SL TAB 0.4MG UNDER THE ACTIVE TONGUE NEEDED 18 Total Medications PAST HISTORY: 1) Type 2 diabetes mellitus without complication 2) Benign essential hypertension 3) Gastroesophageal reflux disease without esophagitis 4) Chronic back pain greater than three months duration 5) Testicular hypofunction 6) Spinal stenosis of lumbar region 7) Deficiency of vitamin D3 8) Tremor 9) Diabetic neuropathy 10) Depression ([facility] [id number]) 11) CAD - Coronary Artery Disease ([facility] [id number]) 12) Elevated PSA ([facility] [id number]) 13) History of Polyp of Colon ([facility] [id number]) 14) Chronic Post-Traumatic Stress Disorder ([facility] [id number]) 15) H/O: surgery 16) Exposure to potentially hazardous substance PHYSICAL EXAM: BP: Measurement DT BP 01/21/2024 14:37 134/76 06/14/2023 14:05 96/72 09/11/2022 13:52 132/72 Temp: 97.8 F [36.6 C] (01/21/2024 14:37) HR: 90 (01/21/2024 14:37) Measurement DT WEIGHT LB(KG)[BMI] 01/21/2024 14:37 169(76.66)[27] 06/14/2023 14:05 170(77.11)[27] GENERAL: No acute distress, Well developed, well nourished HEENT: sclera anicteric CV: RRR, S1 S2, no S3, S4, murmur RESP: regular, unlabored, clear to auscultation bilaterally PSYCH: pleasant, appropriate FAST FOOD TEAM MEMBER: non focal LABS: LAB CUMULATIVE SELECTED 2 Collection DT Spec CHOL TRIG CalcLDL HDL a 01/28/2024 08:44 PLASM 133 49 77 46 09/11/2022 13:40 PLASM 122 75 64 43 b 09/19/2021 13:21 PLASM 117 70 61 42 c 10/07/2020 08:58 PLASM 123 53 64 48 COMMENTS: a. No hemolysis noted. b. No hemolysis noted. c. No hemolysis noted. 40.8 % (01/28/24 08:44) 0 ALBUMIN (PB-sendout) 4.4 g/dL 01/28/2024 08:44 TESTOSTERONE,BIOAVAILABLE (MA-PB-SO 93.6 ng/dL 01/28/2024 08:44 TESTOSTERONE,FREE (sendout) 46.5 pg/mL 01/28/2024 08:44 SEX HORMONE BINDING GLOBULIN 32 nmol/L 01/28/2024 08:44 TESTOSTERONE, TOTAL 350 ng/dL 01/28/2024 08:44 WBC 8.3 10*3/uL 01/28/2024 08:44 RBC 4.27 10*6/uL 01/28/2024 08:44 HGB 13.8 g/dL 01/28/2024 08:44 HCT 40.8 % 01/28/2024 08:44 MCV 95.6 fL 01/28/2024 08:44 MCH 32.3 pg 01/28/2024 08:44 MCHC 33.8 g/dL 01/28/2024 08:44 RDW 13.2 % 01/28/2024 08:44 PLT 253 10*3/uL 01/28/2024 08:44 MPV 11.7 H fL 01/28/2024 08:44 NEUTROPHILS, AUTO % 62 % 01/28/2024 08:44 LYMPHOCYTES, AUTO % 25 % 01/28/2024 08:44 MONOCYTES, AUTO % 10 % 01/28/2024 08:44 EOSINOPHILS, AUTO % 2 % 01/28/2024 08:44 BASOPHILS, AUTO % 1 % 01/28/2024 08:44 NEUTROPHILS, ABSOLUTE 5.16 10*3/uL 01/28/2024 08:44 LYMPHOCYTES, ABSOLUTE 2.09 10*3/uL 01/28/2024 08:44 MONOCYTES, ABSOLUTE 0.80 10*3/uL 01/28/2024 08:44 EOSINOPHILS, ABSOLUTE 0.17 10*3/uL 01/28/2024 08:44 BASOPHILS, ABSOLUTE 0.06 10*3/uL 01/28/2024 08:44 PROST. SPECIFIC AG.(PB-STL) 5.001 H* ng/mL 09/11/2022 13:40 PROST. SPECIFIC AG.(PB-STL) 4.393 H* ng/mL 09/19/2021 13:21 PROST. SPECIFIC AG.(PB-STL) 4.684 H* ng/mL 01/21/2021 08:05 PROST. SPECIFIC AG.(PB-STL) 4.599 H* ng/mL 10/07/2020 08:58 TSH: TSH 1.653 uIU/mL 01/28/2024 08:44 Vitamin D: VITAMIN D, 25-HYDROXY 61.6 ng/mL 01/28/2024 08:44 DEXA Date Procedure CPT Status Case # 08/07/2022 NM BONE DENSITY(DXA), AXIAL [id number] Verified 342 SKELETON 1. The minimum BMD T-score positions the patient in the normal category. 2. The associated BMD and TBS values suggest a normal resilience to fracture. Date Verified: AUG 08, 2022 Regional Hr Manager E-Sig:/ES/Thais Tanner M.D. Report: Dual -Energy X-ray Absorptiometry (DXA) with Trabecular Bone Score (TBS) calculation Findings: Bone mineral density measurements of the forearm, proximal femur and lumbar spine with their appropriate regions of interest outlined are available for viewing in [facility]. Lumbar spine: Measured BMD in L1-L4 is 1.635 g/cm2; T-score = 4.9 1/3 Radius: Measured BMD in left one-third radius is 0.867 g/cm2; T-score = 0.9 Femoral neck: Measured BMD in left femoral neck is 0.980 g/cm2; T-score = 0.4 Total hip: Measured BMD in left total hip is 1.064 g/cm2; T-score = 0.2 Interval change: No prior for comparison. Trabecular bone score (TBS) L1-L4: 1.502 = normal microarchitecture. Impression: 1. The minimum BMD T-score positions the patient in the normal category. 2. The associated BMD and TBS values suggest a normal resilience to fracture. Assessment/Plan: 1. Hypogonadism Advised him to use the lowest dose of T that provides symptomatic relief. Will continue androgel for now 1-1.5 pumps per day. total T 350 12/2023 hct WNL 12/2023 PSA 08/2022 normal dexa 07/2022 cleared by urology with elevated PSA attributes change in LUT from SGLt2i for DM renewed androgel 2 pumps daily -Informed to wash hands after putting on the medicine. -Patient to inform if any changes in mood or sleep noted. -Risks of aggravating SIENNA with HRT reviewed reviewed risks-benefits -repeat PSA in [facility] 2. T2DM. a1c 6.1% on empagliflozin RTC: 06/2024 already has [facility] LEAD NETWORK ENGINEER Jc Pt verbalized understand and had no questions /marisa/ KATELYN QUIÑONEZ [facility]- ENDOCRINE NURSE PRACTITIONER Signed: 02/18/2024 12:33 02/26/2024 ADDENDUM STATUS: COMPLETED sending pt letter: PSA - Prostate-specific antigen is a protein produced by cells of the prostate gland. The PSA test measures the level of PSA in the blood. PSA PROST. SPECIFIC AG.(PB-STL) 3.775 ng/mL 02/25/2024 09:45 These readings are within normal limits. Better. Down from 5 in 2022 /marisa/ KATELYN QUIÑONEZ [facility] ENDOCRINE NURSE PRACTITIONER Signed: 02/26/2024 07:59 KATELYN GREENE [facility]
--- OUTSIDE RECORDS SUMMARY | 2024-07-14 16:53 | XMS_ITS ---
Author Name [facility] [place] [facility] [facility] [place] Address [address] [place] [address] Care Team Providers Care Adjunct Professor Name Role Phone LORAINE RUTLEDGE Primary Care Provider Unavailabl e Insurance Providers: [...] MEDIC ARE SUPPL EMEMT May 31, 2022 [id number] [phone] Hemalatha ARREOLA ERRY PATIENT ANTHEM BCBS [place] MEDICARE SUPPLEMEN LUDY MEDIC ARE SUPPL EMEMT May 31, 2022 [id number] [phone] Hemalatha ARREOLA ERRY PATIENT ANTHEM BC[place] MEDICARE SUPPLEMEN LUDY MEDIC ARE SUPPL EMENT May 31, 2022 [id number] [phone] Hemalatha ARREOLA ERRY PATIENT BCBS [place] MEDICARE SUPPLEMEN [place]UD[place] MEDIC ARE SUPPL EMEMT May 31, 2022 [id number] [phone] Hemalatha ARREOLA ERRY PATIENT MEDICARE (WNR) MEDICARE (M) PART A Mar 30, 2012 PART A [id number] BIEGERT,T ERRY PATIENT MEDICARE (WNR) MEDICARE (M) PART B Mar 30, 2012 PART B [id number] BIEGERT,T ERRY PATIENT MEDICARE (WNR) MEDICARE (M) PART A Mar 30, 2012 PART A [id number] BIEGERT,T ERRY PATIENT MEDICARE (WNR) MEDICARE (M) PART B Mar 30, 2012 PART B [id number] BIEGERT,T ERRY PATIENT Selected Encounter This section includes the information on record at [place] for the Encounter. Date/Time Encounter Type Encounter Description Reason Provider Source Jun 09, 2024 08:00 AM HEARING AID SUP/ACCESS/DEV AUDIOLOGY ICD-10-CM H90.3 Sensorineural hearing loss, bilateral ASHISH HUMPHRIES NI B IHE Encounter Template Text not used by [place] Assessments - Encounter Diagnoses This section includes the primary and secondary diagnoses documented for the Encounter. Date/Time Primary/Secondary Diagnosis Diagnosis Name Provider Source Jun 09, 2024 08:11 AM PRIMARY Sensorineural hearing loss, bilateral MAURY HUMPHRIES [facility] Plan of Treatment: Future Appointments (+ 6 months) and Future Tests (+/- 45 days) The Plan of Treatment section includes future care activities for the patient from all [place] treatmentfacilities. This section includes future appointments and future orders which are active, pending or scheduled. Future Appointments This section includes appointments that were scheduled to occur 6 months from the date of the Encounter, up to a maximum of 20 appointments. The data comes from all [place] treatment facilities. Appointment Date/Time Appointment Type Appointme nt Facility Name Jul 04, 2024 08:00 AM AMBULATORY - MEDICINE [facility] Aug 18, 2024 09:30 AM AM[facility]ULATORY - MEDICINE [facility] Social History: Smoking Status (Most current) and Tobacco Use (All prior to encounter date) This section includes the most current, and the historical, smoking and tobacco- related health factors from the [facility] facility where the Encounter took place. Current Smoking Status This section includes the most current smoking, or tobacco-related health factor, from the [place] facility where the Encounter took place. Date/Time Current Smoking Status Comment Facil ity Mar 13, 2016 08:58 AM LIFETIME NON-USER OF TOBACCO [facility] Tobacco Use History This section includes a history of the smoking, or tobacco-related health factors, that were collected on or before the date of the Encounter. The data comes from the [place] facility where the Encounter took place. Date/Time Smoking Status/Tobacco Use Comment Yuly marin Mar 15, 2015 07:54 AM LIFETIME NON-USER OF TOBACCO [facility] Encounter Notes: All associated encounter notes This section contains the clinical notes associated to the Encounter. Date/Time Encounter Note(s) Provider Source Jun 09, 2024 07:38 AM AUDIOLOGY PLUG SAW OPERATOR NOTE: LOCAL TITLE: HEARING AIDS ST STANDARD TITLE: AUDIOLOGY PLUG SAW OPERATOR NOTE DATE OF NOTE: JUN 09, 2024@07:38 ENTRY DATE: JUN 09, 2024@07:38:47 AUTHOR: DANIELA HUMPHRIES EXP COSIGNER: URGENCY: STATUS: COMPLETED SUBJECT: audio Pt was seen for fitting of new hearing aid(s). Otoscopy reveals clear ear canals. Aid(s) were programmed to First Fit and adjusted to NAL-NL2 prescriptive target. [x] provider initiated visit Family members were: [x] Present, [] Not present [x] Conformity eval completed [] Conformity eval unavailable [] Disposable batteries [x] Rechargeable batteries [x] new user [] experienced user Today, pt was fit with Phonak Audeo I90-R with slim tip molds The aids are programmed as: auto, VC, no BT. right: [id number] left: [id number] trial period: 11/05/2024 The following standardized education was provided and the pt was able to demonstrate understanding after the education: o Introduction to aids (red/blue, right/left) o Parts of the aid o Batteries and cancellation clerk, if applicable o Insertion/removal of aids. o Volume control, if applicable o Realistic expectations of aids. o Cleaning/maintenance of aids. Wax filters. [place]. o Review of the items: soft case, hard case o Review of the paperwork: battery reorder form, instruction manual, IOI survey, clinician name/number, L&D form o Review trial period and warranty o Bluetooth handout, if applicable Real-ear measures run and targets met within acceptable limits. Vet reported comfort with gain. Went over VC usage. Pt proficient with insertion/removal of aids. Verbalized understanding of hearing aid care/maintenance. Sent filters to vet's home. Rec: 1. Full-time hearing aid use to facilitate adjustment to amplification. 2. Contact [facility]iology Clinic [phone] or [phone] for repairs and/or adjustments as needed. Time for appt: 48 min /marisa/ Constance NEWMAN Staff Plaster Foreman, Surgery Service Signed: 06/09/2024 08:11 DANIELA HUMPHRIES [facility]
--- OUTSIDE RECORDS SUMMARY | 2024-07-14 16:53 | XMS_ITS | Encounter Summary ---
Author Name [facility] [facility] [place] [facility] [place] Address [address] [place] [address] Care Team Providers Care Senior Safety Support Manager Name Role Phone LORAINE RUTLEDGE Primary Care [...] MEDIC ARE SUPPL EMEMT May 31, 2022 [id number] [phone] Hemalatha ARREOLA ERRY PATIENT ANTHE[place] MEDIC[place] SUPPLEMEN [place] MEDIC ARE SUPPL EMEMT May 31, 2022 [id number] [phone] Hemalatha ARREOLA ERRY PATIENT ANTHE[place] MED[place] SUPPLEMEN [place]UDY MEDIC ARE SUPPL EMENT May 31, 2022 [id number] [phone] Hemalatha ARREOLA ERRY PATIENT BCBS [place] MEDICARE SUPPLEMEN [place]UDY MEDIC ARE SUPPL EMEMT May 31, 2022 [id number] [phone] Hemalatha ARREOLA ERRY PATIENT MEDICARE (WNR) MEDICARE (M) PART B Mar 30, 2012 PART B [id number] BIEGERT,T ERRY PATIENT MEDICARE (WNR) MEDICARE (M) PART A Mar 30, 2012 PART A [id number] BIEGERT,T ERRY PATIENT MEDICARE (WNR) MEDICARE (M) PART A Mar 30, 2012 PART A [id number] BIEGERT,T ERRY PATIENT MEDICARE (WNR) MEDICARE (M) PART B Mar 30, 2012 PART B [id number] BIEGERT,T ERRY PATIENT Selected Encounter This section includes the information on record at [place] for the Encounter. Date/Time Encounter Type Encounter Description Reason Provider Source May 02, 2024 08:45 AM HEARING AID XM&SLCTN BINAURL AUDIOLOGY ICD-10-CM H90.3 Sensorineural hearing loss, bilateral MONTSERRAT BORJAS ICA N IHE Encounter Template Text not used by [place] Assessments - Encounter Diagnoses This section includes the primary and secondary diagnoses documented for the Encounter. Date/Time Primary/Secondary Diagnosis Diagnosis Name Provider Source May 02, 2024 09:11 AM PRIMARY Sensorineural hearing loss, bilateral SIDNEY BORJAS [facility] Plan of Treatment: Future Appointments (+ 6 months) and Future Tests (+/- 45 days) The Plan of Treatment section includes future care activities for the patient from all [place] treatmentfacilities. This section includes future appointments and future orders which are active, pending or scheduled. Future Appointments This section includes appointments that were scheduled to occur 6 months from the date of the Encounter, up to a maximum of 20 appointments. The data comes from all [place] treatment facilities. Appointment Date/Time Appointment Type Appointme nt Facility Name Jun 09, 2024 08:00 AM AMBULATORY - SURGERY [facility] Jul 04, 2024 08:00 AM AMBULATORY - MEDICINE [facility] Aug 18, 2024 09:30 AM AM[facility]ORY - MEDICINE [facility] Social History: Smoking Status (Most current) and Tobacco Use (All prior to encounter date) This section includes the most current, and the historical, smoking and tobacco- related health factors from the [facility] facility where the Encounter took place. Current Smoking Status This section includes the most current smoking, or tobacco-related health factor, from the [place] facility where the Encounter took place. Date/Time Current Smoking Status Comment [place] [facility] Mar 13, 2016 08:58 AM LIFETIME NON-USER OF TOBACCO [facility] Tobacco Use History This section includes a history of the smoking, or tobacco-related health factors, that were collected on or before the date of the Encounter. The data comes from the [place] facility where the Encounter took place. Date/Time Smoking Status/Tobacco Use Comment F acility Mar 15, 2015 07:54 AM LIFETIME NON-USER OF TOBACCO [facility] Encounter Notes: All associated encounter notes This section contains the clinical notes associated to the Encounter. Date/Time Encounter Note(s) Provider Source May 02, 2024 07:19 AM AUDIOLOGY E & M NO TE: LOCAL TITLE: AUDIO EVALS STL STANDARD TITLE: AUDIOLOGY E & M NOTE DATE OF NOTE: MAY 02, 2024@07:19 ENTRY DATE: MAY 02, 2024@07:19:18 AUTHOR: FLORA BORJAS COSIGNER: URGENCY: STATUS: COMPLETED SUBJECT: Audio AUDIO EVALS STL Has ADDENDA Purpose of appt: audio [x] patient initiated visit [] provider initiated visit Case history: Otoscopic evaluation normal AU. TM's visible AU. Pt's main complaint is bilateral hearing loss; pt reported concern for increased hearing loss, noting more difficulty in background noise and listening to women's voices. Reported constant, bilateral tinnitus that may fluctuate in intensity. Pt reported episodes of dizziness/unsteadiness that occur every 2-3 days. Pt reported history of dizziness triggered by laying on the right side a few months ago, for which pt was treated with physical therapy. Pt reported dizziness symptoms have improved, but noted some continuing issues with dizziness. Pt denied pain, pressure, otosurgery, or recent ear infections. Last eval 12/04/2016. RESULTS: Right Ear- Audiometry (air and/or bone conduction): within normal limits 250-2000 Hz sloping to moderately severe 9660-8656 Hz, further sloping to severe SNHL at 8000 Hz SRT: 20 dB WRS: 96% (last eval 96%) Tympanogram: type A, WNL Reflexes: ipsi: present 500-2000 Hz only contra: present 1000 Hz only Left Ear- Audiometry (air and/or bone conduction): within normal limits 250-2000 Hz sloping to moderately severe SNHL 5359-2282 Hz. SRT: 15 dB WRS: 96% (last eval 84%) Tympanogram: type A, WNL Reflexes: ipsi: present 1000 Hz only contra: present 500-4000 Hz Bilateral SNHL. Right ear thresholds stable relative to last eval with exception of 25 dB HL deterioration at 3000 Hz and 15 dB HL deterioration at 4000 Hz. Left ear thresholds slightly improved 250-2000 Hz relative to last eval; 15 dB HL deterioration at 3000 Hz in left ear. Pt is a candidate for hearing aids. Counseled pt regarding degree of loss. Discussed full-time commitment and realistic expectations of hearing aids. HAE to follow. Hearing Aid Exam performed today: [] Monaural [x] Binaural Otoscopy reveals clear canals. Appropriate evaluation of patient leads to hearing aid order. Ear mold impression(s) taken. Hearing aid will be ordered and appointment requested for fitting. [] patient initiated visit [x] provider initiated visit [x] new user [] experienced user Discussed aids with pt to include the following: STYLE: Showed pt various demo aids in clinic from canal through BARON style. Based on thresholds WNL through 2000 Hz bilaterally, clinician recommended BARON style aids. Pt agreeable. BATTERY TYPE: Discussed rechargeable vs disposable batteries. Pt chose rechargeable. COLOR: P6 CONNECTIVITY: Declined BT connectivity at this time. MATRIX: 2M with SlimTips. After discussion, pt and clinician chose: PHONAK AUDEO I90-R BARON programmed to auto, VC Disclaimer for hearing aid selection: The [employer] does not support or endorse one private entity over another. Recommendations: 1. HAF sched. 2. Follow up with PCP regarding dizziness symptoms /marisa/ Patricia GIBSON Staff Press Hand Supervisor, Surgery Service Signed: 05/02/2024 09:42 05/15/2024 ADDENDUM STATUS: COMPLETED Aids arrived to [facility]. Certified and pre-programmed. /marisa/ ANISA PEREIRA Brine Purifier Signed: 05/15/2024 15:18 /marisa/ Patricia GIBSON Staff Press Hand Supervisor, Surgery Service Cosigned: 05/15/2024 15:42 FLORA BORJAS [facility]
--- OUTSIDE RECORDS SUMMARY | 2024-07-14 16:53 | XMS_ITS ---
Author Name [facility] Organization [facility] Address [address] [place] [address] Care Team Providers Care Supervisor Ore Dressing Name Role Phone LORAINE RUTLEDGE Primary Care [...] MEDIC ARE SUPPL EMEMT May 31, 2022 [id number] Hemalatha ARREOLA ERRY PATIENT ANTHEM [place] MEDICARE SUPPLEMEN LUDY MEDIC ARE SUPPL EMEMT May 31, 2022 [id number] [phone] Hemalatha ARREOLA ERRY PATIENT ANTHEM [place] MEDICARE SUPPLEMEN LUD[place] MEDIC ARE SUPPL EMENT May 31, 2022 [id number] [phone] Hemalatha ARREOLA ERRY PATIENT [place] MEDICARE SUPPLEMEN [place] MEDIC ARE SUPPL EMEMT May 31, 2022 [id number] [phone] Hemalatha ARREOLA ERRY PATIENT MEDICARE (WNR) MEDICARE (M) PART A Mar 30, 2012 PART A [id number] BIEGERT,T ERRY PATIENT MEDICARE (WNR) MEDICARE (M) PART B Mar 30, 2012 PART B [id number] BIEGERT,T ERRY PATIENT MEDICARE (WNR) MEDICARE (M) PART A Mar 30, 2012 PART A [id number] BIEGERT,T ERRY PATIENT MEDICARE (WNR) MEDICARE (M) PART B Mar 30, 2012 PART B [id number] BIEGERT,T ERRY PATIENT Selected Encounter This section includes the information on record at ID for the Encounter. Date/Time Encounter Type Encounter Description Reason Provider Source Jul 04, 2024 08:00 AM OFFICE O/P EST LOW 20 MIN ENDOCRINOLOGY ICD-10-CM E29.1 Testicular hypofunction KATELYN GREENE Nicky Encounter Template Text not used by ID Assessments - Encounter Diagnoses This section includes the primary and secondary diagnoses documented for the Encounter. Date/Time Primary/Secondary Diagnosis Diagnosis Name Provider Source Jul 04, 2024 08:11 AM PRIMARY Testicular hypofunction KATELYN GREENE [facility] Jul 04, 2024 08:11 AM SECONDARY Athscl heart disease of [place] coronary artery w/o ang pctrs [facility] Jul 04, 2024 08:11 AM SECONDARY Elevated prostate specific antigen [PSA] [facility] Jul 04, 2024 08:11 AM SECONDARY Type 2 diabetes mellitus without complications [facility] Plan of Treatment: Future Appointments (+ 6 months) and Future Tests (+/- 45 days) The Plan of Treatment section includes future care activities for the patient from all ID treatmentfacilities. This section includes future appointments and future orders which are active, pending or scheduled. Future Appointments This section includes appointments that were scheduled to occur 6 months from the date of the Encounter, up to a maximum of 20 appointments. The data comes from all ID treatment facilities. Appointment Date/Time Appointment Type Appointme nt Facility Name Aug 18, 2024 09:30 AM AMBULATORY - MEDICINE [facility] Active, Pending, and Scheduled Orders This section includes a listing of several types of active, pending, and scheduled orders, including clinic medications orders, diagnostic test orders, procedure orders and consult orders; where the start date of the order is 45 days before the date of the Encounter or 45 days after the date of theEncounter. The data comes from all ID treatment facilities. Test Date/Time Test Type Test Details Facility Name Aug 18, 2024 12:00 AM Laboratory - Chemi stry Order TESTOSTERONE, FREE PANEL RED/NO-GEL [facility] Aug 18, 2024 12:00 AM Laboratory - Chemi stry Order HGB,HCT,PLT BLOOD SP [facility] Aug 18, 2024 12:00 AM Laboratory - Chemi stry Order PROST. SPECIFIC AG.(PB-STL) GOLD/RED SST [facility] Social History: Smoking Status (Most current) and Tobacco Use (All prior to encounter date) This section includes the most current, and the historical, smoking and tobacco- related health factors from the ID facility where the Encounter took place. Current Smoking Status This section includes the most current smoking, or tobacco-related health factor, from the ID facility where the Encounter took place. Date/Time Current Smoking Status Comment Facil ity September 26, 2019 11:27 AM VA-TOBACCO NEVER USED [facility] Encounter Notes: All associated encounter notes This section contains the clinical notes associated to the Encounter. Date/Time Encounter Note(s) Provider Source Jul 04, 2024 08:06 AM ACCOUNTING OF DISC LOSURES NOTE: LOCAL TITLE: STATE PRESCRIPTION DRUG MONITORING PROGRAM STANDARD TITLE: ACCOUNTING OF DISCLOSURES NOTE DATE OF NOTE: JUL 04, 2024@08:06 ENTRY DATE: JUL 04, 2024@08:06 AUTHOR: KATELYN GREENE EXP COSIGNER: URGENCY: STATUS: COMPLETED This PDMP query was submitted by Katelyn Greene RETORT FIRER. The clinical justification for this PDMP query is to review controlled substances prescribed outside of the [facility], and any additional information that may become available, as an important component of standard clinical care, and in accordance with [facility] policy. Patient information was shared with the PDMP [employer] [place]. No prescription(s) for controlled substances outside the [facility] were found in the last 90 days. /marisa/ KATELYN GREENE MSN [facility]- ENDOCRINE NURSE PRACTITIONER Signed: 07/04/2024 08:06 KATELYN GREENE [facility] Jul 04, 2024 07:59 AM ENDOCRINOLOGY OUTP ATIENT NOTE: LOCAL TITLE: ENDOCRINOLOGY OUTPATIENT FOLLOW UP ST STANDARD TITLE: ENDOCRINOLOGY OUTPATIENT NOTE DATE OF NOTE: JUL 04, 2024@07:59 ENTRY DATE: JUL 04, 2024@08:00:02 AUTHOR: KATELYN GREENE EXP COSIGNER: URGENCY: STATUS: COMPLETED ENDOCRINOLOGY VIRTUAL VISIT The was educated about the use of Clinical Video Telehealth for this encounter. The [facility] also understands that a video-technology is being used for this visit. The [facility] consents to be seen today using Clinical Video Telehealth. Environment surveyed and all participants identified. Virtual conference room locked. *The Virtual Medical Room was locked for this encounter. *A survey of the environment was conducted and it is appropriate to conduct a VVC appointment. * was notified of right to decline Telehealth services and eligibility for other options. consented to be seen via VVC. EMERGENCY PLAN In the event of an emergency, the or family will call emergency services, if capable. The Teleprovider will remain in the virtual medical room until emergency response arrives and handoff to emergency services is complete. If is unable to make emergency call, the Teleprovider is to call the national E911 service at [phone] and ask to be connected to emergency services for the [facility]'s location. 's Crisis Line: Dial 988 then press 1, or text [phone] Office of Connected Care Helpdesk ([facility]): [phone] or [phone] Verified Provider's location and contact information for this appointment: [address] [phone] Emergency Services contact E-[phone] Full name and last 4 of SSN verified Patient location during visit: work Emergency number confirmed. Patient followed by endocrinology for hypogonadism PM ED,hypogonadism on HRT since ~2003? was a new consult with Dr Robertson 2016 Also had T2DM, HTN. 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 MAY CAUSE DROWSINESS. Indication: FOR VERTIGO 3) TESTOSTERONE 1.62% 20.25MG/PUMP TOP GEL APPLY 2 PUMPS ACTIVE (40.5MG) TO AFFECTED AREA(S) ONCE A DAY APPLY TO CLEAN DRY SKIN OF UPPER ARMS OR UPPER SHOULDER ONLY Indication: FOR LOW TESTOSTERONE Active Non-VA Medications Status 1) Non-VA ACCU-CHEK KARRI PLUS(GLUCOSE) TEST STRIP 1 STRIP ACTIVE BLOOD TEST TWO TIMES PER WEEK 2) Non-VA ALOH/MGOH/SIMTH XTRA STRENGTH SUSP 30 ML BY MOUTH ACTIVE NEEDED 3) Non-VA AMLODIPINE BESYLATE 5MG TAB 5MG BY MOUTH ONCE A DAY ACTIVE 4) Non-VA ASPIRIN 81MG EC TAB 81MG BY MOUTH ONCE A DAY ACTIVE 5) Non-VA ATORVASTATIN CALCIUM 80MG TAB 80MG BY MOUTH EVERY ACTIVE EVENING 6) Non-VA CHOLECALCIF 25MCG (D3-1,000UNIT) TAB 1000UNIT BY ACTIVE MOUTH ONCE A DAY 7) Non-VA CYANOCOBALAMIN 500MCG TAB 2500MCG BY MOUTH ONCE A DAY ACTIVE 8) Non-VA FAMOTIDINE 20MG TAB 20MG BY MOUTH ONCE A DAY ACTIVE 9) Non-VA FAMOTIDINE 20MG TAB 20MG BY MOUTH TWICE A DAY ACTIVE 10) Non-VA FISH OIL 1000MG (500MG DHA/EPA) CAP 2000MG BY MOUTH ACTIVE ONCE A DAY 11) Non-VA FLUTICASONE PROP 50MCG 120D NASAL INHL 1 SPRAY EACH ACTIVE NOSTRIL ONCE A DAY NEEDED 12) Non-VA ISOSORBIDE MONONITRATE TAB,SA BY MOUTH ONCE A DAY ACTIVE 13) Non-VA LOSARTAN 100MG TAB 50MG BY MOUTH ONCE A DAY ACTIVE 14) Non-VA METFORMIN HCL 1000MG TAB 500MG BY MOUTH TWICE A DAY ACTIVE WITH MEALS 15) Non-VA MULTIVITAMIN CAP/TAB 1 TABLET BY MOUTH ONCE A DAY ACTIVE 16) Non-VA NITROGLYCERIN 0.4MG SL TAB 0.4MG UNDER THE TONGUE ACTIVE NEEDED 19 Total Medications PAST HISTORY: 1) Type 2 diabetes mellitus without complication 2) Benign essential hypertension 3) Gastroesophageal reflux disease without esophagitis 4) Chronic back pain greater than three months duration 5) Testicular hypofunction 6) Spinal stenosis of lumbar region 7) Deficiency of vitamin D3 8) Tremor 9) Diabetic neuropathy 10) Depression ([facility] [id number]) 11) CAD - Coronary Artery Disease ([facility] [id number]) 12) Elevated PSA ([facility] [id number]) 13) History of Polyp of Colon ([facility] [id number]) 14) Chronic Post-Traumatic Stress Disorder ([facility] [id number]) 15) H/O: surgery 16) Exposure to potentially hazardous substance OBJECTIVE: [facility] Physical Exam GENERAL: No acute distress. Sitting comfortably Respiratory: Regular respiratory rate. Musculoskeletal: No joint deformity or effusion apparent on video Neuro: Alert and orientated SKIN: No obvious rash or ecchymosis. Objective: HGA1C 6.1 H % 01/28/2024 08:44 HGA1C 6.0 % 03/12/2023 08:43 HGA1C 6.0 % 09/11/2022 13:40 HGA1C 6.0 % 09/19/2021 13:21 HGA1C 5.9 % 10/07/2020 08:58 SODIUM 141 mEq/L 01/28/2024 08:44 POTASSIUM 4.9 mEq/L 01/28/2024 08:44 CHLORIDE 107 mEq/L 01/28/2024 08:44 UREA NITROGEN 24.7 mg/dL 01/28/2024 08:44 CREATININE 1.09 mg/dL 01/28/2024 08:44 CALCIUM 10.4 mg/dL 01/28/2024 08:44 CARBON DIOXIDE 25 mEq/L 01/28/2024 08:44 GLUCOSE 100 H mg/dL 01/28/2024 08:44 EGFR (CKD-EPI 2020) 70.3 01/28/2024 08:44 TRIGLYCERIDE 49 mg/dL 01/28/2024 08:44 CHOLESTEROL 133 mg/dL 01/28/2024 08:44 HDL(New) 46 mg/dL 01/28/2024 08:44 CALCULATED LDL 77 mg/dL 01/28/2024 08:44 TSH 1.653 uIU/mL 01/28/2024 08:44 Allergies: Patient has answered NKA Assessment/Plan: # Hypogonadism #hx elevated PSA use the lowest dose of T that provides symptomatic relief doing well on androgel total T 350 12/2023 hct WNL 12/2023 PSA 5.0 08/2022 -> 3.775 01/2024 normal DEXA 07/2022 cleared by urology with elevated PSA in the past attributes LUTs from SGLt2i for DM renewed androgel 2 pumps daily -Informed to wash hands after putting on the medicine. -Patient to inform if any changes in mood or sleep noted. -Risks of aggravating SIENNA with HRT reviewed PLAN: -ct androgel 2 pumps daily -repeat AM fasting testosteorne panel, hgb/hct, PSA in [facility] next month with PCp appt # T2DM managed by PCP/civilian PCP a1c 6.1% on empagliflozin non-VA metformin #CAD/HL LDL 77 12/2023 on non-VA statin RTC 6 months VVC, order placed pt to be called for scheduling Patient verbalized understanding and has no questions. I spent 20 minutes performing services for this patient: before, during and after the VVC visit today more than 50% of the provider's VVC visit time with a patient is spent in counseling or coordination of care /marisa/ KATELYN QUIÑONEZ [employer] [facility] MANAGER-BC ENDOCRINE NURSE PRACTITIONER Signed: 07/04/2024 08:12 KATELYN GREENE [facility]
--- OUTSIDE RECORDS SUMMARY | 2024-07-14 16:53 | XMS_ITS | Encounter Summary ---
Author Organization [facility] Address [address] [place] [id number] Care Team Providers Care Cardboard Inserter Name Role Phone Joel Graff MD Primary Care Provider [phone] Beny Mauricio MD Unavailable [phone] Encounter Details Date Type Department Care Team (Late st Contact Info) Description 01/29/2020 Abstract [facility], [address] [address] Lorna Galloway MA Social History Tobacco Use [...] CDT Office Visit [facility], [address] [phone] Jean-Paul Turner MD [facility]. [address] [address] documented as of this encounter Procedures Procedure Name Priority Date/Time Associated Diagnosis Comments BASIC METABOLIC PANEL Routine 12/15/2019 LIPID PANEL Routine 12/15/2019 HEMOGLOBIN, GLYCOSYLATED Routine 12/15/2019 THYROID STIM HORMONE TSH Routine 12/15/2019 BASIC METABOLIC PANEL Routine 08/05/2019 LIPID PANEL Routine 08/05/2019 HEMOGLOBIN, GLYCOSYLATED Routine 08/05/2019 THYROID STIM HORMONE TSH Routine 08/05/2019 documented in this encounter Results * THYROID STIM HORMONE, TSH (12/15/2019) TSH 1.930 12/15/2019 us [facility] Final Result * HEMOGLOBIN, GLYCOSYLATED (12/15/2019) HGB A1C 5.8 % 12/15/2019 Doc [facility] Final Result * LIPID PANEL (12/15/2019) CHOLESTEROL 118 HDL 36 TRIGLYCERIDES 66 LDL (CALCULATED) 60 12/15/2019 [facility] Final Result * BASIC METABOLIC PANEL (12/15/2019) SODIUM S/P/B 139 POTASSIUM S/P/B 4.4 CO2 30 CHLORIDE S/P/B 102 GLUCOSE 111 mg/dL CALCIUM S/P/B 9.5 BUN 20 CREATININE S/P/B 1.0 0.7 - 1.3 EGFR NON-AFR. AMER. >60 <=90 12/15/2019 [facility] Final Result * HEMOGLOBIN, GLYCOSYLATED (08/05/2019) HGB A1C 5.9 % 08/05/2019 [facility] Final Result * THYROID STIM HORMONE, TSH (08/05/2019) TSH 1.930 08/05/2019 [facility] Final Result * LIPID PANEL (08/05/2019) CHOLESTEROL 126 HDL 40 TRIGLYCERIDES 66 DIRECT LDL 67 08/05/2019 Doc [facility] Final Result * BASIC METABOLIC PANEL (08/05/2019) SODIUM S/P/B 141 POTASSIUM S/P/B 4.3 CO2 32 CHLORIDE S/P/B 104 GLUCOSE 107 mg/dL CALCIUM S/P/B 9.7 BUN 21 CREATININE S/P/B 1.10 0.7 - 1.3 EGFR NON-AFR. AMER. >60 <=90 08/05/2019 us Doc [facility] Final Result documented in this encounter Visit Diagnoses Not on filedocumented in this encounter Care Teams Cardboard Inserter Relationship Specialty Start Date End Date Joel Graff MD [address] [place] [id number] PCP - General INTERNAL MEDICINE 10/30/18 Beny Mauricio MD [address] [facility] [address] [place] [address] [place] [facility] CARDIOVASCULAR DISEASE 07/09/19 documented as of this encounter
--- OUTSIDE RECORDS SUMMARY | 2024-07-14 16:53 | XMS_ITS ---
Author Name [facility] [place] [facility] Address [address] [place] [address] Care Team Providers Care Enrober Tender Name Role Phone LORAINE MORGAN Primary Care [...] MEDIC ARE SUPPL EMEMT May 31, 2022 [id number] [phone] Hemalatha ARREOLA ERRY PATIENT ANTHEM BCBS [place] MEDICARE SUPPLEMEN [place] MEDIC ARE SUPPL EMEMT May 31, 2022 [id number] [phone] Hemalatha ARREOLA ERRY PATIENT ANTHEM BCBS [place] MEDICARE SUPPLEMEN LUD[place] MEDIC ARE SUPPL EMENT May 31, 2022 [id number] [phone] Hemalatha ARREOLA ERRY PATIENT BCBS [place] MEDICARE SUPPLEMEN [place]UD[place] MEDIC ARE SUPPL EMEMT May 31, 2022 [id number] [phone] Hemalatha ARREOLA ERRY PATIENT MEDICARE (WNR) MEDICARE (M) PART A Mar 30, 2012 PART A [id number] [phone] BIEGERT,T ERRY PATIENT MEDICARE (WNR) MEDICARE (M) PART B Mar 30, 2012 PART B [id number] BIEGERT,T ERRY PATIENT MEDICARE (WNR) MEDICARE (M) PART A Mar 30, 2012 PART A [id number] BIEGERT,T ERRY PATIENT MEDICARE (WNR) MEDICARE (M) PART B Mar 30, 2012 PART B [id number] BIEGERT,T ERRY PATIENT Selected Encounter This section includes the information on record at [place] for the Encounter. Date/Time Encounter Type Encounter Description Reason Provider Source Jan 21, 2024 02:30 PM OFFICE O/P EST MOD 30 MIN PRIMARY CARE/MEDICINE ICD-10-CM F43.12 Post-traumatic stress disorder, chronic MORGAN,LORAINE A [facility] Encounter Template Text not used by [facility] Assessments - Encounter Diagnoses This section includes the primary and secondary diagnoses documented for the Encounter. Date/Time Primary/Secondary Diagnosis Diagnosis Name Provider Source Jan 21, 2024 10:55 PM PRIMARY Post-traumatic stress disorder, chronic MORGAN,LORAINE A [facility] Jan 21, 2024 10:55 PM SECONDARY Athscl heart disease of [place] coronary artery w/o ang pctrs MORGAN,LORAINE A [facility] Jan 21, 2024 10:55 PM SECONDARY Benign paroxysmal vertigo, unspecified ear MORGAN,LORAINE A [facility] Jan 21, 2024 10:55 PM SECONDARY Elevated prostate specific antigen [PSA] MORGAN,LORAINE A [facility] Jan 21, 2024 10:55 PM SECONDARY Essential (primary) hypertension MORGAN,LORAINE A [facility] Jan 21, 2024 10:55 PM SECONDARY Gastro-esophageal reflux disease without esophagitis MORGAN,LORAINE A [facility] Jan 21, 2024 10:55 PM SECONDARY Personal history of colonic polyps MORGAN,LORAINE A [facility] Jan 21, 2024 10:55 PM SECONDARY Testicular hypofunction MORGAN,LORAINE A [facility] Jan 21, 2024 10:55 PM SECONDARY Type 2 diabetes mellitus without complications MATYLORAINE Tayla [facility] Plan of Treatment: Future Appointments (+ 6 months) and Future Tests (+/- 45 days) The Plan of Treatment section includes future care activities for the patient from all [place] [facility]. This section includes future appointments and future orders which are active, pending or scheduled. Future Appointments This section includes appointments that were scheduled to occur 6 months from the date of the Encounter, up to a maximum of 20 appointments. The data comes from all [facility]. Appointment Date/Time Appointment Type Appointme nt Facility Name Feb 04, 2024 04:00 PM AMBULATORY - NONE . [facility] Feb 18, 2024 12:30 PM AMBULATORY - MEDICINE [facility] Feb 18, 2024 02:15 PM AMBULATORY - SURGERY [facility] May 02, 2024 08:45 AM AMBULATORY - SURGERY . [facility] Jun 09, 2024 08:00 AM AMBULATORY - SURGERY [facility] Jul 04, 2024 08:00 AM AMBULATORY - MEDICINE [facility] Active, Pending, and Scheduled Orders This section includes a listing of several types of active, pending, and scheduled orders, including clinic medications orders, diagnostic test orders, procedure orders and consult orders; where the start date of the order is 45 days before the date of the Encounter or 45 days after the date of theEncounter. The data comes from all [facility]. Test Date/Time Test Type Test Details Facility Name Dec 31, 2023 12:00 AM Laboratory - Chemi stry Order CBC BLOOD SP [facility] Dec 31, 2023 12:00 AM Laboratory - Chemi stry Order PROST. SPECIFIC AG.(PB-STL) GOLD/RED SST SERUM SP [facility] Lab Results: +/- 30 days of the encounter This section includes the Chemistry and Hematology Lab Results on record with [facility] for the patient. Radiology Reports and Pathology Reports are provided separately, in subsequent sections. Lab Results This section contains the Chemistry/Hematology Results that were resulted 30 days before or 30 daysafter the date of the Encounter. Date/Time Source Result Type Result - Unit Interpretation Reference Range Comment Jan 28, 2024 08:44 AM [facility] TESTOSTERONE, FREE PANEL Specimen Type: SERUM Comment: Men with clinically significant hypogonadal symptoms and testosterone values repeatedly in the range of the 200-300 ng/dL or less, may benefit from testosterone treatment after adequate risk and benefits counseling. For additional information, please refer to http://education .[employer]/faq/ TotalTestosteron [email or web address] (This link is being provided for informational/ educational purposes only.) This test was developed and its analytical performance characteristics have been determined by [facility] [place]. It has not been cleared or approved by the U.S. Food and Drug Administration. This assay has been validated pursuant to the CLIA regulations and is used for clinical purposes. Test Performed by [facility], [facility], [address] [place] [address] Rod Culter M.D., Ph.D., Director of Laboratories , CLIA [id number] Ordering Provider: LEE JIMENEZ Report Released Date/Time: Jul 06, 2023 08:46 AM Reporting Lab: [address] [address] Performing Lab: [address] TESTOSTERONE, TOTAL 350 ng/dL 250-1100 ALBUMIN (PB-sendout) 4.4 g/dL 3.6-5.1 TESTOSTERONE,FR EE (sendout) 46.5 pg/mL 6.0-73.0 TESTOSTERONE,BI OAVAILABLE (MA-PB-SO 93.6 ng/dL 15.0-150.0 SEX HORMONE BINDING GLOBULIN 32 nmol/L 22-77 Jan 28, 2024 08:44 AM [facility] LIPID PANEL (STL) Specimen Type: PLASMA Comment: No hemolysis noted. Ordering Provider: LORAINE MORGAN Report Released Date/Time: Jun 14, 2023 02:34 PM Reporting Lab: [address] [address] Performing Lab: [facility] [address] [facility] [address] CHOLESTEROL 133 mg/dL 0-200 TRIGLYCERIDE 49 mg/dL 0-150 CALCULATED LDL 77 mg/dL HDL(New) 46 mg/dL >40 Jan 28, 2024 08:44 AM [facility] HGA1C Specimen Type: BLOOD No comment entered. Ordering Provider: LORAINE MORGAN Report Released Date/Time: Jun 14, 2023 02:34 PM Reporting Lab: [facility] [address] [facility] [address] Performing Lab: [address] [address] HGA1C 6.1 H 4.0-6.0 Jan 28, 2024 08:44 AM [facility] COMPREHENSIVE METABOLIC PANEL Specimen Type: PLASMA Comment: No hemolysis noted. Ordering Provider: LORAINE MORGAN Report Released Date/Time: Jun 14, 2023 02:34 PM Reporting Lab: [facility] [address] [facility] [address] Performing Lab: [facility] [address] [place] [address] CREATININE 1.09 mg/dL 0.7-1.3 UREA NITROGEN 24.7 [...] 70.3 >60 Jan 28, 2024 08:44 AM [facility] MICRAL/CREAT PROFILE (STL) Specimen Type: URINE No comment entered. Ordering Provider: LORAINE MORGAN Report Released Date/Time: Jun 14, 2023 02:34 PM Reporting Lab: [address] [address] Performing Lab: [address] [address] URINE ALBUMIN (PB-STL) 18.8 mg/L uACR (STL) 18 mg/g 0-29 CREATININE URINE/OTHERS 106.7 mg/dL 63-166 Jan 28, 2024 08:44 AM [facility] TSH (MA-PB) Specimen Type: SERUM Comment: No hemolysis noted. Ordering Provider: LORAINE MORGAN Report Released Date/Time: Jun 14, 2023 02:34 PM Reporting Lab: [address] [address] Performing Lab: [address] [address] TSH 1.653 u[IU]/mL 0.47-5 Jan 28, 2024 08:44 AM [facility] CBC Specimen Type: BLOOD No comment entered. Ordering Provider: LORAINE MORGAN Report Released Date/Time: Jun 14, 2023 02:34 PM Reporting Lab: [address] [address] Performing Lab: [address] [address] WBC 8.3 10*3/uL 3.6-11.2 RBC 4.27 10*6/uL [...] 10*3/uL 0.00-0.20 Jan 28, 2024 08:44 AM [facility] VITAMIN D, 25-HYDROXY Specimen Type: SERUM No comment entered. Ordering Provider: LORAINE MORGAN Report Released Date/Time: Jun 14, 2023 02:34 PM Reporting Lab: [facility] [address] [facility] [address] Performing Lab: [facility] [address] [place] [phone] VITAMIN D, 25-HYDROXY 61.6 ng/mL 30-96 Vital Signs: All taken on the encounter date This section contains inpatient and outpatient Vital Signs collected on the date of the Encounter. Date/Time Temperature Pulse Blood Pressure Respiratory Rate SP02 Pain Height Weight Body Mass Index Source Jan 21, 2024 02:37 PM 97.8 90 134/76 18 95 6 67 169 27 [facility] Social History: Smoking Status (Most current) and Tobacco Use (All prior to encounter date) This section includes the most current, and the historical, smoking and tobacco- related health factors from the [place] facility where the Encounter took place. Current Smoking Status This section includes the most current smoking, or tobacco-related health factor, from the [place] facility where the Encounter took place. Date/Time Current Smoking Status Comment Facil ity September 11, 2022 02:00 PM [place]-TOBACCO NEVER USED [facility] Tobacco Use History This section includes a history of the smoking, or tobacco-related health factors, that were collected on or before the date of the Encounter. The data comes from the [place] facility where the Encounter took place. Date/Time Smoking Status/Tobacco Use Comment F acility Mar 07, 2021 09:00 AM [place]-TOBAC[place] NEVER USED [facility] Apr 12, 2018 09:20 AM VA-TOBACCO NEVER USED [facility] Radiology Reports: +/- 30 days of the [...] the Encounter. The data comes from all [place] treatment facilities. Date/Time Radiology Report Provider Source Feb 04, 2024 02:[address] HEAD W/O CONT: SUNNY ARREOLA [id number] -[id number] M Exm Date: FEB 04, 2024@14:50 Req Phys: LORAINE MORGAN Loc: [facility]-ST CLR PACT 6 PCP (Fern'abdelrahman Gillis Img Loc: [facility]-CT IMAGING [facility] Service: [address] [address] (Case [id number] COMPLETE) CT HEAD W/O CONT (CT Detailed) CPT:99846 Reason for Study: dizziness r/o BPPV Clinical History: Responsible Attending: Loraine Morgan Attending Contact Number: ext [phone] Resident Contact Number: dizziness r/o BPPV Allergies listed in CPRS chart: Patient has answered NKA Creatinine: CREATININE 0.86 mg/dL 03/12/2023 08:43 /eGFR: STL EGFR (within one year). CREATININE 0.86 mg/dL (03/12/23 08:43) Wt: 169 lb [76.66 kg] (01/21/2024 14:37) History of: Renal failure, chronic or acute renal disease: NO Report Status: Verified Date Reported: FEB 04, 2024 Date Verified: FEB 04, 2024 Installation Superintendent E-Sig:/ES/Aletha Bosch MD. FACR. Report: History: dizziness [...] Interpreting Staff: Aletha Bosch MD. FACR, Neuroradiologist (Installation Superintendent) /ALETHA JOVEL [facility] Encounter Notes: All associated encounter notes This section contains the clinical notes associated to the Encounter. Date/Time Encounter Note(s) Provider Source Feb 05, 2024 10:17 AM PHYSICIAN LETTERS: LOCAL TITLE: TEST RESULT GENERAL LETTER STL STANDARD TITLE: PHYSICIAN LETTERS DATE OF NOTE: FEB 05, 2024@10:17 ENTRY DATE: FEB 05, 2024@10:17:10 AUTHOR: LORAINE MORGAN COSIGNER: URGENCY: STATUS: COMPLETED [facility] [address] [place] [address] FEB 05, 2024 SUN[address]A [address] [place] [phone] Dear Sunny Arreola, I would like to update you on your recent test results. CT SCAN HEAD Findings: Atherosclerotic mural calcification is visible in [...] vertebra suspicious for prior cervical spine surgery. PLAN There is no acute abnormal finding in this scan that would explain your vertigo. I ordered carotid ultrasound to check on the narrowing of the circulation going into your brain. Please continue your treatment as we discussed during your visit. If you have any questions please call your classification case manager. I look forward to seeing you at your next clinic appointment. Thank you for choosing the [facility] for your healthcare. FUTURE APPOINTMENTS: 02/18/2024 12:30 [facility]-ENDOCRINOLOGY [facility] 05/02/2024 08:45 XU-AUDIOLOGY JS 07/04/2024 08:00 [facility]-VVC ENDOCRINOLOGY [facility] 08/18/2024 09:30 [facility]-ST CLR PACT 6 PCP Sincerely, LORAINE ARREOLA,LORAINE BERNARD [facility] Jan 31, 2024 10:22 AM PHYSICIAN LETTERS: LOCAL TITLE: TEST RESULT GENERAL LETTER STL STANDARD TITLE: PHYSICIAN LETTERS DATE OF NOTE: JAN 31, 2024@10:22 ENTRY DATE: JAN 31, 2024@10:22:09 AUTHOR: LORAINE MORGAN EXP COSIGNER: URGENCY: STATUS: COMPLETED [facility] [address] [place] [address] JAN 31, 2024 SUNNY ARREOLA [address] [place] [phone] Dear Sunny Arreola, I would like to update you on your recent test results. LIPID PROFILE - High cholesterol and triglycerides (lipids) are risk factors for heart disease. Your cholesterol should fall between 140 and 200, and your triglycerides levels should be less than or equal to 150. HDL is the good cholesterol and should ideally be greater than 40. LDL is the bad cholesterol and optimal levels should be less than 100 (near optimal is between 100 and 129). TRIGLYCERIDE 49 mg/dL 01/28/2024 08:44 CHOLESTEROL 133 mg/dL 01/28/2024 08:44 HDL(New) 46 mg/dL 01/28/2024 08:44 CALCULATED LDL 77 mg/dL 01/28/2024 08:44 No DIRECT LDL EO data found These readings are within normal limits. HEMOGLOBIN A1C - Gives us information about your diabetes (sugar or glucose) control over the past 3 months. Your target is to keep your A1C below 6.5 %. HGA1C 6.1 H % 01/28/2024 08:44 These readings are within normal limits. CBC - A complete blood count (CBC) gives important information about the kinds and numbers of cells in the blood, especially red blood cells, white blood cells, and platelets. HGB 13.8 g/dL 01/28/2024 08:44 HEMATOCRIT 40.8 % (01/28/24 08:44) PLT 253 10*3/uL 01/28/2024 08:44 WHITE BLOOD COUNT 8.3 10*3/uL (01/28/24 08:44) These readings are within normal limits. CHEM 7 - This is important information about the current status of your kidneys, liver, and electrolyte and acid/base balance as well as of your blood sugar and blood proteins. SODIUM 141 mEq/L 01/28/2024 08:44 POTASSIUM 4.9 mEq/L 01/28/2024 08:44 CHLORIDE 107 mEq/L 01/28/2024 08:44 UREA NITROGEN 24.7 mg/dL 01/28/2024 08:44 CREATININE 1.09 mg/dL 01/28/2024 08:44 CALCIUM 10.4 mg/dL 01/28/2024 08:44 CARBON DIOXIDE 25 mEq/L 01/28/2024 08:44 GLUCOSE 100 H mg/dL 01/28/2024 08:44 EGFR (CKD-EPI 2020) 70.3 01/28/2024 08:44 These readings are within normal limits. LIVER FUNCTION PANEL - These are tests for liver function: PROTEIN 7.3 g/dL 01/28/2024 08:44 ALBUMIN 4.4 g/dL 01/28/2024 08:44 ALBUMIN (PB-sendout) 4.3 g/dL 09/11/2022 13:40 TOTAL BILIRUBIN 1.0 mg/dL 01/28/2024 08:44 ALKALINE PHOSPHATASE 113 U/L 01/28/2024 08:44 AST/SGOT 22 U/L 01/28/2024 08:44 ALT/SGPT 26 U/L 01/28/2024 08:44 These readings are within normal limits. TSH - Thyroid-stimulating hormone (also known as TSH or thyrotropin) is a peptide hormone synthesized and secreted by thyrotrope cells in the anterior pituitary gland, which regulates the endocrine function of the thyroid gland. TSH TSH 1.653 uIU/mL 01/28/2024 08:44 These readings are within normal limits. VITAMIN D - Helps promote the proper utilization of calcium and phosphorus, thereby producing proper bone maintenance. VITAMIN D, 25-HYDROXY 61.6 ng/mL 01/28/2024 08:44 These readings are within normal limits. PLAN Please continue your treatment as we discussed during your visit. If you have any questions please call your classification case manager. I look forward to seeing you at your next clinic appointment. Thank you for choosing the [facility] for your healthcare. FUTURE APPOINTMENTS: 02/04/2024 16:00 [facility]-CT FLASH PM 02/18/2024 12:30 [facility]-ENDOCRINOLOGY [facility] 05/02/2024 08:45 XU-AUDIOLOGY JS 07/04/2024 08:00 [facility]-VVC ENDOCRINOLOGY [facility] 08/18/2024 09:30 [facility]-ST CLR PACT 6 PCP Sincerely, SUNNY MATIAS MD,LORAINE RICHARD [facility] Jan 21, 2024 04:15 PM NURSING NOTE: LOCAL TITLE: V15 PACT FACE TO FACE NOTE STL STANDARD TITLE: NURSING NOTE DATE OF NOTE: JAN 21, 2024@16:15 ENTRY DATE: JAN 21, 2024@16:15:40 AUTHOR: BELLE NAM EXP COSIGNER: URGENCY: STATUS: COMPLETED Provider Visit: Patient Identifiers : Full Name Date of Reason for visit: Established Follow-Up Mode of Arrival: Ambulatory Allergy Review: Patient has answered NKA Allergy list reviewed and remains current. Recent Vital Signs: Temperature: 97.8 F [36.6 C] (01/21/2024 14:37) Pulse: 90 (01/21/2024 14:37) Respiration: 18 (01/21/2024 14:37) B/P: 134/76 (01/21/2024 14:37) Pain: 6 (01/21/2024 14:37) Wt: 169 lb [76.66 kg] (01/21/2024 14:37) Ht: 67 in [170.2 cm] (01/21/2024 14:37) BMI: 26.5 POX: 95% (01/21/2024 14:37) Would you like to discuss any personal problem, family problem, alcohol use, drug use, or a mental or emotional illness? No [facility] ([facility]), please select appointment type: Face to face: No-please briefly review benefits and direct to [facility] to get more information and register if interested. Contact provided Primary Care phone number and encouraged to call if any questions or concerns. Review that after hours nurse line [phone] and emergency room are available 20/11 for patient use. Contact verbalized good understanding. Alcohol Use Screen (AUDIT-C): Alcohol Screen: SCREEN FOR ALCOHOL (AUDIT-C) An alcohol screening test (AUDIT-C) was negative (score=0). 1. How often did you have a drink containing alcohol in the past year? Consider a drink to be a 12 ounce can or bottle of regular beer, 8 ounces of malt liquor, a 5 ounce glass of table wine, or a 1.5 ounce shot of liquor (like scotch, gin, or vodka). Never 2. How many drinks containing alcohol did you have on a typical day when you were drinking in the past year? Response not required due to responses to other questions. 3. How often did you have six or more drinks on one occasion in the past year? Response not required due to responses to other questions. /marisa/ BELLE NAM LPN LICENSED PRACTICAL NURSE Signed: 01/21/2024 16:27 BELLE NAM [facility] Jan 21, 2024 02:39 PM PRIMARY CARE NOTE: LOCAL TITLE: PRIMARY CARE PROVIDER ESTABLISHED VISIT ST STANDARD TITLE: PRIMARY CARE NOTE DATE OF NOTE: JAN 21, 2024@14:39 ENTRY DATE: JAN 21, 2024@14:39:52 AUTHOR: LORAINE MORGAN COSIGNER: URGENCY: STATUS: COMPLETED ESTABLISHED PATIENT [id number]: REASON FOR VISIT/CHIEF COMPLAINT: routine f/u of DM, HTN, MVP, HLD, gerd, hypogonadism, back pain/neck pain, and beningn thyroid nodule s/p left partial thryoidectomy HPI:Pt reports vertigo with positional changes, able to drive. no loc. ringing in both ears. did the vestibular maneuver at home and vertigo improved. denies headache,denies denies any BP issues. denies hypoglycemic episodes. His back and neck pain is stable and pain is controlled. Denies cough, fever nor chills. no burning sensation with urination. Denies CP, sob, palpitations. Topical NSAID helps with joint pains. NonVA Providers:Dr Graff PCP Dr Turner- cardio SOURCE(S) OF HISTORY: Patient PAST MEDICAL HISTORY: 1) Type 2 diabetes mellitus without complication 2) Benign essential hypertension 3) Gastroesophageal reflux disease without esophagitis 4) Chronic back pain greater than three months duration 5) Testicular hypofunction comment: androgel per NON VA uro 6) Spinal stenosis of lumbar region 7) Deficiency of vitamin D3 8) Tremor 9) Diabetic neuropathy 10) Depression ([email or web address] [id number]) 11) CAD - Coronary Artery Disease ([facility] [[email or web address]] [id number]) comment: 10/2018 Positive stress test while inpatient at [facility] 12) Elevated PSA ([facility] [[email or web address]] [id number]) comment: neg biopsy dec 2020 - [facility] 13) History of Polyp of Colon ([facility] [[email or web address]] [id number]) comment: scope 06/16/2019- polyp 14) Chronic Post-Traumatic Stress Disorder ([facility] [[email or web address]] [id number]) 15) H/O: surgery comment: Lft thyroidectomy ( benign) 02/2021,; ventral hernia repair (mesh comment: c-spine fusion 12/2022 16) Exposure to potentially hazardous substance FAMILY HISTORY: No new updates. SOCIAL HISTORY: NICOTINE: Nicotine User: No ILLICIT DRUGS: No ETOH: denies ALLERGIES: Patient has answered NKA ALLERGY REVIEW: Allergy list reviewed and remains current. MEDICATION RECONCILIATION: I have reviewed the patient's medication list with the patient and/or his/her care-vibration technician. Handwritten corrections, additions and/or deletions were made to the list. Corrected Outpatient Medication List was provided to the patient/caregiver. Active Outpatient Medications (including Supplies): Active Outpatient Medications Status 1) EMPAGLIFLOZIN 25MG TAB TAKE ONE-HALF TABLET BY MOUTH ACTIVE ONCE A DAY FOR DIABETES Active Non-VA Medications Status 1) Non-VA ACCU-CHEK [...] TAB 0.4MG UNDER THE ACTIVE TONGUE NEEDED 17 Total Medications REVIEW OF SYSTEMS: General: Normal No Fevers, Chills, Weight Loss, Weight Gain, Recent Illness. Ears, Nose, Mouth, Throat: Normal No new loss of hearing or tinnitus, no Dental issue, Difficulty swallowing, Vertigo. Eye: Normal No Trauma, Cataracts, Glaucoma, Blurred vision Cardiovascular: Normal No Chest pain, Dizziness, Palpitations. Respiratory: Normal No Cough, SOB, Hemoptysis, Epistaxis, Influenza symptoms, +PDD. PHYSICAL EXAMINATION: General appearance: VITALS (most recent, as listed in the electronic record): B/P: 134/76 (01/21/2024 14:37) Pulse: 90 (01/21/2024 14:37) Temperature: 97.8 F [36.6 C] (01/21/2024 14:37) Weight: 169 lb [76.66 kg] (01/21/2024 14:37) Height: 67 in [170.2 cm] (01/21/2024 14:37) BMI: 26.5 Pain: 6 (01/21/2024 14:37) (0-10 scale) General: pleasant, cooperative, well-developed, well-nourished, appropriately dressed and groomed ; in no acute distress. Ears, Nose, Mouth, Throat:NC/AT,MMM, no thyromegaly Eye:PERRL, no nystagmus Cardiovascular:RRR,murmur Respiratory:Clear to auscultation bilaterally. No accessory muscle use. Respirations even and non-labored ABD/GI:soft, non-tender. BS + x 4. /TIN ROOFER: Deferred Lymph: No lymphadenopathy Extremities:No pedal edema. Psych:Affect appropriate. Neuro: Oriented x3. Gait steady with normal stride. Hematology: Color good. No pallor. No ecchymosis or petechiae. Skin:No visualized abnormalities. DATA REVIEW: SLT - Lab Tests Selected Collection DT Specimen Test Name Result Units Ref Range 03/12/2023 08:43 BLOOD HGA1C 6.0 % 4.0 - 6.0 09/11/2022 13:40 BLOOD HGA1C 6.0 % 4.0 - 6.0 09/19/2021 13:21 BLOOD HGA1C 6.0 % 4.0 - 6.0 = TRIGLYCERIDE 75 mg/dL 09/11/2022 13:40 CHOLESTEROL 122 mg/dL 09/11/2022 13:40 HDL(New) 43 mg/dL 09/11/2022 13:40 CALCULATED LDL 64 mg/dL 09/11/2022 13:40 = SODIUM 142 mEq/L 03/12/2023 08:43 POTASSIUM 4.6 mEq/L 03/12/2023 08:43 CHLORIDE 107 mEq/L 03/12/2023 08:43 UREA NITROGEN 24.0 mg/dL 03/12/2023 08:43 CREATININE 0.86 mg/dL 03/12/2023 08:43 CALCIUM 9.9 mg/dL 03/12/2023 08:43 PROTEIN 7.4 g/dL 09/11/2022 13:40 ALBUMIN 4.4 g/dL 09/11/2022 13:40 ALKALINE PHOSPHATASE 93 U/L 09/11/2022 13:40 ALT/SGPT 22 U/L 09/11/2022 13:40 AST/SGOT 30 U/L 09/11/2022 13:40 TOTAL BILIRUBIN 0.8 mg/dL 09/11/2022 13:40 CARBON DIOXIDE 27 mEq/L 03/12/2023 08:43 GLUCOSE 90 mg/dL 03/12/2023 08:43 EGFR (CKD-EPI 2020) 90.3 03/12/2023 08:43 = WBC 9.4 10*3/uL 09/11/2022 13:40 RBC 3.84 L 10*6/uL 09/11/2022 13:40 HGB 12.3 L g/dL 09/11/2022 13:40 HCT 36.8 L % 09/11/2022 13:40 MCV 95.8 fL 09/11/2022 13:40 MCH 32.0 pg 09/11/2022 13:40 MCHC 33.4 g/dL 09/11/2022 13:40 RDW 13.2 % 09/11/2022 13:40 PLT 289 10*3/uL 09/11/2022 13:40 MPV 11.5 H fL 09/11/2022 13:40 NEUTROPHILS, AUTO % 64 % 09/11/2022 13:40 LYMPHOCYTES, AUTO % 25 % 09/11/2022 13:40 MONOCYTES, AUTO % 7 % 09/11/2022 13:40 EOSINOPHILS, AUTO % 3 % 09/11/2022 13:40 BASOPHILS, AUTO % 0 % 09/11/2022 13:40 NEUTROPHILS, ABSOLUTE 6.08 10*3/uL 09/11/2022 13:40 LYMPHOCYTES, ABSOLUTE 2.40 10*3/uL 09/11/2022 13:40 MONOCYTES, ABSOLUTE 0.63 10*3/uL 09/11/2022 13:40 EOSINOPHILS, ABSOLUTE 0.26 10*3/uL 09/11/2022 13:40 BASOPHILS, ABSOLUTE 0.04 10*3/uL 09/11/2022 13:40 = PROST. SPECIFIC AG.(PB-STL) 5.001 H* ng/mL 09/11/2022 13:40 PROST. SPECIFIC AG.(PB-STL) 4.393 H* ng/mL 09/19/2021 13:21 PROST. SPECIFIC AG.(PB-STL) 4.684 H* ng/mL 01/21/2021 08:05 PROST. SPECIFIC AG.(PB-STL) 4.599 H* ng/mL 10/07/2020 08:58 = TSH 2.349 uIU/mL 09/11/2022 13:40 = URIC ACID: No data available for: URIC ACID = No B12 EO data found = VITAMIN D, 25-HYDROXY 62.8 ng/mL 09/11/2022 13:40 = INR: No INR EO data found = URINE COLOR Yellow 09/11/2022 13:40 APPEARANCE Clear 09/11/2022 13:40 U.PH 6.0 09/11/2022 13:40 U.BILIRUBIN Negative mg/dL 09/11/2022 13:40 U.NITRITE Negative mg/dL 09/11/2022 13:40 = Urine Microalbumin: CREATuF: 101.0 (09/11/22 13:40) M/CREAT: 21 (09/11/22 13:40) MICRAL: 21.0 (09/11/22 13:40) = No METHADONE PANEL EO data found = Dilantin: ____ = Digoxin: No data available for: DIGOXIN = Chest x-ray: No data available for: CHEST 2 VIEWS PA&LAT = EKG: No data available for: EKG CONSULT STL EKG CONSULTS PB EKG RESULTS MA Result: Acceptable Follow-up Action: Data results reviewed with patient ASSESSMENT/PLAN: # vertigo r/o BPPV, head ct to rule out organic brain pathology. cont meclizine prn,.fall prec. avoid driving when vertigo is severe. call if he wants to proceed with vestibular rehab #. DM: at goal. cont metformin Rx by pvt PCP, cont to check his blood sugars at home.losartan and statin on board.reports annual eye exam UTD #. HTN:stable. cont losartan and amlodipine #. HLD: lipids at goal. cont statin #. gerd: stable, cont Famotidine. #. hypogonadism: stable, cont testosterone gel, followed by endocrinology #. diverticulosis: stable, no flareups, monitored by pvt PCP, last scope 05/2019. noted polyp. #. MVP: stable followed by Cardio #. DM neuropathy: taking B12, tolerable and not bothersome, did not tolerate gabapentin. monitor #. tremors- monitor #. PTSD/Depression- mood stable. denies Si/HI. monitor. #. Incidental finding of lung nodule on cardiac CT july 2020. repeat Chest CT july 2021 showed stable 4 mm nodule compared to previous imaging. [facility] #. elevated psa s/p NEG prostate bipsy, monitor # Back and neck pain 2/2 DDD and spnal stenosis-pain controlled. monitor. continue stretching exercises. topical nsaid prn for joint pains. RETURN TO CLINIC:6-9 mo Return to Clinic order placed SUMMARY STATEMENT: Plan of care has been discussed with including expected therapeutic benefits and potential side effects of prescribed medication and treatments. [place] verbalizes understanding and is in agreement with the plan of care. Patient was instructed to keep all scheduled appointments and contact central supply aide for any additional problems. PREVENTION & SCREENING: ALCOHOL: Clinical Reminder not due now or within a month BLOOD PRESSURE: Clinical Reminder not due now or within a month HEMOGLOBIN A1C: Clinical Reminder not due now or within a month PAVE Foot Check: A complete foot check was completed at this encounter. VISUAL INSPECTION: Includes inspection for skin breaks, deformity, erythema, trauma, pallor on elevation, dependent rubor, nail deformities, extensive callus and pitting edema. Visual exam results: Normal PEDAL PULSES: Includes palpation of dorsalis and posterior tibial pulses and signs/symptoms of vascular compromise like pain, pallor, parasthesia or paralysis. Present (even if diminished) SENSORY CHECK: Includes 10 gram Monofilament ([place]-Saray) test of sensation. Intact (Greater than or equal to 80% of sites checked) Abnormal (Less than 80% of sites checked): Intact LOW-RISK: LOW RISK INFORMATION PROVIDED: 1. Advised patient not to walk barefoot. 2. Explained the importance of daily foot checks for changes. 3. Stressed the importance of daily foot hygiene, including bathing and complete drying. The patient verbalized understanding and was offered a detailed handout on diabetic foot care. /marisa/ LORAINE MORGAN MD Signed: 01/31/2024 10:21 LORAINE MORGAN [facility]
[2024-07-14 17:55] LABS: Free T4 Free Thyroxine 1.06 ng/dL (0.78-2.19)
[2024-07-14 18:15] LABS: Vitamin D 25 Hydroxy 78.9 ng/mL
[2024-07-14 19:09] LABS: Hemoglobin A1C 5.9 % (<5.7)
== END 2024-07-14 14:18 | disposition home or self-care (01) ==
PROVIDERS: PCP Internal Medicine; Visit Provider Internal Medicine
DX: E55.9 Vitamin D deficiency, unspecified (principal); I10 Essential (primary) hypertension; E11.9 Type 2 diabetes mellitus without complications; E78.5 Hyperlipidemia, unspecified; E78.2 Mixed hyperlipidemia; Z13.29 Encounter for screening for other suspected endocrine disorder; Z79.899 Other long term (current) drug therapy
CPT/HCPCS: 36415; 80053; 80061; 82306; 83036; 84439; 84443; 85025

== ENCOUNTER 2025-01-06 15:03 | Outpatient (CLI) | payer OTHER, SELFPAY ==
--- NOTE | ~2025-01-06 | MR_ITS ---
EXAMINATION: MR brain/brain stem wo con DATE: 01/06/2025 15:34 INDICATION: Dizziness. TECHNIQUE: Magnetic resonance imaging (MRI) of the brain and brainstem was performed without intravenous contrast. COMPARISON: None. FINDINGS: There is no intracranial hemorrhage, acute infarction, or abnormal intracranial mass lesion. There are scattered areas of nonspecific increased T2- weighted signal intensity in the cerebral white matter. The ventricles are normal in size. There is mild mucosal thickening in the paranasal sinuses. The orbits are normal. The mastoid air cells are normal. IMPRESSION: 1. Moderate nonspecific cerebral white matter disease, which likely represents chronic small vessel ischemic disease. Reviewed, dictated and finalized at location E.
== END 2025-01-06 15:04 | disposition home or self-care (01) ==
LOC: MICIMG 15:04
PROVIDERS: PCP Internal Medicine
DX: R42 Dizziness and giddiness (principal); R90.82 White matter disease, unspecified
CPT/HCPCS: 70551

== ENCOUNTER 2025-03-30 06:41 | Outpatient (CLI) | payer MEDICARE, SELFPAY ==
--- OUTSIDE RECORDS SUMMARY | 2025-03-30 06:45 | XMS_ITS | Encounter Summary ---
Author Organization [facility] Address [address] [place] [id number] Care Team Providers Care Provider Enrollment Specialist Name Role Phone Joel Graff MD Primary Care Provider [phone] Beny Mauricio MD Unavailable [phone] Encounter Details Date Type Department Care Team (Late st Contact Info) Description 10/24/2021 Abstract [facility] [address] Lorna Galloway MA Social History Tobacco Use [...] Status No 11/01/2018 6:39 PM CDT Luis Ann RN Active documented as of this encounter Mental Status * Because of a physical, mental, or emotional condition, do you have serious difficulty concentrating, remembering, or making decisions? Answer Entry Date Author Status No 11/01/2018 6:39 PM CDT Luis Ann, RN Active documented in this encounter Plan of Treatment Upcoming Encounters Date Type Department Care Team (Late st Contact Info) Description 12/21/2025 9:00 AM CDT Appointment [facility] [place] [address] Bertin Blevins MD Three [facility]. [facility] [address] [place], [place] [id number] 01/26/2026 10:15 AM CDT Office Visit [facility] [facility], [facility] [address] [place], [place] [address] Vianney Amezcua DIGITAL MEDIA BUYER-C [facility]. [facility] [address] [place] [address] documented as of this encounter Procedures Procedure [...] encounter Results * COMPREHENSIVE METABOLIC PANEL (05/18/2022) SODIUM S/P/B 143 GLUCOSE 103 mg/dL AST 33 BUN 25 CREATININE S/P/B 1.10 0.7 - 1.3 CALCIUM S/P/B 9.7 POTASSIUM S/P/B 4.9 CHLORIDE S/P/B 106 ALT 34 GFR ESTIMATE >60 Narrative Resulting Agency Comment us Default History Genericprovider LABORATORY Final Result * LIPID PANEL (05/18/2022) CHOLESTEROL 122 TRIGLYCERIDES 49 HDL 41 DIRECT LDL 58 Narrative Resulting Agency Comment us Default History Genericprovider LABORATORY Final Result * CBC, MANUAL DIFF (05/18/2022) WBC 7.4 HGB 13.0 HCT 37.9 PLT 271 Narrative Resulting Agency Comment Default History Genericprovider LABORATORY Final Result * THYROXINE, FREE (FT4) (05/18/2022) Pathologist [facility] FREE T4 1.07 Narrative Resulting Agency Comment Result [facility] Default History Genericprovider LABORATORY Final Result * THYROID STIM HORMONE, TSH (05/18/2022) Pathologist [facility] TSH 2.440 Narrative Resulting Agency Comment Result [facility] History Genericprovider LABORATORY Final Result * CBC, MANUAL DIFF (11/01/2021) Pathologist [facility] WBC 8.9 HGB 12.0 HCT 35.0 PLT 243 Narrative Resulting Agency Comment Result [facility] Genericprovider LABORATORY Final Result * COMPREHENSIVE METABOLIC PANEL (10/17/2021) Pathologist [facility] SODIUM S/P/B 139 GLUCOSE 113 mg/dL AST 26 BUN 22 CREATININE S/P/B 1.0 0.7 - 1.3 CALCIUM S/P/B 9.0 POTASSIUM S/P/B 4.0 CHLORIDE S/P/B 106 ALT 22 GFR ESTIMATE >60 Narrative Resulting Agency Comment Result [facility] Genericprovider LABORATORY Final Result * LIPID PANEL (10/17/2021) Pathologist [facility] CHOLESTEROL 119 TRIGLYCERIDES 62 HDL 42 LDL (CALCULATED) 51 Narrative Resulting Agency Comment Result [facility] History Genericprovider LABORATORY Final Result * CBC, MANUAL DIFF (10/17/2021) Pathologist [facility] WBC 7.6 HGB 12.5 HCT 36.7 PLT 235 Narrative Resulting Agency Comment Result [facility] History Genericprovider LABORATORY Final Result * THYROXINE, FREE (FT4) (10/17/2021) Pathologist [facility] FREE T4 0.97 Narrative Resulting Agency Comment Result [facility] History Genericprovider LABORATORY Final Result * THYROID STIM HORMONE, TSH (10/17/2021) Pathologist [facility] TSH 2.320 Narrative Resulting Agency Comment Default History Genericprovider LABORATORY Final Result * HEMOGLOBIN, GLYCOSYLATED (09/19/2021) [facility] HGB A1C 6.0 % 09/19/2021 us Doc [facility] LABORATORY Final Result * CBC (OUTSIDE LAB) (09/19/2021) [facility] WBC 9.1 HGB 12.8 HCT 37.9 PLT 270 09/19/2021 Doc [facility] Abstract LAB-OUTSIDE/ABSTRACTED Final Result * THYROID STIM HORMONE, TSH (09/19/2021) [facility] TSH 2.340 09/19/2021 us Doc [facility] LABORATORY Final Result * VITAMIN D, 25 OH (09/19/2021) [facility] VITAMIN D 25 HYDROXY S/P/B 60.8 09/19/2021 us Doc [facility] LABORATORY Final Result * LIPID PANEL (09/19/2021) [facility] CHOLESTEROL 117 HDL 42 TRIGLYCERIDES 70 LDL (CALCULATED) 61 09/19/2021 us Doc [facility] LABORATORY Final Result * COMPREHENSIVE METABOLIC PANEL (09/19/2021) [facility] SODIUM S/P/B 140 POTASSIUM S/P/B 3.6 CO2 [...] on filedocumented in this encounter Care Teams Provider Enrollment Specialist Relationship Specialty Start Date End Date Joel Graff MD [address] [place] [phone] PCP - General INTERNAL MEDICINE 10/30/18 Beny Mauricio MD [address] [facility] [address] [place] [address] [place] Senior Datastage Developer CARDIOVASCULAR DISEASE 07/09/19 documented as of this encounter
--- OUTSIDE RECORDS SUMMARY | 2025-03-30 06:45 | XMS_ITS | Encounter Summary ---
Author Organization [facility] Address [address] [place] [address] Care Team Providers Care Die Maker Trim Name Role Phone Joel Graff MD Primary Care Provider [phone] Encounter Details Date Type Department Care Team (Late st Contact Info) Description 10/05/2020 Lab Requisition [facility] D[facility] Lab [address] [facility] [place] [phone] Ellen Cardenas DO [address] [place] [address] Social History Tobacco Use Types Packs/Day Years Used Date Smoking Tobacco: Never Assessed Sex and Gender Information Value Date Recorded Sex Assigned at Not on file Legal Sex Male 10:19 AM CDT Gender Identity Not on file Sexual Orientation Not on file documented as of this encounter Plan of Treatment Not on file documented as of this encounter Procedures Procedure Name Priority Date/Time Associated Diagnosis Comments DERMATOPATHOLOGY Routine 10/04/2020 12:0 0 AM CDT documented in this encounter Results * DERMATOPATHOLOGY (10/04/2020 12:00 AM CDT) Case Report Dermatopathology Report Case: [id number] Authorizing Provider: Ellen Cardenas DO Collected: 10/04/2020 12:00 AM Ordering Location: [facility] Derm[facility] Lab Received: 10/05/2020 11:04 AM Pathologist: [...] microscopic description) 2:00 PM T DERMATOPATHOLOGY LABORATORY at 1400 CDT Clinical History A: Nevus vs cyst R/O atypia, changing per patient. B: Nevus R/O atypia. C: R/O NMSC. 2:00 PM CDT DERMATOPATHOLOGY LABORATORY Gross Description Specimen A: Received is one formalin filled container labeled with the patient's name and designated mid back superior. The specimen consists of a shave measuring [id number]. Jar 0. Specimen B: Received is one formalin filled container labeled with the patient's name and designated mid back inferior. The specimen consists of a shave measuring [id number]. Jar 0. Specimen C: Received is one formalin filled container labeled with the patient's name and designated right chin. The specimen consists of a shave measuring [id number]. Jar 0. 2:00 PM T DERMATOPATHOLOGY LABORATORY [...] sections were obtained and reviewed. 2:00 PM CDT DERMATOPATHOLOGY LABORATORY Disclaimer An external and internal positive and negative controls are appropriate for the histochemical, immunohistochemical and immunofluorescence stain(s) in this case (if any), except where stated explicitly. The performance characteristics of the stain(s) cited in this report were developed and its performance characteristic determined by the Dermatopathology Laboratory at [facility], directed by Dr. Lionel Dumont. These tests need not be, and therefore are not, approved by the [place] Food and Drug Administration. The tests are used for clinical purposes. Billing Codes Specimen Charges Stain Charges 37750 [id number] 1 1 1 1 2:00 PM CDT DERMATOPATHOLOGY LABORATORY Embedded Images 1 2:00 PM CDT DERMATOPATHOLOGY LABORATORY Pathology/Cytology TISSUE SPECIMEN FROM SKIN / Unknown 10/04/2020 10/05/2020 11:04 AM CDT Miscellaneous samples (specimen) TISSUE SPECIMEN FROM SKIN / Unknown 10/04/2020 10/05/2020 11:04 AM CDT Miscellaneous samples (specimen) TISSUE SPECIMEN FROM SKIN / Unknown 10/04/2020 10/05/2020 11:04 AM CDT us Ellen Cardenas DO LAB - PATHOLOGY/CYTOLOGY ORDERABLES Final Result DERMATOPATHOLOGY LABORATORY [facility] - Department of Dermatology [facility] [address] [place] [address], [address] [phone] documented in this encounter Visit Diagnoses Not on filedocumented in this encounter Care Teams Die Maker Trim Relationship Specialty Start Date End Date Joel Graff MD [address] [facility] [address] [place] [address] PCP - General 10/04/20 documented as of this encounter
--- OUTSIDE RECORDS SUMMARY | 2025-03-30 06:45 | XMS_ITS | Clinical Summary ---
Author Organization [facility] Address [facility] [address] Care Team Providers Care Steffen House Supervisor Name Role Phone Joel Graff MD Primary Care Provider [phone] Fred Staples Unavailable [phone] Bertin Kelley MD PhD Unavailable [phone] Allergies Active Allergy Reactions Criticality Noted Date Comments Adhesive Rash Medium 07/25/2019 Medications amLODIPine (NORVASC) 5 mg tabletIndication s:hypertension Take 1 tablet (5 mg total) by mouth every morning 3 Active atorvastatin (LIPITOR) 80 mg tabletIndication s:hyperlipidemia Take 1 tablet (80 mg total) by mouth foster winder before breakfast 3 Active Folplex 2.2 2.2-25-0.5 mg tabletIndication s:Vitamin Deficiency Prevention Take 1 tablet by mouth foster winder before breakfast 3 Active famotidine (PEPCID) 20 mg tabletIndication s:Heartburn Prevention Take 1 tablet (20 mg total) by mouth foster winder before breakfast 3 Active isosorbide mononitrate ER (IMDUR) 30 mg 24 hr tabletIndication s:prevention of anginal pain in coronary artery disease Take 1 tablet (30 mg total) by mouth foster winder before breakfast 3 Active losartan (COZAAR) 50 mg tabletIndication s:hypertension Take 1 tablet (50 mg total) by mouth foster winder before breakfast 3 Active metFORMIN (GLUCOPHAGE) 1,000 mg tabletIndication s:type 2 diabetes mellitus Take 1 tablet (1,000 mg total) by mouth every morning 3 Active cholecalciferol, vitamin D3, 1,000 unit tablet,chewableI ndications:Preve ntion of Vitamin D Deficiency Take 1 tablet/chew tab by mouth foster winder before breakfast Active UNABLE TO FINDIndications: supplement Take 1 each by mouth foster winder before breakfast Med Name: Prevagen Active vitamin b complex tabletIndication s:Vitamin Deficiency Prevention Take 1 tablet by mouth foster winder before breakfast Active docusate sodium (COLACE) 100 [...] (81 mg total) by mouth 0 Active cyanocobalamin (Vitamin B-12) 1,000 mcg/mL injection ADMINISTER 1 ML IN THE MUSCLE MONTHLY 5 Active meclizine (ANTIVERT) 25 mg tablet Take 25 mg by mouth 4 Active gabapentin (NEURONTIN) 300 mg capsule Take 1 capsule (300 mg total) by mouth daily 5 Active mecobalamin, vitamin B12, 5,000 mcg tablet,disintegr ating Take by mouth 4 Active Active Problems Problem Noted Date Diagnosed Date Abnormal finding on imaging 01/23/2025 Occlusion and stenosis of bilateral carotid josh casimiro 01/23/2025 Paresthesia of skin 01/15/2025 Sensorineural hearing loss, bilateral 01/15/2025 Diaphoresis 12/24/2024 DJD (degenerative joint disease) 12/24/2024 Dysuria 12/24/2024 Elevated serum homocysteine level 12/24/2024 Fatigue 12/24/2024 Gout 12/24/2024 Grade I diastolic dysfunction 12/24/2024 Overview (01/29/2025): Echo Hearing loss 12/24/2024 Herpes zoster 12/24/2024 Intracranial carotid stenosis, bilateral 025 Iron deficiency anemia 12/24/2024 Left shoulder pain 12/24/2024 Levoscoliosis of lumbar spine 12/24/2024 Light headedness 12/24/2024 Lung nodule 12/24/2024 Microscopic hematuria 12/24/2024 Neck pain 12/24/2024 Olecranon bursitis of right elbow 12/24/2024 Pain of right great toe 12/24/2024 Peripheral neuropathy 12/24/2024 Prostatitis 12/24/2024 Recurrent incisional hernia 12/24/2024 Right groin pain 12/24/2024 Spondylosis 12/24/2024 Thyroid nodule 12/24/2024 Total knee replacement status 12/24/2024 Trigger finger, left middle finger 12/24/2024 Trochanteric bursitis, left hip 12/24/2024 Umbilical hernia 12/24/2024 UTI (urinary tract infection) 12/24/2024 History of colonic polyps 10/17/2024 Overview (01/15/2025): Mar 07, 2021 Entered By: LORAINE RUTLEDGE Comment: scope 06/16/2019- polyp Exposure to potentially hazardous substance 11/29 Chronic back pain greater than 3 months duration 03/08/2023 Depressive disorder 03/08/2023 Diabetic neuropathy 03/08/2023 Gastroesophageal reflux disease without esophagi tis 03/08/2023 High prostate specific antigen (PSA) 03/08/2023 Overview (03/08/2023): Mar 07, 2021 Entered By: LORAINE RUTLEDGE Comment: neg biopsy dec 2020 - 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 On telemetry in ED in [facility] Known mitral valve prolapse Chest pain 10/30/2018 [...] Assessment & Plan: Cont home lipitor 20mg Encounters Date Type Department Care Team Description 01/29/2025 9:56 AM CDT - 01/29/2025 11:59 PM CDT Hospital Encounter [facility] [address] [place] [address] Discharge Disposition: Discharge to home or self care 01/29/2025 8:00 AM CDT [facility] [address] [place] [address] for Advanced Medicine 6th [place] [address] [place] [address] Judy Espana MD Intracranial atherosclerosis (Primary Dx) 01/23/2025 3:14 PM CDT - 01/23/2025 11:59 PM CDT Hospital Encounter [facility] [address] [place] [address] Discharge Disposition: Discharge to home or self care 01/07/2025 [facility] [address] [place] [address] Charlette George from Last 3 Months Immunizations Immunization Administration Dates Next Due Influenza, Quad, Adjuvantate d, Intramuscular 01/21/2022,12/19/2020 Influenza, Quadrivalent, Hig h Dose, Preservative Free, Intrr 12/28/2019 Influenza, Trivalent, Adjuva nted, Intramuscular 02/10/2017 Influenza, Trivalent, High D ose, Split, Preservative Free, Intramuscular 01/26/2024,01/26/2019,02/03/2018,01/28,02/06/2015 Influenza, Trivalent, IM (MDV) 01/31/2013 Influenza, Unspecified 01/29/2020,2018,02/03/2018,02/10,01/27/2016,01/28/2015,01/18/2014 ,01/31/2013,03/09/2012 Pfizer SARS-CoV-2 Monovalent Vaccination (12+ Yrs) PURPLE 06/14/2020,05/23/2020 Pneumococcal Conjugate PCV 13 07/19/2015, 015 Pneumococcal Polysaccharide PPV23 02/10/2017, Tdap 02/26/2022,03/15/2015 ZOSTER LIVE 06/03/2018,03/15/2015,05/26/2011 Medical History Medical History Date Comments Type 2 diabetes mellitus Hypertension Heart disease Family History Medical History [...] on file Legal Sex 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 Gender Identity Not on file Sexual Orientation Not on file 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 Not on file Not on file Last Filed Vital Signs Vital Sign Reading Time Taken Comments Blood Pressure 128/67 01/29/2025 8:05 AM CDT Pulse 68 01/29/2025 8:05 AM CDT Temperature 36.7 C (98.1 F) 01/30/2024 7:52 AM CDT Respiratory Rate 18 01/30/2024 8:21 AM CDT Oxygen Saturation 98% 01/30/2024 8:21 AM CDT Inhaled Oxygen Concentration - - Weight 78.4 kg (172 lb 12.8 oz) 01/29/2025 8:05 AM CDT Height 165.1 cm (5' 5) 01/29/2025 8:05 AM CDT Body Mass Index 28.76 01/29/2025 8:05 AM CDT Plan of Treatment Health Maintenance Due Date Last Done Comments Albumin Creatinine Ratio, Urine 1945 Depression Screening 1945 Hepatitis C Screening 1945 Dilated Eye Exam 1947 Foot Exam 1947 Hepatitis B Screening 1965 Well Visit 65+ 2012 Zoster Vaccine (2 of 3) 07/29/2018 06/03/19 19, 03/15/2015, 05/26/2011 Lipid Panel 05/18/2023 05/18/2022, 10/30/2018 Hemoglobin A1C 07/16/2023 01/15/2023 eGFR 01/16/2024 01/15/2023 Fall Risk Assessment 01/27/2024 01/26/2023 Covid-19 Vaccine (2024-2 6 season) 2024 01/28/2022, 09/18/2021, 01/30/2021, Additional history exists Influenza Vaccine (#1) 2024 , 01/21/2022, 12/19/2020, Additional history exists DTaP/Tdap/Td Vaccine (3 - Td or Tdap) 02/27/2032 02/26/2022, 03/15/2015 Pneumococcal vaccine 65+ Completed 017, 09/11/2016, 07/19/2015, Additional history exists Medical Devices Implanted Type Area Studio Operator Device Identifier Shelf Expiration Date Model / Serial / Lot Rt Total Knee Arthroplasty Knee [employer] Allograft Bone Putty 2.5cc - [id number] Implanted:Qty: 1 on 01/24/2023 by Bertin Kelley MD PhD at [facility] N/A: Spine Cervical [employer] [id number] 03/29/2025 / / [id number] Allosource Canpac Nonpurge Frozen Graft 50cc Bone [id number] - [id number] - [id number] Implanted:Qty: 1 on 01/24/2023 by Bertin Kelley MD PhD at [facility] N/A: Spine Cervical Allosource 10/16/2027 [id number] / [id number] / Jeanette [employer] Virage 3.5mm 14mm Polyaxial Spine Screw Bone Nonsterile 07.92906.007 - [id number] Implanted:Qty: 8 on 01/24/2023 by Bertin Kelley MD PhD at [facility] N/A: Spine Cervical [employer]ANETTE [employer] [id number] 07 / / [employer]ette [employer] Virage 4mm 28mm Self Tap Polyaxial Friction Fit Spine Screw Bone 07.68419.064 - [id number] Implanted:Qty: 2 on 01/24/2023 by Bertin Kelley MD PhD at [facility] N/A: Spine Cervical [employer] [id number] 64 / / [employer]ette [employer] Virage 3.5mm 70mm Branden Spinal Titanium Nonsterile 07.70548.007 - [id number] Implanted:Qty: 2 on 01/24/2023 by Bertin Kelley MD PhD at [facility] N/A: Spine Cervical [employer] 07.13991.0 07 / / [employer] Virage Closure Top Lid Sterilization Nonsterile Disposable Screw 07.73494.001 - [id number] Implanted:Qty: 10 on 01/24/2023 by Bertin Kelley MD PhD at [facility] N/A: Spine Cervical [employer] 07.02227.0 01 / / Procedures Procedure Name Priority Date/Time Associated Diagnosis Comments NEURO CT OUTSIDE REFERENCE Routine 01/29/2025 9:56 AM CDT NEURO MR OUTSIDE REFERENCE Routine 01/23/2025 3:14 PM CDT EGFR Routine 01/15/2023 3:16 PM CDT Cervical disc disorder with myelopathy of mid-cervical region POCT HEMOGLOBIN A1C Routine 01/15/2023 2 :26 PM CDT from Last 3 Months or Most Recently Relevant to Health Maintenance Results * Neuro CT Outside Reference (01/29/2025 9:56 AM CDT) Impressions [facility] - 01/29/2025 9:56 AM CDT These images are for Reference purposes only and have not been reviewed by [facility] Radiology. There will be no report generated by a [facility] Radiologist. Narrative RAD_[facility] - 01/29/2025 9:56 AM CDT EXAMINATION: Images For Reference Purposes Only Judy Espana MD IMG CT PROCEDURES Final Re sult Performing Organization Address [facility]/ZIP Co de Phone Number [email or web address] * Neuro MR Outside Reference (01/23/2025 3:14 PM CDT) Impressions [facility] - 01/23/2025 3:14 PM CDT These images are for Reference purposes only and have not been reviewed by [facility] Radiology. There will be no report generated by a [facility] Radiologist. Narrative [facility] - 01/23/2025 3:14 PM CDT EXAMINATION: Images For Reference Purposes Only Judy Espana MD IMG MRI PROCEDURES Final R esult Performing Organization Address [facility]/ZIP Co de Phone Number [email or web address] * (ABNORMAL) eGFR (01/15/2023 3:16 PM CDT) eGFR 78(L) 90 - 130 mL/min/1. 73 m2 [facility] Comment: Interpretive Data Reference Interval Normal [...] ORDERABLES Jennifer l Result Performing Organization Address [facility] Co de Phone Number [facility] [place] [address] * POCT hemoglobin A1c (01/15/2023 2:26 PM CDT) Pathologist [facility] Hgb A1C, POC 5.2 4.0 - 5.6 % [facility] Est Average Gluc POC 103 mg/dL [facility] Comment: The ADA recommends reporting an estimated Average Glucose (eAG) with all Hemoglobin A1c results using the equation derived from a study of 507 normal and diabetic adults. Minority populations were underrepresented and children were not included. (Diabetes Care 31:6115-3868, 2008). The eAG is not equivalent to a fasting glucose. Blood 01/15/2023 2:26 PM CDT 01/15/2023 2:26 PM CDT Bertin Kelley MD PhD POINT OF CARE TEST ORDERA BLES Final Result Performing Organization Address [facility] Co de Phone Number [facility] [place] [address] from Last 3 Months or Most Recently Relevant to Health Maintenance Insurance MEDICARE [facility] MEDICARE SUPPLEMENT MEDICARE [facility] MEDICARE SUPPLEMENT Advance Directives For more information, please contact: [phone] Documents on File Type Date Recorded Patient Tyre Builder Expl anation ADVANCE DIRECTIVE 01/18/2023 11:56 PM PHIL R OF AUDIO VIDEO TECHNICIAN-MEDICAL * Full Code (Latest Code Status on File) Date Activated Date Inactivated Comments 01/24/2023 7:10 PM 01/26/2023 7:31 PM Care Teams Steffen House Supervisor Relationship Specialty Start Date End Date Joel Graff MD PCP - General Internal Medicine 08/14/22 Fred Staples PA [address] [place] [address] Physician Director Social Service Neurosurgery 01/14/24 Bertin Kelley MD PhD [address] [facility] [place] [address] Consulting Physician Neurosurgery 01/14/24
--- OUTSIDE RECORDS SUMMARY | 2025-03-30 06:45 | XMS_ITS | Clinical Summary ---
Author Organization [facility] Address [address] [place] [address] Care Team Providers Care Front Counter Attendant Name Role Phone Joel Graff MD Primary Care Provider [phone] Source Comments [facility],non-owned Affiliates and Associated Physician Practices is amultiple site organization consisting of ambulatory clinics and hospital sitesin [place], [place], [place] and [place]. This disclosure is being madepursuant to the Care Everywhere program and may not contain all information available regarding this patient. Last updated 18.[facility] Allergies No known active allergies Encounters Date Type Department Care Team Description 03/11/2025 Transcribe Orders [facility] - Centralized Scheduling [address] [place] [address] [facility] Transient cerebral ischemia, unspecified type from Last 3 Months Immunizations Immunization Administration Dates Next Due INFLUENZA VACCINE, HIGH-DOSE [...] yrs (1 - 1-dose 75+ series) 2022 DEPRESSION SCREENING 04/30/2024 COVID-19 VACCINE ( - 2024- season) 2024 01/28/2022, 09/18/2021, 01/30/2021, Additional history exists INFLUENZA VACCINE (#1) 2024 , 01/29/2020, 01/28/2019, Additional history exists HEPATITIS B VACCINE Aged Out No longe r eligible based on patient's age to complete this topic HIB VACCINE Aged Out No longer eligi ble based on patient's age to complete this topic HPV VACCINE Aged Out No longer eligi ble based on patient's age to complete this topic MENINGOCOCCAL (Group B) VACCINE SHARED DECISION-MAKING Aged Out No longer eligible based on patient's age to complete this topic MENINGOCOCCAL GROUPS A/C/Y/W VACCINE Aged Out No longer eligible based on patient's age to complete this topic Insurance MEDICARE MEDICARE MEDICARE [facility] Care Teams Front Counter Attendant Relationship Specialty Start Date End Date Joel Graff MD [address] [place] [address] PCP - General 10/04/20
--- OUTSIDE RECORDS SUMMARY | 2025-03-30 06:45 | XMS_ITS | Encounter Summary ---
Author Organization [facility] Address [address] [place] [address] Care Team Providers Care On Site Property Manager Name Role Phone Joel Graff MD Primary Care Provider [phone] Beny Mauricio MD Unavailable [phone] Encounter Details Date Type Department Care Team (Late st Contact Info) Description 11/07/2018 Hospital Follow-up Call [facility] [place] [address] Vianca Vaughn Social History Tobacco Use Types [...] No 11/01/2018 6:39 PM CDT Luis Ann , RN Active * Do you have difficulty [...] Info) Description 12/21/2025 9:00 AM CDT Appointment [facility] Vascular Lab [address] [facility] [address] Bertin Blevins MD [address] [facility]. [address] [place], [place] [address] 01/26/2026 10:15 AM CDT Office Visit [facility], [address] [place], [place] [address] Vianney Amezcua, HONEY GRADER AND BLENDER-C [facility]. [address] [place], [place] [address] documented as of this encounter Visit Diagnoses Not on filedocumented in this encounter Care Teams On Site Property Manager Relationship Specialty Start Date End Date Joel Graff MD [address] [facility] [address] [place] [address] PCP - General INTERNAL MEDICINE 10/30/18 Beny Mauricio MD 3 [facility] [address] [place] [id number] [place] Clinical Interviewer CARDIOVASCULAR DISEASE 07/09/19 documented as of this encounter
--- OUTSIDE RECORDS SUMMARY | 2025-03-30 06:45 | XMS_ITS | Encounter Summary ---
Author Organization [facility] Address [address] [place] [address] Care Team Providers Care Measurement Superintendent Name Role Phone Joel Graff MD Primary Care Provider [phone] Beny Mauricio MD Unavailable [phone] Encounter Details Date Type Department Care Team (Late st Contact Info) Description 01/29/2020 Abstract [facility], [address] [address] Lorna Galloway MA Social History Tobacco Use [...] Info) Description 12/21/2025 9:00 AM CDT Appointment [facility] V[facility] Lab [facility] [place] [address] Bertin Blevins MD Three [facility]. [address] [place] [address] 01/26/2026 10:15 AM CDT Office Visit [facility], [address] [place] [address] Vianney Amezcua, STEAMSHIP AGENT-C [facility]. [facility] [address] [place] [address] documented as of this encounter Procedures Procedure [...] GLYCOSYLATED (12/15/2019) HGB A1C 5.8 % 12/15/2019 us Doc [facility] Final Result * LIPID PANEL (12/15/2019) CHOLESTEROL 118 HDL 36 TRIGLYCERIDES 66 LDL (CALCULATED) 60 12/15/2019 us Doc [facility] Final Result * BASIC METABOLIC PANEL (12/15/2019) SODIUM S/P/B 139 POTASSIUM S/P/B 4.4 CO2 30 CHLORIDE S/P/B 102 GLUCOSE 111 mg/dL CALCIUM S/P/B 9.5 BUN 20 CREATININE S/P/B 1.0 0.7 - 1.3 EGFR NON-AFR. AMER. >60 <=90 12/15/2019 us Doc [facility] Final Result * HEMOGLOBIN, GLYCOSYLATED (08/05/2019) HGB A1C 5.9 % 08/05/2019 us Doc [facility] Final Result * THYROID STIM HORMONE, TSH (08/05/2019) TSH 1.930 08/05/2019 us Doc [facility] Final Result * LIPID PANEL (08/05/2019) CHOLESTEROL 126 HDL 40 TRIGLYCERIDES 66 DIRECT LDL 67 08/05/2019 us Doc [facility] Final [...] on filedocumented in this encounter Care Teams Measurement Superintendent Relationship Specialty Start Date End Date Joel Graff MD [address] [address] PCP - General INTERNAL MEDICINE 10/30/18 Beny Mauricio MD [address] [facility] [address] [place] [phone] [place] [address] [place] CARDIOVASCULAR DISEASE 07/09/19 documented as of this encounter
[2025-03-30 07:20] LABS: Hematocrit 42.2 % (42.0-52.0); Hemoglobin 14.2 g/dL (14.0-18.0); Immature Granulocyte Percent A 0.5 % (0-0.5); Lymphocytes Absolute Auto 2.07 K/mm3 (0.9-3.2); Mean Corpuscular HGB Conc 33.6 g/dl (32-36); Mean Corpuscular Hemoglobin 32.9 pg (26-34); Mean Corpuscular Volume 97.7 fl (80-100); Nucleated Red Blood Cells Absolute Auto 0.000 K/mm3 (0.0-0.012); Nucleated Red Blood Cells Perc 0.0 % (0.0-0.2); Platelet Count Result 280 k/mm3 (150-375); Red Blood Count 4.32 M/mm3 (4.6-6.20); White Blood Count 9.2 K/mm3 (4.5-10.0)
[2025-03-30 07:40] LABS: Alanine Aminotransferase 33 U/L (6-50); Albumin Level 4.4 g/dL (3.5-5.1); Alkaline Phosphatase 90 U/L (38-126); Anion Gap 6 mmol/L (4-12); Aspartate Amino Transferase 34 U/L (17-59); Bilirubin,Total 1.0 mg/dL (0.2-1.3); Blood Urea Nitrogen 28 mg/dL (9-20); Calcium 10.1 mg/dL (8.4-10.2); Carbon Dioxide 30 mmol/L (22-30); Chloride 104 mmol/L (98-107); Cholesterol 142 mg/dL (0-200); Estimated Glomerular Filt Rate > 60; Glucose 100 mg/dL (65-110); HDL Direct 47 mg/dL; Potassium 4.5 mmol/L (3.4-5.0); Sodium 140 mmol/L (137-145); Total Protein 7.3 g/dL (6.3-8.2); Triglycerides 66 mg/dL (<150)
[2025-03-30 07:54] LABS: Hemoglobin A1C 5.9 % (<5.7)
[2025-03-30 07:55] LABS: Free T4 Free Thyroxine 1.02 ng/dL (0.78-2.19)
[2025-03-30 08:15] LABS: Thyroid Stimulating Hormone 2.130 uIU/mL (0.465-4.680)
[2025-03-30 08:50] LABS: Vitamin B12 937.0 pg/mL (239-931)
== END 2025-03-30 06:42 | disposition home or self-care (01) ==
LOC: ANHLAB 06:42
PROVIDERS: PCP Internal Medicine; Visit Provider Internal Medicine
DX: E53.8 Deficiency of other specified B group vitamins (principal); I10 Essential (primary) hypertension; E11.9 Type 2 diabetes mellitus without complications; E78.2 Mixed hyperlipidemia; Z13.29 Encounter for screening for other suspected endocrine disorder; Z79.899 Other long term (current) drug therapy
CPT/HCPCS: 36415; 80053; 80061; 82607; 82746; 83036; 84439; 84443; 85025